=== PATIENT | female | born 1995 | race Two or more races ===

== ENCOUNTER 2021-06-05 13:47 | Outpatient (REF) | payer MEDICAID, SELFPAY ==
[2021-06-05 14:42] LABS: COVID-19 Test Positive (Negative)
== END 2021-06-05 13:48 | disposition home or self-care (01) ==
LOC: HO.LAB 13:47
PROVIDERS: Visit Provider Internal Medicine
DX: Z20.822 Contact with and (suspected) exposure to COVID-19 (principal)
CPT/HCPCS: 36415; 87635; C9803

== ENCOUNTER 2021-06-07 15:58 | Emergency (ER) | payer MEDICAID, SELFPAY ==
--- NOTE | ~2021-06-07 | CT_ITS ---
EXAMINATION: CT ANGIOGRAM OF THE CHEST WITH AND WITHOUT CONTRAST (CT PULMONARY ANGIOGRAM FOR PE) CLINICAL INFORMATION: positive COVID. Chest pain. COVID pneumonia? PE? COMPARISON: Chest x-ray 06/07/2021 TECHNIQUE: Prior to contrast administration, noncontrast localization images were obtained. Subsequently, multidetector volumetric imaging was performed from the thoracic inlet to below the diaphragms following the administration of 80 mL Omnipaque 350 intravenous contrast. No contrast reaction reported Sagittal, coronal, and MIP oblique sagittal reformatted images were obtained on the CT workstation, uploaded to PACS, and reviewed. This CT examination was performed using dose optimization techniques as appropriate, variously including the following: *Automated exposure control *Adjustment of mA and/or kV according to patient size (this includes techniques or standardized protocols for targeted exams where dose is matched to indication/reason for exam; i.e. extremities or head) *Use of iterative reconstruction technique Total exam dose-length product 209 mGy-cm FINDINGS: QUALITY OF STUDY/CONTRAST BOLUS: Satisfactory. PULMONARY ARTERIES: No central or segmental pulmonary emboli. THORACIC AORTA: No aneurysm or dissection. LUNG: No focal consolidation, nodules or masses. PLEURA: No pleural effusion or pneumothorax. MEDIASTINUM: Normal heart size. No pericardial effusion. No hilar or mediastinal lymphadenopathy. No evidence of septal bowing or right heart strain. CHEST WALL/AXILLA: No axillary or internal mammary lymphadenopathy. OSSEOUS STRUCTURES: No acute or suspicious osseous abnormality. UPPER ABDOMEN: Unremarkable. No reflux of contrast into the hepatic veins to suggest elevated right heart pressures. CT/CT angio chest PE protocol IMPRESSION: No pulmonary embolus seen. The lungs are clear. VTE: negative
--- NOTE | ~2021-06-07 | XR_ITS ---
EXAMINATION: XR CHEST CLINICAL INFORMATION: Covid pneumonia COMPARISON: None TECHNIQUE: Frontal view of the chest was obtained. FINDINGS: No significant abnormality is noted involving the heart, lungs, mediastinum, bony thorax or soft tissues. XR/XR chest 1V IMPRESSION: Unremarkable examination.
--- NOTE | ~2021-06-07 | CT_ITS ---
EXAMINATION: CT HEAD WITHOUT CONTRAST CT CERVICAL SPINE WITHOUT CONTRAST CLINICAL INFORMATION: Seizure, fall. COMPARISON: None TECHNIQUE: Contiguous axial imaging was performed from the skull base to vertex without intravenous administration of contrast. Contiguous axial imaging was performed from the upper chest through the skull base without intravenous administration of contrast. Coronal and sagittal reformats were obtained at the acquisition workstation. This CT examination was performed using dose optimization techniques as appropriate, variously including the following: *Automated exposure control *Adjustment of mA and/or kV according to patient size (this includes techniques or standardized protocols for targeted exams where dose is matched to indication/reason for exam; i.e. extremities or head) *Use of iterative reconstruction technique DLP: 299 mGy-cm FINDINGS: Head: There is no evidence of acute intracranial hemorrhage or edematous territorial infarction. There is no abnormal attenuation within the brain parenchyma. Ott-white matter differentiation is preserved. The ventricles are normal in size and configuration. No evidence for obstructive hydrocephalus. No abnormal mass effect or midline shift. No extra-axial fluid collections. No acute soft tissue or osseous abnormalities. Partial opacification of several ethmoidal air cells. The mastoids are clear. Cervical Spine: The atlantooccipital and atlantoaxial articulations remain well aligned. Straightening of the normal cervical lordosis. Otherwise, there is anatomic alignment of the vertebral bodies and posterior elements. No evidence of acute fracture or subluxation. The vertebral body heights and disc spaces are maintained. There is no prevertebral soft tissue swelling. The thyroid gland and remaining cervical soft tissues are normal in appearance. The lung apices demonstrate no abnormalities. CT/CT cervical spine wo con IMPRESSION: 1. No acute intracranial pathology. 2. No acute cervical fractures or malalignment. 3. Paranasal sinus disease in the ethmoidal air cells, correlate clinically for acute sinusitis.
[2021-06-07 16:21] LABS: Glucose, Whole Blood 84 mg/dL (60-115)
[2021-06-07 16:24] VITALS: BP 153/86; PULSE 92; RESP 18; TEMP 37.7; BMI 23.0
--- NOTE | 2021-06-07 16:24 | ECG_ITS ---
Test Reason : HEADACHE Blood Pressure : / mmHG Vent. Rate : 071 BPM Atrial Rate : 071 BPM P-R Int : 120 ms QRS Dur : 080 ms QT Int : 398 ms P-R-T Axes : 013 060 063 degrees QTc Int : 432 ms Normal sinus rhythm Normal ECG No previous ECGs available Referred By: Davide Bell Electronically Signed By:BRITANY POTTS MD
--- NOTE | 2021-06-07 16:29 | ED_ITS ---
HPI - General Adult General Chief complaint: Headache Stated complaint: covid + chest pain Time Seen by Provider: 06/07/21 16:23 Source: patient Mode of arrival: ambulatory Limitations: no limitations History of Present Illness HPI narrative: 25-year-old with past medical history of seizures recently tested positive for COVID yesterday presents to the ED for COVID like complaints. While waiting in the waiting room, patient seemed to have had a seizure-like episode on the floor. Patient brought to the main ED when she came to herself she states she has history of seizure and missed Dose of Keppra. Patient s tates she is not vaccinated and diagnosed with COVID yesterday. Patient states having headache, body aches, fever, chills, and chest pain. Related Data Allergies Allergy/AdvReac Type Severity Reaction Status Date / Time No Known Allergies Allergy Verified 06/07/21 16:24 Review of Systems Review of Systems: Yes all other systems are reviewed and are negative Constitutional: Constitutional: Reports as per HPI, Reports no additional constitutional complaints, Reports body ache(s), Reports chills, Reports fever(s) and Reports headache(s) Eyes: Eyes: Reports as per HPI and Reports no additional eye complaints ENT: Reports system reviewed and no additional complaints, except as documented, Reports as per HPI and Reports headache(s) Cardiovascular: Cardiovascular: Reports as per HPI, Reports no additional cardiovascular complaints and Reports chest pain Respiratory: Respiratory: Reports as per HPI and Reports no additional respiratory complaints Gastrointestinal: Gastrointestinal: Reports as per HPI and Reports no additional gastrointestinal complaints Genitourinary: Genitourinary: Reports no additional female genitourinary complaints and Reports as per HPI Musculoskeletal: Musculoskeletal: Reports no additional musculoskeletal complaints and Reports as per HPI Integumentary/Breasts: Skin/Breast: Reports system reviewed and no additional complaints, except as docu and Reports as per HPI Neurologic: Reports system reviewed and no additional complaints, except as documented, Reports as per HPI, Reports headache(s) and Reports seizure-like activity (waiting room) Psychiatric: Psychiatric: Reports no additional psychiatric complaints and Reports as per HPI [facility] Past Medical History Medical History (Updated 06/08/21 @ 00:03 by Sujata Dadieudonne) Seizures Social History Social History Advance Directives: No Advance Directives Information Provided: No Physical Exam Vital Signs: Vital Signs: Last Vital Signs Temp 99.9 F 06/07/21 16:24 Pulse 92 06/07/21 16:24 Resp 18 06/07/21 16:24 BP 153/86 H 06/07/21 16:24 BMI result Body Mass Index 23.0 Const: Other: After seizure patient alert oriented x3 General: cooperative, healthy appearing, comfortable, no acute distress, well developed, alert, awake and Physically active Orientation/consciousness: patient oriented x3 HENMT: Head: Yes normal to inspection, Yes No palpable skull fracture present, Yes normocephalic, Yes atraumatic and No abrasion Eyes: General: appearance normal, both eyes and all related structures Neck: Neck: Yes normal visual inspection, Yes full ROM, Yes no lymphadenopathy, Yes no meningeal signs, Yes trachea midline, Yes supple, No anterior neck swelling and No tender Chest: Chest palpation & inspection: normal inspection of the chest and normal palpation of entire chest wall Resp: Effort & Inspection: normal respiratory effort and able to speak in complete sentences Auscultation: clear to auscultation bilaterally Cardio: Jugular venous distension: no JVD Heart sounds: S1 normal heart sound present and S2 normal heart sound present GI: Inspection: Yes normal to inspection and No abdominal wall ecchymosis Palpation (GI): Soft to palpation, not firm, nontender, no guarding and not rigid : General: No CVA tenderness and Yes no CVA tenderness Back/Spine/Pelvis: Back: no CVA tenderness, No CVA tenderness and No back tenderness Skin: General skin exam: no rashes or lesions noted and elasticity normal Neuro: Other: patient no longer post-itcal General: patient oriented x3, gait normal, no meningeal signs and CN's II-XI intact bilaterally Cranial nerves: Yes CN's II-XII intact bilaterally Extrem: General: Yes normal to inspection and Yes full ROM Psych: Appearance: grossly normal, well kempt and not disheveled Course Course Course Narrative: Patient seems to have had seizure-like activity in the waiting room and came out of her postictal state. Keppra ordered. Patient states she missed her Keppra dose today. Patient also states having chest pain so will do EKG cardiac labs and chest x-ray. Fluids ordered. Fingerstick 84 per Reevaluation(s) Reevaluation #1: EKG negative STEMI. Head CT chest CT negative for bleed or PE. Chest CTA was done due to patient stating having chest pain and then seizure in the waiting room. Head CT negative for bleed negative for neck fracture. Patient alert oriented x3. Patient encouraged to continue self quarantine. Patient informed to be compliant with Keppra medication. Patient states at baseline she is anemic and usually has low blood count. There is no other H&H to compare in our system. Patient denies any rectal bleeding. Patient admits to history of heavy menstruation but presently is not on her menstruation. Rectal exam was discussed with patient to rule out any GI bleeding but patient refused and states she will follow-up with her primary care provider. Time: 20:59 Medical Decision Making MDM Narrative Medical decision making narrative: COVID. Seizure Lab Data Result diagrams: 06/07/21 16:45 06/07/21 16:45 Labs: Lab Results 06/07/21 06/07/21 06/07/21 Range/Units 16:15 16:45 16:45 WBC 5.7 (4.8-10.8) X10*3/uL RBC 4.61 (4.20-5.50) X10*6/uL Hgb 8.8 L (12.0-16.0) g/dl Hct 27.7 L (37.0-47.0) % MCV 60.1 L (80.0-98.0) fL MCH 19.1 L (27.0-33.0) pg MCHC 31.8 (31.0-35.0) g/dl RDW 17.0 H (11.0-16.0) % Plt Count 235 (160-400) X10*3/uL MPV 10.5 (9.4-12.3) fL Immature Gran % (Auto) 0.2 (0.0-0.4) % Neut % (Auto) 38.6 L (45-73) % Lymph % (Auto) 45.8 H (20-40) % Hickman % (Auto) 14.3 H (2-11) % Eos % (Auto) 0.9 (0-4) % Baso % (Auto) 0.2 (0-2) % Lymph # (Auto) 2.6 (1.2-4.9) X10*3/uL Hickman # (Auto) 0.8 (0.1-1.2) X10*3/uL Eos # (Auto) 0.1 (0.0-0.4) X10*3/uL Baso # (Auto) 0.0 (0.0-0.2) X10*3/uL Abs Immat Gran (auto) 0.01 (0.00-0.03) X10*3/uL Absolute Neuts (auto) 2.2 (2.0-8.3) x10*3/uL Absolute Nucleated RBC 0.000 (0.0-0.012) X10*3/uL Nucleated RBC % (auto) 0.0 (0.0-0.2) /100WBC Smear Tech's Comments VERIFIED PT 12.3 (9.9-13.0) SEC INR 1.1 (0.9-1.1) APTT 34.0 (24.1-38.0) SEC Sodium (135-145) mmol/L Potassium (3.3-5.1) mmol/L Chloride (96-108) mmol/L Carbon Dioxide (22-29) mmol/L Anion Gap (12-20) BUN (9-16) mg/dL Creatinine (0.5-1.4) mg/dL Estim Creat Clear Calc Estimated GFR POC Glucose 84 (60-115) mg/dL Random Glucose (60-115) mg/dL Calcium (8.4-10.2) mg/dL Ferritin (10-122) ng/mL Total Bilirubin (0.0-1.0) mg/dL AST (5-31) U/L ALT (0-31) U/L Alkaline Phosphatase (39-117) U/L Lactate Dehydrogenase (122-220) U/L Troponin I High Sens (<3.5-17.0) ng/L Total Protein (6.5-8.0) g/dL Albumin (3.5-5.0) g/dL Procalcitonin ng/mL Beta HCG, Quant mIU/mL 06/07/21 06/07/21 06/07/21 Range/Units 16:45 16:45 16:45 WBC (4.8-10.8) X10*3/uL RBC (4.20-5.50) X10*6/uL Hgb (12.0-16.0) g/dl Hct (37.0-47.0) % MCV (80.0-98.0) fL MCH (27.0-33.0) pg MCHC (31.0-35.0) g/dl RDW (11.0-16.0) % Plt Count (160-400) X10*3/uL MPV (9.4-12.3) fL Immature Gran % (Auto) (0.0-0.4) % Neut % (Auto) (45-73) % Lymph % (Auto) (20-40) % Hickman % (Auto) (2-11) % Eos % (Auto) (0-4) % Baso % (Auto) (0-2) % Lymph # (Auto) (1.2-4.9) X10*3/uL Hickman # (Auto) (0.1-1.2) X10*3/uL Eos # (Auto) (0.0-0.4) X10*3/uL Baso # (Auto) (0.0-0.2) X10*3/uL Abs Immat Gran (auto) (0.00-0.03) X10*3/uL Absolute Neuts (auto) (2.0-8.3) x10*3/uL Absolute Nucleated RBC (0.0-0.012) X10*3/uL Nucleated RBC % (auto) (0.0-0.2) /100WBC Smear Tech's Comments PT (9.9-13.0) SEC INR (0.9-1.1) APTT (24.1-38.0) SEC Sodium 139 (135-145) mmol/L Potassium 3.9 (3.3-5.1) mmol/L Chloride 109 H (96-108) mmol/L Carbon Dioxide 24 (22-29) mmol/L Anion Gap 10 L (12-20) BUN 10 (9-16) mg/dL Creatinine 0.69 (0.5-1.4) mg/dL Estim Creat Clear Calc 88.7 Estimated GFR > 60 POC Glucose (60-115) mg/dL Random Glucose 90 (60-115) mg/dL Calcium 9.3 (8.4-10.2) mg/dL Ferritin 6 L (10-122) ng/mL Total Bilirubin 0.4 (0.0-1.0) mg/dL AST 16 (5-31) U/L ALT 17 (0-31) U/L Alkaline Phosphatase 46 (39-117) U/L Lactate Dehydrogenase 135 (122-220) U/L Troponin I High Sens < 3.5 (<3.5-17.0) ng/L Total Protein 7.6 (6.5-8.0) g/dL Albumin 4.3 (3.5-5.0) g/dL Procalcitonin < 0.02 ng/mL Beta HCG, Quant mIU/mL 06/07/21 Range/Units 16:45 WBC (4.8-10.8) X10*3/uL RBC (4.20-5.50) X10*6/uL Hgb (12.0-16.0) g/dl Hct (37.0-47.0) % MCV (80.0-98.0) fL MCH (27.0-33.0) pg MCHC (31.0-35.0) g/dl RDW (11.0-16.0) % Plt Count (160-400) X10*3/uL MPV (9.4-12.3) fL Immature Gran % (Auto) (0.0-0.4) % Neut % (Auto) (45-73) % Lymph % (Auto) (20-40) % Hickman % (Auto) (2-11) % Eos % (Auto) (0-4) % Baso % (Auto) (0-2) % Lymph # (Auto) (1.2-4.9) X10*3/uL Hickman # (Auto) (0.1-1.2) X10*3/uL Eos # (Auto) (0.0-0.4) X10*3/uL Baso # (Auto) (0.0-0.2) X10*3/uL Abs Immat Gran (auto) (0.00-0.03) X10*3/uL Absolute Neuts (auto) (2.0-8.3) x10*3/uL Absolute Nucleated RBC (0.0-0.012) X10*3/uL Nucleated RBC % (auto) (0.0-0.2) /100WBC Smear Tech's Comments PT (9.9-13.0) SEC INR (0.9-1.1) APTT (24.1-38.0) SEC Sodium (135-145) mmol/L Potassium (3.3-5.1) mmol/L Chloride (96-108) mmol/L Carbon Dioxide (22-29) mmol/L Anion Gap (12-20) BUN (9-16) mg/dL Creatinine (0.5-1.4) mg/dL Estim Creat Clear Calc Estimated GFR POC Glucose (60-115) mg/dL Random Glucose (60-115) mg/dL Calcium (8.4-10.2) mg/dL Ferritin (10-122) ng/mL Total Bilirubin (0.0-1.0) mg/dL AST (5-31) U/L ALT (0-31) U/L Alkaline Phosphatase (39-117) U/L Lactate Dehydrogenase (122-220) U/L Troponin I High Sens (<3.5-17.0) ng/L Total Protein (6.5-8.0) g/dL Albumin (3.5-5.0) g/dL Procalcitonin ng/mL Beta HCG, Quant < 2 mIU/mL ECG Data Interpretation: Normal sinus rhythm, normal EKG. Ventricular rate 71. Pr interval 120. QRS 80. QTC 432. Negative STEMI Discharge Plan Discharge Clinical Impression: COVID-19, Seizure Patient Disposition: Home, Self-Care Instructions: Recurrent Seizures in Adults (ED), COVID-19 (Coronavirus Disease 2019) (ED) Additional Instructions: Pili s?ntomas se deben a COVID. El diagn?stico result? negativo por embolia pulmonar, hemorragia cerebral, fractura de bhavesh o ataque card?aco. Convulsiones debidas a la omisi?n de valdez dosis de keppra. Contin?e con el autoaislamiento. Regrese al servicio de urgencias si tiene dolor en el pecho, dificultad para respirar, debilidad, mareos, dificultad para hablar, declive facial, par?lisis de valdez extremidad, convulsiones recurrentes o cualquier otro s?ntoma preocupante. Stand Alone Forms: Work/School Release Interventions: ED Discharge Assessment Last Done: 06/07/21 21:20 Discharge Date/Time: 06/07/21 21:26 Print Language: Nauruan
[2021-06-07] MEDS: 0.9 % Sodium Chloride 1,000 ML 999 ML IV ×2 (16:48→17:51)
[2021-06-07 16:55] LABS: Basophils Percent Auto 0.2 % (0-2); Hemoglobin 8.8 g/dl (12.0-16.0); SCAN SMEAR FLAG 1
[2021-06-07 16:57] LABS: Eosinophils Absolute Auto 0.1 X10*3/uL (0.0-0.4); Eosinophils Percent Auto 0.9 % (0-4); Hematocrit 27.7 % (37.0-47.0); Imm Gran Abs Auto 0.01 X10*3/uL (0.00-0.03); Imm Gran Pct Auto 0.2 % (0.0-0.4); Lymphocytes Absolute Auto 2.6 X10*3/uL (1.2-4.9); Lymphocytes Percent Auto 45.8 % (20-40); MANUAL DIFF FLAG SCAN; Mean Corpuscular HGB Conc 31.8 g/dl (31.0-35.0); Mean Corpuscular Hemoglobin 19.1 pg (27.0-33.0); Mean Platelet Volume 10.5 fL (9.4-12.3); Monocytes Absolute Auto 0.8 X10*3/uL (0.1-1.2); Monocytes Percent Auto 14.3 % (2-11); Neutrophils Absolute Auto 2.2 x10*3/uL (2.0-8.3); Neutrophils Percent Auto 38.6 % (45-73); Platelet Count 235 X10*3/uL (160-400); Red Blood Count 4.61 X10*6/uL (4.20-5.50); White Blood Count 5.7 X10*3/uL (4.8-10.8)
[2021-06-07] MEDS: levETIRAcetam in NaCl (iso-os) 1,000 MG/100 ML PIGGYBACK 400 MG IV (17:00)
[2021-06-07 17:10] LABS: INTERNATIONAL NORM RATIO 1.1 (0.9-1.1); Prothrombin Time 12.3 SEC (9.9-13.0)
[2021-06-07 17:13] LABS: Alanine Aminotransferase 17 U/L (0-31); Albumin Level 4.3 g/dL (3.5-5.0); Alkaline Phosphatase 46 U/L (39-117); Anion Gap 10 (12-20); Aspartate Amino Transferase 16 U/L (5-31); Bilirubin Total 0.4 mg/dL (0.0-1.0); Blood Urea Nitrogen 10 mg/dL (9-16); Calcium 9.3 mg/dL (8.4-10.2); Carbon Dioxide 24 mmol/L (22-29); Chloride 109 mmol/L (96-108); Creatinine Clr Calc Pharmacy 88.7; Estimated Glomerular Filt Rate > 60; Glucose Random 90 mg/dL (60-115); Lactate Dehydrogenase 135 U/L (122-220); Potassium 3.9 mmol/L (3.3-5.1); Sodium 139 mmol/L (135-145); Total Protein 7.6 g/dL (6.5-8.0)
[2021-06-07 17:16] LABS: Troponin-I High Sensitivity < 3.5 ng/L (<3.5-17.0)
[2021-06-07 17:17] LABS: Mean Corpuscular Volume 60.1 fL (80.0-98.0); PLT ABN DIST 1
[2021-06-07 17:29] LABS: Procalcitonin < 0.02 ng/mL; SLIDE REVIEW VERIFIED
[2021-06-07 17:35] LABS: Ferritin 6 ng/mL (10-122)
[2021-06-07] MEDS: Acetaminophen 325 MG TABLET 650 MG PO (17:50)
[2021-06-07 18:08] LABS: HCG Quantitative < 2 mIU/mL
[2021-06-07] MEDS: iohexoL 350 MG/ML 100 ML INFUS..BTL IV (18:48)
== END 2021-06-07 21:26 | disposition home or self-care (01) ==
PROVIDERS: Physician Assistant; Emergency Provider Emergency Medicine Emergency Medical Services
DX: U07.1 COVID-19 (principal); R56.9 Unspecified convulsions; Z79.899 Other long term (current) drug therapy
CPT/HCPCS: 36415; 70450; 71045; 71275; 72125; 80053; 82728; 82947; 83615; 84145; 84484; 84702; 85025; 85610; 85730; 93005; 96361; 96374; 99284; J1953; Q9967

== ENCOUNTER 2021-07-04 08:55 | Emergency (ER) | payer MEDICAID, OTHER, SELFPAY ==
[2021-07-04] VITALS (8 sets, daily range): BP systolic 99–130; BP diastolic 51–70; PULSE 76–113; RESP 16–18; TEMP 36.6–36.8; O2SAT 94–100; BMI 18.7
[2021-07-04] MEDS: LORazepam 2 MG/ML VIAL IM (09:50)
--- NOTE | 2021-07-04 10:02 | PC.NURSE ---
while in [facility] patient began to have tremors wei hands, eye rolling, difficulty responding to RN. was brought to [facility], evaluated by MD and placed in a bed for IM ativan. Before full dose of injection was administered pt began to relax and was able to follow basic command of opening eyes . skin remained PWD throughout episode which lasted aprox 5 minutes in total.
[2021-07-04 10:32] LABS: MANUAL DIFF FLAG NO
[2021-07-04 10:39] LABS: INTERNATIONAL NORM RATIO 1.1 (0.9-1.1); Prothrombin Time 12.2 SEC (9.9-13.0)
[2021-07-04 10:40] LABS: Basophils Percent Auto 0.3 % (0-2); Eosinophils Absolute Auto 0.1 X10*3/uL (0.0-0.4); Hematocrit 28.1 % (37.0-47.0); Hemoglobin 8.8 g/dl (12.0-16.0); Imm Gran Abs Auto 0.02 X10*3/uL (0.00-0.03); Imm Gran Pct Auto 0.3 % (0.0-0.4); Lymphocytes Percent Auto 27.9 % (20-40); Mean Corpuscular HGB Conc 31.3 g/dl (31.0-35.0); Mean Corpuscular Hemoglobin 19.1 pg (27.0-33.0); Mean Platelet Volume 10.6 fL (9.4-12.3); Monocytes Absolute Auto 0.6 X10*3/uL (0.1-1.2); Neutrophils Absolute Auto 4.3 x10*3/uL (2.0-8.3); Neutrophils Percent Auto 61.5 % (45-73); Platelet Count 268 X10*3/uL (160-400); Red Cell Distribution Width 17.1 % (11.0-16.0)
[2021-07-04 10:41] LABS: Mean Corpuscular Volume 61.1 fL (80.0-98.0); Partial Thromboplastin Time 35.8 SEC (24.1-38.0)
[2021-07-04 10:48] LABS: Alanine Aminotransferase 9 U/L (0-31); Albumin Level 4.6 g/dL (3.5-5.0); Alkaline Phosphatase 43 U/L (39-117); Anion Gap 10 (12-20); Aspartate Amino Transferase 14 U/L (5-31); Bilirubin Total 1.2 mg/dL (0.0-1.0); Blood Urea Nitrogen 11 mg/dL (9-16); Calcium 9.4 mg/dL (8.4-10.2); Carbon Dioxide 22 mmol/L (22-29); Chloride 109 mmol/L (96-108); Creatinine Clr Calc Pharmacy 105.7; Estimated Glomerular Filt Rate > 60; Glucose Random 90 mg/dL (60-115); Potassium 4.1 mmol/L (3.3-5.1); Sodium 137 mmol/L (135-145); Total Protein 7.9 g/dL (6.5-8.0)
[2021-07-04 10:55] LABS: HCG Quantitative < 2 mIU/mL
--- NOTE | 2021-07-04 10:58 | ED_ITS ---
HPI - General Adult General Chief complaint: Weakness Stated complaint: WEAK ABD LABS Time Seen by Provider: 07/04/21 09:34 Source: patient Mode of arrival: ambulatory Limitations: no limitations History of Present Illness HPI narrative: 25 yold female with pmh seizure and anemia presents to the ED for lethargy and blood transfusion. patient was informed by her PCP last week that she needed a blood tranfusion due to her Hemoglobin of 7. patient states she refused the blood transfusion. patient states she has scheduled Iron transfussion tomorrow. patien states since last week feeling weak and at work had a near syncopal episode. patient states feeling lightheaded so she came to the ED for possible blood tranfusion. patient denies any chest pain or shortness of breath. patient states anemia due to having vaginal bleeding during mensturaiton. patieint presently denies any vaginal bleding or rectal bleeding. patient states no abdominal pain. ptient denies passing out. Related Data Allergies Allergy/AdvReac Type Severity Reaction Status Date / Time No Known Allergies Allergy Verified 07/04/21 09:08 Review of Systems Verdana 4l Review of Systems: Verdana 4d lightheadedness. anemia. Verdana 4d fatigue. Verdana 4d Yes all other systems are reviewed and are negative FORMERLY [facility], 1928–1983 Social History Social History Alcohol intake: never Patient Tobacco Use Status: Never used Tobacco Physical Exam Verdana 4l Vital Signs: Verdana 4d Verdana 4d Vital Signs: Verdana 4d Verdana 4Bd Last Vital Signs Verdana 4d Cyber Security New 4d Cyber Security New 4d Temp 98.2 F 07/04/21 12:07 Cyber Security New 4d Pulse 108 H 07/04/21 14:12 Cyber Security New 4d Resp 18 07/04/21 14:12 BP 102/60 07/04/21 14:12 Pulse Ox 100 07/04/21 14:12 BMI result Body Mass Index 18.7 Const: Other: patient calm collective after receiving ativan for possible panic attack vs seizure in waiting room. General: cooperative, healthy appearing, comfortable, no acute distress, well developed, alert and awake Orientation/consciousness: patient oriented x3 HENMT: Head: Yes normal to inspection, Yes No palpable skull fracture present, Yes normocephalic, Yes atraumatic and No abrasion Eyes: General: appearance normal, both eyes and all related structures Neck: Neck: Yes normal visual inspection, Yes full ROM, Yes no lymphadenopathy, Yes no meningeal signs, Yes trachea midline, Yes supple, No anterior neck swelling and No tender Chest: Chest palpation & inspection: normal inspection of the chest and normal palpation of entire chest wall Resp: Effort & Inspection: normal respiratory effort and able to speak in complete sentences Auscultation: clear to auscultation bilaterally Cardio: Jugular venous distension: no JVD Heart sounds: S1 normal heart sound present and S2 normal heart sound present GI: Inspection: Yes normal to inspection and No abdominal wall ecchymosis Palpation (GI): Soft to palpation, not firm, nontender, no guarding and not rigid : General: No CVA tenderness and Yes no CVA tenderness Back/Spine/Pelvis: Back: no CVA tenderness, No CVA tenderness and No back tenderness Skin: General skin exam: no rashes or lesions noted and elasticity normal Neuro: Other: negative pronator drift. negative slurred speech. negative facial droop. all extremites equal strength 5+. Finger to nose and rapid hand movement intact. General: patient oriented x3, gait normal, tone normal, moves all extremities, Normal light touch and pain sensation, no meningeal signs, no focal motor deficits, CN's II-XI intact bilaterally, normal sensation to monofilament and deep tendon reflexes 2+ bilaterally Extrem: General: Yes normal to inspection and Yes full ROM Psych: Appearance: grossly normal, well kempt and not disheveled Course Course Course Narrative: type and scree and labs including fluids ordered. patient had seizure like activity in the waiting room and was given ativan by Dr. Virk. patient states she takes keppra, but did not take her suppossed dose. Reevaluation(s) Reevaluation #1: Patient's hemoglobin and hematocrit improved. last week hemoglobin was 7 and today its 8.8. negative for any neurodeficits. No head CT indicated. NIH score is 0. Not suspecting PE. . Heart Score is 0. patient is on progestin birthcontrol and not estrogen. Waiting for orthostatics. EKG negative STEMI Time: 10:29 Reevaluation #2: Orthostatics is negtives. patient feels better. patient will follow up with her PCP tomorrow for Iron Transfusion. Time: 14:42 Medical Decision Making MDM Narrative Medical decision making narrative: Anemia Lab Data Result diagrams: 07/04/21 10:29 07/04/21 10:29 Labs: Lab Results 07/04/21 07/04/21 07/04/21 Range/Units 10:29 10:29 10:29 WBC 7.0 (4.8-10.8) X10*3/uL RBC 4.60 (4.20-5.50) X10*6/uL Hgb 8.8 L (12.0-16.0) g/dl Hct 28.1 L (37.0-47.0) % MCV 61.1 L (80.0-98.0) fL MCH 19.1 L (27.0-33.0) pg MCHC 31.3 (31.0-35.0) g/dl RDW 17.1 H (11.0-16.0) % Plt Count 268 (160-400) X10*3/uL MPV 10.6 (9.4-12.3) fL Immature Gran % (Auto) 0.3 (0.0-0.4) % Neut % (Auto) 61.5 (45-73) % Lymph % (Auto) 27.9 (20-40) % [place] % (Auto) 9.0 (2-11) % Eos % (Auto) 1.0 (0-4) % Baso % (Auto) 0.3 (0-2) % Lymph # (Auto) 2.0 (1.2-4.9) X10*3/uL [place] # (Auto) 0.6 (0.1-1.2) X10*3/uL Eos # (Auto) 0.1 (0.0-0.4) X10*3/uL Baso # (Auto) 0.0 (0.0-0.2) X10*3/uL Abs Immat Gran (auto) 0.02 (0.00-0.03) X10*3/uL Absolute Neuts (auto) 4.3 (2.0-8.3) x10*3/uL Absolute Nucleated RBC 0.000 (0.0-0.012) X10*3/uL Nucleated RBC % (auto) 0.0 (0.0-0.2) /100WBC PT 12.2 (9.9-13.0) SEC INR 1.1 (0.9-1.1) APTT 35.8 (24.1-38.0) SEC Sodium 137 (135-145) mmol/L Potassium 4.1 (3.3-5.1) mmol/L Chloride 109 H (96-108) mmol/L Carbon Dioxide 22 (22-29) mmol/L Anion Gap 10 L (12-20) BUN 11 (9-16) mg/dL Creatinine 0.67 (0.5-1.4) mg/dL Estim Creat Clear Calc 105.7 Estimated GFR > 60 Random Glucose 90 (60-115) mg/dL Calcium 9.4 (8.4-10.2) mg/dL Total Bilirubin 1.2 H (0.0-1.0) mg/dL AST 14 (5-31) U/L ALT 9 (0-31) U/L Alkaline Phosphatase 43 (39-117) U/L Troponin I High Sens (<3.5-17.0) ng/L Total Protein 7.9 (6.5-8.0) g/dL Albumin 4.6 (3.5-5.0) g/dL Beta HCG, Quant < 2 mIU/mL Urine Color Urine Appearance Urine pH (5.0-8.0) Ur Specific [place] (1.005-1.025) Urine Protein (NEG-TRACE) MG/DL Urine Glucose (UA) (NEG) MG/DL Urine Ketones (NEG) MG/DL Urine Blood (NEG) Urine Nitrite (NEG) Ur Leukocyte Esterase (NEG) Urine RBC (0) /HPF Urine WBC (0-4) /HPF Ur Squamous Epith Cells /LPF Urine Bacteria /LPF Blood Type Antibody Screen 07/04/21 07/04/21 07/04/21 Range/Units 10:29 11:27 11:46 WBC (4.8-10.8) X10*3/uL RBC (4.20-5.50) X10*6/uL Hgb (12.0-16.0) g/dl Hct (37.0-47.0) % MCV (80.0-98.0) fL MCH (27.0-33.0) pg MCHC (31.0-35.0) g/dl RDW (11.0-16.0) % Plt Count (160-400) X10*3/uL MPV (9.4-12.3) fL Immature Gran % (Auto) (0.0-0.4) % Neut % (Auto) (45-73) % Lymph % (Auto) (20-40) % [place] % (Auto) (2-11) % Eos % (Auto) (0-4) % Baso % (Auto) (0-2) % Lymph # (Auto) (1.2-4.9) X10*3/uL [place] # (Auto) (0.1-1.2) X10*3/uL Eos # (Auto) (0.0-0.4) X10*3/uL Baso # (Auto) (0.0-0.2) X10*3/uL Abs Immat Gran (auto) (0.00-0.03) X10*3/uL Absolute Neuts (auto) (2.0-8.3) x10*3/uL Absolute Nucleated RBC (0.0-0.012) X10*3/uL Nucleated RBC % (auto) (0.0-0.2) /100WBC PT (9.9-13.0) SEC INR (0.9-1.1) APTT (24.1-38.0) SEC Sodium (135-145) mmol/L Potassium (3.3-5.1) mmol/L Chloride (96-108) mmol/L Carbon Dioxide (22-29) mmol/L Anion Gap (12-20) BUN (9-16) mg/dL Creatinine (0.5-1.4) mg/dL Estim Creat Clear Calc Estimated GFR Random Glucose (60-115) mg/dL Calcium (8.4-10.2) mg/dL Total Bilirubin (0.0-1.0) mg/dL AST (5-31) U/L ALT (0-31) U/L Alkaline Phosphatase (39-117) U/L Troponin I High Sens < 3.5 (<3.5-17.0) ng/L Total Protein (6.5-8.0) g/dL Albumin (3.5-5.0) g/dL Beta HCG, Quant mIU/mL Urine Color STRAW Urine Appearance CLEAR Urine pH 6.0 (5.0-8.0) Ur Specific [place] <= 1.005 (1.005-1.025) Urine Protein NEG (NEG-TRACE) MG/DL Urine Glucose (UA) NEG (NEG) MG/DL Urine Ketones NEG (NEG) MG/DL Urine Blood TRACE (NEG) Urine Nitrite NEG (NEG) Ur Leukocyte Esterase NEG (NEG) Urine RBC 0-2 (0) /HPF Urine WBC 0 (0-4) /HPF Ur Squamous Epith TRACE /LPF Cells Urine Bacteria NONE /LPF Blood Type A Positive Antibody Screen NEGATIVE ECG Data Interpretation: NOrmal Sinus rhythm, NOrmal EKG, Vent rate 100, [place] 132, QRS, 76, and QTC 446. n egative STEMI Discharge Plan Discharge Clinical Impression: Anemia, Fatigue Patient Disposition: Home, Self-Care Instructions: Near Syncope (ED), Recurrent Seizures in Adults (ED), Fatigue (ED), Anemia (ED) Additional Instructions: Rosario an?lisis de zachary result? normal. Por favor, jessica un seguimiento con rosario PCP. Regrese al servicio de urgencias de inmediato si tiene dificultad para respirar, tos con zachary, fiebre, escalofr?os, dolor en el costado, sangrado vaginal, sangrado rectal, desmayo, dolor en el pecho o cualquier otro s?ntoma preocupante. Por favor, jessica un seguimiento ma?jeanette con rosario PCP para la infusi?n de eduardo. Stand Alone Forms: Work/School Release Interventions: ED Discharge Assessment Last Done: 07/04/21 15:27 Discharge Date/Time: 07/04/21 15:28 Print Language: Mongolian
--- NOTE | 2021-07-04 11:00 | ECG_ITS ---
Test Reason : weakness Blood Pressure : / mmHG Vent. Rate : 100 BPM Atrial Rate : 100 BPM P-R Int : 132 ms QRS Dur : 076 ms QT Int : 346 ms P-R-T Axes : 058 063 051 degrees QTc Int : 446 ms Normal sinus rhythm Normal ECG No previous ECGs available Referred By: Davide Bell Electronically Signed By:NATALIYA VÁSQUEZ
[2021-07-04] MEDS: levETIRAcetam 1,000 MG TABLET 1000 MG PO (11:39)
[2021-07-04] MEDS: hydrOXYzine HCL 50 MG TABLET PO (11:39)
[2021-07-04] MEDS: 0.9 % Sodium Chloride 1,000 ML 999 ML IV (11:39)
[2021-07-04 11:52] LABS: Appearance Urine CLEAR; Color Urine STRAW; Glucose Urine UA NEG (NEG); Leukocyte Esterase Urine NEG (NEG); Nitrite Urine NEG (NEG); Specific Gravity - Urine <= 1.005 (1.005-1.025); UACC Culture Trigger NO; Urine Blood TRACE (NEG); Urine Ketones NEG (NEG); Urine Protein NEG (NEG-TRACE)
[2021-07-04 11:57] LABS: Troponin-I High Sensitivity < 3.5 ng/L (<3.5-17.0)
[2021-07-04 12:03] LABS: RBC Urine 0-2 /HPF (0); Squamous Epithelial Cell Urine TRACE /LPF; WBC Urine 0 /HPF (0-4)
== END 2021-07-04 15:28 | disposition home or self-care (01) ==
PROVIDERS: Physician Assistant; Emergency Provider Emergency Medicine Emergency Medical Services; PCP Emergency Medicine
DX: D64.9 Anemia, unspecified (principal); R53.83 Other fatigue; F41.9 Anxiety disorder, unspecified
CPT/HCPCS: 36415; 80053; 81001; 84484; 84702; 85025; 85610; 85730; 86850; 86900; 86901; 93005; 96360; 96372; 99285; J2060

== ENCOUNTER 2021-07-10 07:55 | Outpatient (REF) | payer MEDICAID, OTHER, SELFPAY | END 2021-07-10 07:56 | disposition home or self-care (01) | LOC: HO.MDS 07:55 | PROVIDERS: Visit Provider Internal Medicine Medical Oncology | DX: D50.9 Iron deficiency anemia, unspecified (principal); N92.0 Excessive and frequent menstruation with regular cycle | CPT/HCPCS: 96365; 96366; J1200; J1750; Q0163 ==

== ENCOUNTER 2021-07-13 09:53 | Outpatient (REF) | payer MEDICAID, OTHER, SELFPAY ==
--- NOTE | ~2021-07-13 | US_ITS ---
EXAMINATION: US DIAGNOSTIC ULTRASOUND BREAST, RIGHT CLINICAL INFORMATION: 25-year-old with palpable nodule for 3 months medial right breast. COMPARISON: None. TECHNIQUE: Ultrasound right breast is targeted to the palpable area of concern. Patient is able to point to the area at time of imaging. Grayscale imaging and color Doppler are performed. FINDINGS: There is a circumscribed solid nodule at site of clinical palpable concern 4:00 position 1 cm from nipple measuring 1.3 x 0.6 x 0.8 cm. There is no other cystic or solid mass. No edema tracking in soft tissue planes. No duct ectasia or architectural abnormality. Results are discussed with the patient at time of visit, using an park interpreter. 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 Management options discussed with patient. Patient prefers ultrasound-guided core sampling. 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 ASSESSMENT: BI-RADS 4: Suspicious (subcategory 4A: Low suspicion for malignancy) RECOMMENDATION: Ultrasound-guided core biopsy right breast.
== END 2021-07-13 09:54 | disposition home or self-care (01) ==
LOC: HO.MAMMO 09:53
PROVIDERS: Visit Provider Advanced Practice Midwife
DX: N63.41 Unspecified lump in right breast, subareolar (principal)
CPT/HCPCS: 76642

== ENCOUNTER → 2021-07-14 08:35 | Outpatient (BNVA) | payer MEDICAID, OTHER, SELFPAY | PROVIDERS: PCP Registered Nurse; Referring Provider Registered Nurse; Visit Provider Surgery | DX: N63.12 Unspecified lump in the right breast, upper inner quadrant (principal); R92.8 Other abnormal and inconclusive findings on diagnostic imaging of breast | CPT/HCPCS: 99202 ==

== ENCOUNTER 2021-07-17 09:51 | Outpatient (REF) | payer MEDICAID, OTHER, SELFPAY ==
--- NOTE | ~2021-07-17 | US_ITS ---
EXAMINATION: ULTRASOUND GUIDED CORE BIOPSY BREAST, RIGHT CLINICAL INFORMATION: 25-year-old with palpable nodule for 3 months medial right breast, likely fibroadenoma. Patient prefers tissue sampling to serial ultrasound follow-up. COMPARISON: Targeted ultrasound right breast 07/13/2021. FINDINGS: Proper informed consent is obtained from the patient after discussion of the procedure, potential risks and complications, and alternatives. Patient was given an opportunity for questions. The patient appeared to understand. The patient consented to the procedure and signed the consent form. GUIDANCE: Ultrasound-guided; aseptic technique. LESION: Circumscribed oval nodule 1.3 cm 4:00 position periareolar right breast, likely fibroadenoma. APPROACH: Oblique lateral medial. ANESTHESIA: 10 mL carbonated 1% lidocaine. DERMATOTOMY: Single skin dashawn dermatotomy performed. NEEDLE: 14-gauge Achieve core biopsy device with 13.5-gauge co-axial guide needle. CORES: 4. CLIP: HydroMARK; shape: butterfly. Clip deployment is seen during real-time ultrasound. Clip resides at edge of the nodule. The patient tolerated the procedure well. No immediate complications. Home instructions reviewed with the patient and her mother. Final pathology results are pending. US/US breast ndl core biopsy RT IMPRESSION: 1. Status post ultrasound-guided core biopsy right breast. 2. Clip placed: HydroMARK; shape: butterfly. 3. Pathology pending. An addendum report will be issued.
[2021-07-17] MEDS: Lidocaine HCl 1 % 20 ML VIAL 9 ML SUBCUT (11:12)
[2021-07-17] MEDS: Sodium Bicarbonate 8.4% 50 MEQ/50 ML VIAL SUBCUT (11:13)
== END 2021-07-17 09:52 | disposition home or self-care (01) ==
LOC: HO.MAMMO 09:51
PROVIDERS: PCP Registered Nurse; Visit Provider Surgery
DX: N63.14 Unspecified lump in the right breast, lower inner quadrant (principal); R92.8 Other abnormal and inconclusive findings on diagnostic imaging of breast
CPT/HCPCS: 19083; 88305

== ENCOUNTER → 2021-07-20 13:38 | Outpatient (BNVA) | payer MEDICAID, OTHER, SELFPAY | PROVIDERS: PCP Registered Nurse; Referring Provider Registered Nurse; Visit Provider Surgery | DX: D24.1 Benign neoplasm of right breast (principal) | CPT/HCPCS: 99212 ==

== ENCOUNTER 2021-07-27 10:55 | Outpatient (REF) | payer MEDICAID, OTHER, SELFPAY ==
--- NOTE | ~2021-07-27 | US_ITS ---
EXAMINATION: US PELVIS CLINICAL INFORMATION: Excessive and frequent menstruation COMPARISON: None TECHNIQUE: Ultrasound of the pelvis is performed using both transabdominal and transvaginal transducers along with Doppler. Transvaginal imaging is performed due to inadequate visualization transabdominally. FINDINGS: Uterus: The uterus is slightly retroverted and retroflexed and measures measuring 8.7 cm in length, 4.4 cm in AP and 5.0 cm and transverse dimension. The double wall endometrial thickness is 0.79 cm. The uterus is smooth in contour and has normal myometrial echogenicity. No visible fibroid. Adnexa: Both ovaries are visualized. There is normal color flow to the adnexa. There is no ovarian torsion. There is no pelvic ascites or fluid collection. Right ovary measures 3.6 x 1.8 x 2.2 and volume 7.4 mL.. There are small follicular cysts seen. Left ovary measures 3.1 x 2.0 x 1.6 CM and volume 5.1 mL. There are small left ovarian follicles visualized. There is mild prominent pelvic veins suggestive of venous congestion. There is no free fluid in cul-de-sac. US/US pelvic and transvaginal IMPRESSION: Unremarkable uterus. Small follicular cysts in both ovaries. There is mild pelvic congestion bilaterally. There is no free fluid in the pelvis.
== END 2021-07-27 10:56 | disposition home or self-care (01) ==
LOC: HO.HMGCX 10:55
PROVIDERS: PCP Registered Nurse; Visit Provider Registered Nurse
DX: N92.0 Excessive and frequent menstruation with regular cycle (principal)
CPT/HCPCS: 76830; 76856

== ENCOUNTER 2021-12-21 12:59 | Emergency (ER) | payer MEDICAID, SELFPAY ==
--- NOTE | ~2021-12-21 | CT_ITS ---
EXAMINATION: CT HEAD WITHOUT CONTRAST CLINICAL INFORMATION: Persistent headache. COMPARISON: Head CT from 06/07/2021 TECHNIQUE: Contiguous axial imaging was performed from the skull base to vertex without intravenous administration of contrast. This CT examination was performed using dose optimization techniques as appropriate, variously including the following: *Automated exposure control *Adjustment of mA and/or kV according to patient size (this includes techniques or standardized protocols for targeted exams where dose is matched to indication/reason for exam; i.e. extremities or head) *Use of iterative reconstruction technique DLP: 586 mGy-cm FINDINGS: The brain parenchyma has normal attenuation. The russell-white matter differentiation is well preserved. No evidence of an acute major vascular territory infarction. No intracranial hemorrhage, extra-axial fluid collection, focal mass effect or midline shift. The ventricles have normal size and configuration; no hydrocephalus. The brainstem and cerebellum have a normal appearance. The cerebellar tonsils are in normal position. The calvarium is intact. The visualized paranasal sinuses, mastoid air cells and middle ear cavities are well aerated. The visualized portions of the orbits and globes are unremarkable. The temporomandibular joints are normal. CT/CT head/brain wo con IMPRESSION: Normal noncontrast CT imaging examination of the head. No evidence of mass, hemorrhage or cerebral infarction.
[2021-12-21 13:03] VITALS: BP 133/79; PULSE 78; RESP 16; O2SAT 96; BMI 22.1
--- NOTE | 2021-12-21 13:06 | ECG_ITS ---
Test Reason : SEIZURE Blood Pressure : / mmHG Vent. Rate : 063 BPM Atrial Rate : 063 BPM P-R Int : 174 ms QRS Dur : 090 ms QT Int : 426 ms P-R-T Axes : 051 036 052 degrees QTc Int : 435 ms Normal sinus rhythm Normal ECG When compared to the previous EKG of No significant changes seen Referred By: Samira Young Electronically Signed By:Fab Waldrop
[2021-12-21 13:50] LABS: MANUAL DIFF FLAG NO
--- NOTE | 2021-12-21 13:51 | ED_ITS ---
HPI - Headache General Chief Complaint: Seizure Stated Complaint: headaches Time Seen by Provider: 12/21/21 13:04 Source: patient Mode of arrival: wheelchair Limitations: language barrier (Georgian-speaking home health care worker utilized) History of Present Illness HPI Narrative: Patient presented to the emergency department for evaluation of headaches. While checking in at triage she syncopized and was caught by staff and family then assisted to wheelchair, at that time patient was unable to bear any weight, was noted to have her eyes fluttering and not responding to verbal or painful stimuli and is lying in the chair. Triage staff attempted to raise patient's hand above her head and her arm to the side strike her face. The patient was brought in to the treatment room her symptoms had resolved, and she was not n oted to be postictal afterwards, there was no incontinence. She reports that she is on Keppra for a seizure history, states at times she has with pain to be described as tonic clonic seizures and others as a seizure that happens like today , she reports that she took her Keppra this morning. Has b een taking it as prescribed. She states that she has been having a severe headache for the past 2 days despite taking her Topamax as prescribed. She denies any recent ill symptoms, exposures, vision changes, neck pain, neck stiffness, ear pain, ringing of the ears and a sore throat, fevers, chills chest pain palpitations shortness of breath, difficulty breathing, nausea vomiting, abdominal pain. Denies possibility of . Related Data Home Medications Medication Instructions Recorded Confirmed drospirenone (contraceptive) 4 mg 1 tab PO DAILY 07/05/21 10/05/21 (28) tablet (Slynd) ergotamine tartrate 2 mg 2 mg sublingual Q30M PRN Headache 07/05/21 10/05/21 sublingual tablet (Ergomar) ferrous gluconate 324 mg (38 mg 324 mg PO USEASDIRECTD 07/05/21 10/05/21 iron) tablet levetiracetam 1,000 mg tablet 1,000 mg PO Q12H 07/05/21 10/05/21 (Keppra) topiramate 25 mg tablet 25 mg PO BID 10/05/21 10/05/21 Allergies Allergy/AdvReac Type Severity Reaction Status Date / Time No Known Allergies Allergy Verified 12/21/21 13:03 Review of Systems Review of Systems: As noted in HPI, all additional 10pt review of systems negative Yes all other systems are reviewed and are negative [facility] Past Medical History Attestation statement: The following information was validated with the patient. Source: old records reviewed Medical History delivery delivered Chronic headaches Heavy menstrual bleeding LIANA (iron deficiency anemia) Seizures Surgical History History of delivery Family History Family History Brother Diabetes mellitus, type 2 Father Diabetes mellitus type 2, controlled Paternal Grandmother Breast cancer Social History Social History Household Members: Children Housing: House Are you a primary pediatric critical care nurse to a significant other at home: No Do you presently have visiting nurse or other home services: No Alcohol intake: never Patient Tobacco Use Status: Never used Tobacco Use of substances other than those prescribed or required for medical reasons: No Advance Directives: No Advance Directives Information Provided: Yes Patient : No service: No Current occupational status: unemployed Physical Exam Vital Signs: Vital Signs: Last Vital Signs Temp 98.0 F 12/21/21 14:37 Pulse 60 12/21/21 15:25 Resp 14 12/21/21 15:25 BP 101/39 L 12/21/21 15:25 Pulse Ox 100 12/21/21 15:25 O2 Del Method 12/21/21 15:25 BMI result Body Mass Index 22.1 Vital signs have been reviewed as normal and appeared to be correct. Blood pressure normal.? Heart rate normal.? Respiration rate normal. Temperature normal.? Oxygen saturation normal. Appearance: Alert.?Oriented to person, place and time. No acute distress.?Normal affect. Eyes: Pupils equal, round and reactive to light.?EOMi. No nystagmus ENT: Pharynx normal.?? Neck: Normal inspection.? Neck supple.?? CVS: Heart sounds normal. Normal heart rate and rhythm.? Pulses normal.?? Respiratory: No respiratory distress.? Lung sounds clear to auscultation bilaterally?? Abdomen: Soft and non-tender. Normoactive bowel sounds. ? Skin: Skin warm and dry.? Normal skin color.? Extremities: No lower extremity edema.? Neuro: Moves all extremities spontaneously. Sensation intact bilaterally. CN II- XII intact. No focal neuro deficits. Ambulates with normal steady gait. Course Course Course Narrative: Patient is a 26-year-old female with past medical history of chronic migraines, iron deficiency anemia, and seizures who presents emergency department today for evaluation of however, was noted to have seizure-like activity with full body weakness, with rapid blinking of her eyes and nystagmus while checking in at registration. Activity had resolved once brought to treatment room, was not noted to be postictal at that time, no incontinence. Will obtain CBC to evaluate for leukocytosis/ anemia, CMP to evaluate for abnormal electrolytes /abnormal renal function/ abnormal hepatic/biliary function, EKG and troponin to evaluate for ischemia/ACS. CT of the head evaluate for ICH/SAH/mass. For headache, patient received 1 L normal saline, ketorolac IV, and Reglan IV. Reevaluation(s) Reevaluation #1: CBC overall unremarkable, no significant anemia or leukocytosis. CMP is overall unremarkable. Troponin <3.5 and EKG reveals normal sinus rhythm no acute ischemic findings. CT of the head reveals no acute pathology. At this time patient has remained free from any seizure-like activity since her arrival to the emergency department. Her headache has resolved after receiving medications. She has no continued complaints at this time. She is ambulatory with a steady gait. She does report that she is only taking preventative medication for her migraines, has no abortive medication, advised following up with her neurologist for further management of migraines. Discussed worrisome signs and symptoms to return back to the emergency department for. Advised to continue taking all her medications as prescribed. She was discharged home in stable condition. Time: 16:02 [facility] - Headache Medical Records Attestation: I reviewed the patient's medical records. Lab Data Attestation: I reviewed the patient's lab results. Result diagrams: 12/21/21 13:44 12/21/21 13:44 Labs: Lab Results 12/21/21 12/21/21 12/21/21 Range/Units 13:44 13:44 13:44 WBC 5.0 (4.8-10.8) X10*3/uL RBC 4.72 (4.20-5.50) X10*6/uL Hgb 12.8 (12.0-16.0) g/dl Hct 36.4 L (37.0-47.0) % MCV 77.1 L (80.0-98.0) fL MCH 27.1 (27.0-33.0) pg MCHC 35.2 H (31.0-35.0) g/dl RDW 13.2 (11.0-16.0) % Plt Count 240 (160-400) X10*3/uL MPV 11.3 (9.4-12.3) fL Immature Gran % (Auto) 0.2 (0.0-0.4) % Neut % (Auto) 55.2 (45-73) % Lymph % (Auto) 37.4 (20-40) % [place] % (Auto) 6.2 (2-11) % Eos % (Auto) 1.0 (0-4) % Baso % (Auto) 0.0 (0-2) % Lymph # (Auto) 1.9 (1.2-4.9) X10*3/uL [place] # (Auto) 0.3 (0.1-1.2) X10*3/uL Eos # (Auto) 0.1 (0.0-0.4) X10*3/uL Baso # (Auto) 0.0 (0.0-0.2) X10*3/uL Abs Immat Gran (auto) 0.01 (0.00-0.03) X10*3/uL Absolute Neuts (auto) 2.7 (2.0-8.3) x10*3/uL Absolute Nucleated RBC 0.000 (0.0-0.012) X10*3/uL Nucleated RBC % (auto) 0.0 (0.0-0.2) /100WBC Sodium 139 (135-145) mmol/L Potassium 4.2 (3.3-5.1) mmol/L Chloride 108 (96-108) mmol/L Carbon Dioxide 25 (22-29) mmol/L Anion Gap 10 L (12-20) BUN 7 L (9-16) mg/dL Creatinine 0.71 (0.5-1.4) mg/dL Estim Creat Clear Calc 98.4 Estimated GFR > 60 Random Glucose 85 (60-115) mg/dL Calcium 9.3 (8.4-10.2) mg/dL Total Bilirubin 1.3 H (0.0-1.0) mg/dL AST 12 (5-31) U/L ALT 12 (0-31) U/L Alkaline Phosphatase 42 (39-117) U/L Troponin I High Sens (<3.5-17.0) ng/L Total Protein 7.5 (6.5-8.0) g/dL Albumin 4.5 (3.5-5.0) g/dL Beta HCG, Quant < 2 mIU/mL Urine Color Urine Appearance Urine pH (5.0-8.0) Ur Specific [place] (1.005-1.025) Urine Protein (NEG-TRACE) MG/DL Urine Glucose (UA) (NEG) MG/DL Urine Ketones (NEG) MG/DL Urine Blood (NEG) Urine Nitrite (NEG) Ur Leukocyte Esterase (NEG) Urine RBC (0) /HPF Urine WBC (0-4) /HPF Ur Squamous Epith Cells /LPF Urine Bacteria /LPF COVID-19 (CARIDAD) Negative (Negative) COVID-19 Clin Com See Note 12/21/21 12/21/21 Range/Units 13:44 15:24 WBC (4.8-10.8) X10*3/uL RBC (4.20-5.50) X10*6/uL Hgb (12.0-16.0) g/dl Hct (37.0-47.0) % MCV (80.0-98.0) fL MCH (27.0-33.0) pg MCHC (31.0-35.0) g/dl RDW (11.0-16.0) % Plt Count (160-400) X10*3/uL MPV (9.4-12.3) fL Immature Gran % (Auto) (0.0-0.4) % Neut % (Auto) (45-73) % Lymph % (Auto) (20-40) % [place] % (Auto) (2-11) % Eos % (Auto) (0-4) % Baso % (Auto) (0-2) % Lymph # (Auto) (1.2-4.9) X10*3/uL [place] # (Auto) (0.1-1.2) X10*3/uL Eos # (Auto) (0.0-0.4) X10*3/uL Baso # (Auto) (0.0-0.2) X10*3/uL Abs Immat Gran (auto) (0.00-0.03) X10*3/uL Absolute Neuts (auto) (2.0-8.3) x10*3/uL Absolute Nucleated RBC (0.0-0.012) X10*3/uL Nucleated RBC % (auto) (0.0-0.2) /100WBC Sodium (135-145) mmol/L Potassium (3.3-5.1) mmol/L Chloride (96-108) mmol/L Carbon Dioxide (22-29) mmol/L Anion Gap (12-20) BUN (9-16) mg/dL Creatinine (0.5-1.4) mg/dL Estim Creat Clear Calc Estimated GFR Random Glucose (60-115) mg/dL Calcium (8.4-10.2) mg/dL Total Bilirubin (0.0-1.0) mg/dL AST (5-31) U/L ALT (0-31) U/L Alkaline Phosphatase (39-117) U/L Troponin I High Sens < 3.5 (<3.5-17.0) ng/L Total Protein (6.5-8.0) g/dL Albumin (3.5-5.0) g/dL Beta HCG, Quant mIU/mL Urine Color YELLOW Urine Appearance CLEAR Urine pH 7.0 (5.0-8.0) Ur Specific [place] 1.010 (1.005-1.025) Urine Protein NEG (NEG-TRACE) MG/DL Urine Glucose (UA) NEG (NEG) MG/DL Urine Ketones NEG (NEG) MG/DL Urine Blood 2+ H (NEG) Urine Nitrite NEG (NEG) Ur Leukocyte Esterase NEG (NEG) Urine RBC 10-14 H (0) /HPF Urine WBC 0 (0-4) /HPF Ur Squamous Epith Cells 3+ /LPF Urine Bacteria 1+ /LPF COVID-19 (CARIDAD) (Negative) COVID-19 Clin Com Imaging Data CT scan - head: Radiologist's impression: CT/CT head/brain wo con IMPRESSION: Normal noncontrast CT imaging examination of the head. No evidence of mass, hemorrhage or cerebral infarction. ECG Data Attestation: I personally reviewed and interpreted this ECG as follows: ECG interpretation date: 12/21/21 Interpretation: Rate: 63 Rhythm:? Normal sinus rhythm [place]:? Normal Normal P waves.? Normal SIMA.?? Normal QRS complex.?? ST T wave :??No ST elevation, no ST depression, no T-wave inversion qTC: 435 prior studies:? June 2021 The study has been interpreted contemporaneously by me. Discharge Plan Discharge Clinical Impression: Headache, Seizure Patient Disposition: Home, Self-Care Instructions: Acute Headache (ED) Additional Instructions: As we discussed your blood work was overall normal today. You had a CT scan of your head which was normal. At the time that you left the emergency department your headache had resolved. Please continue taking all of your medications as prescribed. Consider following up with your neurologist regarding your headaches, and possible abortive medications for when you develop a headache, as you advised me that you are currenty only taking preventative medications. You may return to the emergency department with any new worsening symptoms or concerns. Jarret comentamos, burnette an?lisis de zachary fue normal en general hoy. Le hicieron valdez tomograf?a computarizada de la ronnie que fue normal. En el momento en que sali? del departamento de emergencias, burnette dolor de ronnie se hab?a resuelto. Contin?e tomando todos merry medicamentos seg?n lo prescrito. Considere hacer un seguimiento con burnette neur?logo con respecto a merry charlene de ronnie y posibles medicamentos abortivos para cuando desarrolle un dolor de ronnie, ya que me inform? que actualmente solo est? tomando medicamentos preventivos. Puede regresar al departamento de emergencias con cualquier nuevo s?ntoma o inquietud que empeore. Prescriptions: No Action Ergomar 2 mg Tablet, Sublingual 2 mg sublingual Q30M PRN (Reason: Headache) Rx Instructions: do not exceed 6 mg per day or 10 mg per wk levetiracetam [Keppra] 1,000 mg Tablet 1,000 mg PO Q12H ferrous gluconate 324 mg (38 mg iron) Tablet 324 mg PO USEASDIRECTD Rx Instructions: Take Saturday, Saturday and Saturday with Vit C containing juice. Slynd 4 mg (28) tablet 1 tab PO DAILY topiramate 25 mg Tablet 25 mg PO BID Interventions: ED Discharge Assessment Last Done: 12/21/21 17:00 Discharge Date/Time: 12/21/21 17:00 Print Language: Georgian
[2021-12-21 13:52] LABS: Eosinophils Absolute Auto 0.1 X10*3/uL (0.0-0.4); Hematocrit 36.4 % (37.0-47.0); Hemoglobin 12.8 g/dl (12.0-16.0); Imm Gran Abs Auto 0.01 X10*3/uL (0.00-0.03); Imm Gran Pct Auto 0.2 % (0.0-0.4); Lymphocytes Absolute Auto 1.9 X10*3/uL (1.2-4.9); Lymphocytes Percent Auto 37.4 % (20-40); Mean Corpuscular HGB Conc 35.2 g/dl (31.0-35.0); Mean Corpuscular Hemoglobin 27.1 pg (27.0-33.0); Mean Corpuscular Volume 77.1 fL (80.0-98.0); Mean Platelet Volume 11.3 fL (9.4-12.3); Monocytes Absolute Auto 0.3 X10*3/uL (0.1-1.2); Monocytes Percent Auto 6.2 % (2-11); Neutrophils Absolute Auto 2.7 x10*3/uL (2.0-8.3); Neutrophils Percent Auto 55.2 % (45-73); Platelet Count 240 X10*3/uL (160-400); Red Blood Count 4.72 X10*6/uL (4.20-5.50); Red Cell Distribution Width 13.2 % (11.0-16.0)
[2021-12-21] MEDS: 0.9 % Sodium Chloride 1,000 ML 999 ML IV (13:55)
[2021-12-21] MEDS: Ketorolac Tromethamine 30 MG/ML VIAL IVPUSH (13:55)
[2021-12-21] MEDS: Metoclopramide HCl 10 MG/2 ML VIAL IVPUSH (13:55)
[2021-12-21 13:57] VITALS: BP 109/65; PULSE 55; RESP 16; O2SAT 100
[2021-12-21 14:05] LABS: COVID-19 Test Negative (Negative)
[2021-12-21 14:08] LABS: Alanine Aminotransferase 12 U/L (0-31); Albumin Level 4.5 g/dL (3.5-5.0); Alkaline Phosphatase 42 U/L (39-117); Anion Gap 10 (12-20); Aspartate Amino Transferase 12 U/L (5-31); Bilirubin Total 1.3 mg/dL (0.0-1.0); Blood Urea Nitrogen 7 mg/dL (9-16); Calcium 9.3 mg/dL (8.4-10.2); Carbon Dioxide 25 mmol/L (22-29); Chloride 108 mmol/L (96-108); Creatinine Clr Calc Pharmacy 98.4; Estimated Glomerular Filt Rate > 60; Glucose Random 85 mg/dL (60-115); Potassium 4.2 mmol/L (3.3-5.1); Sodium 139 mmol/L (135-145); Total Protein 7.5 g/dL (6.5-8.0)
[2021-12-21 14:14] LABS: HCG Quantitative < 2 mIU/mL; Troponin-I High Sensitivity < 3.5 ng/L (<3.5-17.0)
[2021-12-21 14:37] VITALS: TEMP 36.7
[2021-12-21 15:25] VITALS: BP 101/39; PULSE 60; RESP 14; O2SAT 100
[2021-12-21 15:37] LABS: Appearance Urine CLEAR; Color Urine YELLOW; Glucose Urine UA NEG (NEG); Leukocyte Esterase Urine NEG (NEG); Nitrite Urine NEG (NEG); UACC Culture Trigger NO; Urine Blood 2+ (NEG); Urine Ketones NEG (NEG); Urine Protein NEG (NEG-TRACE)
[2021-12-21 15:44] LABS: Squamous Epithelial Cell Urine 3+ /LPF; WBC Urine 0 /HPF (0-4)
[2021-12-21 15:45] LABS: Bacteria Urine 1+ /LPF
== END 2021-12-21 17:00 | disposition home or self-care (01) ==
PROVIDERS: Nurse Practitioner Family; Emergency Provider Emergency Medicine Emergency Medical Services
DX: R56.9 Unspecified convulsions (principal); R51.9 Headache, unspecified; Z20.822 Contact with and (suspected) exposure to COVID-19; Z79.899 Other long term (current) drug therapy
CPT/HCPCS: 36415; 70450; 80053; 81001; 84484; 84702; 85025; 87635; 93005; 96361; 96374; 96375; 99284; 99285; J1885; J2765

== ENCOUNTER 2023-05-19 05:39 | Inpatient (IN) | payer MEDICAID, OTHER, SELFPAY ==
[2023-05-19] VITALS (15 sets, daily range): BP systolic 103–124; BP diastolic 56–85; PULSE 59–152; RESP 12–18; TEMP 36.4–37.2; O2SAT 97–100; BMI 22.6
--- NOTE | 2023-05-19 | ECG_ITS ---
Test Reason : SYNCOPE Blood Pressure : / mmHG Vent. Rate : 101 BPM Atrial Rate : 101 BPM P-R Int : 132 ms QRS Dur : 086 ms QT Int : 368 ms P-R-T Axes : 066 037 075 degrees QTc Int : 477 ms Sinus tachycardia with frequent Premature ventricular complexes Nonspecific T wave abnormality Abnormal ECG When compared with ECG of 21-DEC-2021 13:16, Premature ventricular complexes are now Present Vent. rate has increased BY 38 BPM Nonspecific T wave abnormality now evident in Lateral leads Referred By: Generic ED Physician Electronically Signed By:Fab Waldrop
--- NOTE | ~2023-05-19 | XR_ITS ---
EXAMINATION: XR CHEST CLINICAL INFORMATION: Syncope COMPARISON: 06/07/2021 TECHNIQUE: Frontal view of the chest was obtained. FINDINGS: No significant abnormality is noted involving the heart, lungs, mediastinum, bony thorax or soft tissues. XR/XR chest 1V IMPRESSION: Unremarkable examination.
--- NOTE | ~2023-05-19 | CT_ITS ---
EXAMINATION: CT HEAD WITHOUT CONTRAST CLINICAL INFORMATION: Severe headache COMPARISON: None available. TECHNIQUE: Contiguous axial imaging was performed from the skull base to vertex without intravenous administration of contrast. This CT examination was performed using dose optimization techniques as appropriate, variously including the following: *Automated exposure control *Adjustment of mA and/or kV according to patient size (this includes techniques or standardized protocols for targeted exams where dose is matched to indication/reason for exam; i.e. extremities or head) *Use of iterative reconstruction technique DLP: 552 mGy-cm FINDINGS: There is no acute intra-axial, extra-axial bleed, masses or midline shift. There is no acute infarction evolution. There is no edema. The russell to white matter difference is maintained normal. The lateral ventricles are symmetrical in size and configuration without enlargement. Bone windows reveal no calvarial abnormality. Bilateral paranasal sinuses and mastoid air cells are well aerated. There is no scalp soft tissue abnormality. CT/CT head/brain wo IV con IMPRESSION: No acute intracranial process seen.
--- NOTE | 2023-05-19 05:59 | MHC.EDTECH ---
Patient was changed into hospital attire and placed on the gambling monitor, EKG was taken per order,and signed by provider, vitals were taken and call landeros within reach of patient
[2023-05-19 06:01] LABS: MANUAL DIFF FLAG NO
[2023-05-19 06:03] LABS: Basophils Percent Auto 0.3 % (0-2); Eosinophils Absolute Auto 0.2 X10*3/uL (0.0-0.4); Eosinophils Percent Auto 2.4 % (0-4); Hematocrit 39.6 % (37.0-47.0); Hemoglobin 14.3 g/dl (12.0-16.0); Imm Gran Abs Auto 0.03 X10*3/uL (0.00-0.03); Imm Gran Pct Auto 0.3 % (0.0-0.4); Lymphocytes Absolute Auto 4.4 X10*3/uL (1.2-4.9); Lymphocytes Percent Auto 51.2 % (20-40); Mean Corpuscular HGB Conc 36.1 g/dl (31.0-35.0); Mean Corpuscular Hemoglobin 27.6 pg (27.0-33.0); Mean Corpuscular Volume 76.3 fL (80.0-98.0); Monocytes Absolute Auto 0.6 X10*3/uL (0.1-1.2); Monocytes Percent Auto 6.4 % (2-11); Neutrophils Absolute Auto 3.4 x10*3/uL (2.0-8.3); Neutrophils Percent Auto 39.4 % (45-73); Platelet Count 283 X10*3/uL (160-400); Red Blood Count 5.19 X10*6/uL (4.20-5.50); Red Cell Distribution Width 12.6 % (11.0-16.0); White Blood Count 8.7 X10*3/uL (4.8-10.8)
[2023-05-19 06:09] LABS: Prothrombin Time 12.4 SEC (11.1-13.3)
[2023-05-19 06:12] LABS: Partial Thromboplastin Time 32.6 SEC (26.0-36.4)
[2023-05-19 06:32] LABS: Alanine Aminotransferase 11 U/L (0-31); Albumin Level 4.6 g/dL (3.5-5.0); Alkaline Phosphatase 45 U/L (39-117); Anion Gap 13 (12-20); Aspartate Amino Transferase 15 U/L (5-31); Bilirubin Total 0.7 mg/dL (0.0-1.0); Blood Urea Nitrogen 17 mg/dL (9-16); Calcium 9.3 mg/dL (8.4-10.2); Carbon Dioxide 17 mmol/L (22-29); Chloride 114 mmol/L (96-108); Creatinine Clr Calc Pharmacy 77.9; Estimated Glomerular Filt Rate > 60; Ethanol < 10 mg/dL; Glucose Random 88 mg/dL (60-115); HCG Quantitative < 2 mIU/mL; Magnesium 2.2 mg/dL (1.6-2.6); Potassium 3.7 mmol/L (3.3-5.1); Sodium 140 mmol/L (135-145); Total Protein 8.2 g/dL (6.5-8.0); Troponin-I High Sensitivity < 2.7 ng/L (<3.5-17.0)
[2023-05-19 06:42] LABS: Glucose, Whole Blood 85 mg/dL (60-115)
[2023-05-19 06:44] LABS: Valproate < 12.5 mcg/mL (50.0-100.0)
--- NOTE | 2023-05-19 06:45 | MHC.EDTECH ---
Patient lactic acid drawn and sent to lab .
[2023-05-19 06:58] LABS: D Dimer High Sensitivity < 150 NG/ML
[2023-05-19 06:58] LABS: Lactic Acid 0.8 mmol/L (0.5-2.0)
--- NOTE | 2023-05-19 07:06 | ED_ITS ---
HPI - Dizziness General Chief Complaint: Syncope Stated Complaint: Syncope Time Seen by Provider: 05/19/23 06:31 Source: patient and family Mode of arrival: ambulatory Limitations: no limitations History of Present Illness HPI Narrative: This is a 27-year-old female with no significant medical history presenting to the emergency department for evaluation of dizziness with positional changes, severe headache, and an episode of seizure versus syncope. She reports that the dizziness with positional changes has been present since May 06 and the severe headache has been present for the past 2 days. She reports every time she stands up she feels like she is going to pass out. She reports that she was recently in [facility] in the ICU for convulsions and hypertension. Denies chest pain, shortness of breath, nausea, vomiting, abdominal pain, headache, vision changes, dizziness, weakness. Related Data Home Medications Medication Instructions Recorded Confirmed drospirenone (contraceptive) 4 mg 1 tab PO DAILY 07/05/21 10/05/21 (28) tablet (Slynd) ergotamine tartrate 2 mg 2 mg sublingual Q30M PRN Headache 07/05/21 10/05/21 sublingual tablet (Ergomar) ferrous gluconate 324 mg (38 mg 324 mg PO USEASDIRECTD 07/05/21 10/05/21 iron) tablet levetiracetam 1,000 mg tablet 1,000 mg PO Q12H 07/05/21 10/05/21 (Keppra) topiramate 25 mg tablet 25 mg PO BID 10/05/21 10/05/21 Allergies Allergy/AdvReac Type Severity Reaction Status Date / Time No Known Allergies Allergy Verified 12/21/21 13:03 Review of Systems 2 Review of Systems: Constitutional : No Weight loss, No Fever, No Chills, No Fatigue, No Malaise ENT/Mouth : No sore throat, No Rhinorrhea Eyes: No Eye Pain, No Swelling, No Redness Cardiovascular : No Chest Pain, No SOB, No Dyspnea on Exertion, No Orthopnea, No Edema, No Palpitations Respiratory : No Cough, No Sputum, No Wheezing Gastrointestinal : No Nausea, No Vomiting, No Diarrhea, No Constipation, No abdominal Pain, No Hematochezia, No Melena Genitourinary : No Dysuria, No Urinary Frequency, No Hematuria, Musculoskeletal : No joint pain, No Myalgias, No Joint Swelling Skin : No Skin Lesions, No rash Neuro : No Weakness, No Numbness, + Dizziness, No Headache Psych : No Anxiety/Panic, No Depression All other systems reviewed and are negative Yes all other systems are reviewed and are negative [facility] Past Medical History Attestation statement: The following information was validated with the patient. Source: old records reviewed and nursing notes reviewed Medical History delivery delivered Chronic headaches Heavy menstrual bleeding LIANA (iron deficiency anemia) Seizures Surgical History History of delivery Family History Family History Brother Diabetes mellitus, type 2 Father Diabetes mellitus type 2, controlled Paternal Grandmother Breast cancer Social History Social History Household Members: Children Housing: House Are you a primary career advisor to a significant other at home: No Do you presently have visiting nurse or other home services: No Alcohol intake: never Patient Tobacco Use Status: Never used Tobacco Advance Directives: No Advance Directives Information Provided: No service: No Current occupational status: unemployed Physical Exam 2 Vital Signs: Vital Signs: Last Vital Signs Temp 98.6 F 05/19/23 08:08 Pulse 135 H 05/19/23 10:23 Resp 12 05/19/23 08:08 BP 116/65 05/19/23 10:22 Pulse Ox 100 05/19/23 08:08 O2 Del Method Room Air 05/19/23 08:08 BMI result Body Mass Index 22.6 vss Appearance: Alert.? Oriented X3.? No acute distress.? Head: Normocephalic, atraumatic, no step-offs or deformities Eyes: Pupils equal, round and reactive to light.? Neck: Normal inspection.? Neck supple.? CVS: Normal heart rate and rhythm.? Pulses normal.? Respiratory: No respiratory distress.? Breath sounds normal.? Abdomen: Soft and nontender.? Skin: Skin warm and dry.? Normal skin color.? Normal skin turgor.? Extremities: No lower extremity edema.? No calf ttp. 5/5 strength to bilateral upper and lower extremities Neuro: Oriented X 3.? No motor deficit.? No sensory deficit. CN 2-12 intact . Normal [id number] negative Romberg and pronator drift. 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 NIH stroke scale 0 Course Reevaluation(s) Reevaluation #1: CBC with no acute finding. Chemistry unremarkable. Troponin negative, EKG nonischemic unlikely ACS. Lactic acid and CPK normal unlikely seizure. Coags normal. D-dimer negative unlikely pulmonary embolism. Patient had orthostatic vital signs done, no drop in blood pressure however when patient stands up she gets significant palpitations and some chest pain. Valproic acid level low. Concerns that patient may be is not taking medication. Time: 08:28 Reevaluation #2: CT head no acute intracranial process seen . Chest x-ray unremarkable. UA negative. Repeat orthostatics done patient continues to have significant tachycardia heart rate 130s 140s. P feels dizzy and like she is going to pass out. Plan is hospital admission I did request records from [facility] pending. Time: 11:22 Medications Administered Generic Name Dose Route Start Last Admin Trade Name Freq PRN Reason Stop Dose Admin Sodium Chloride 1,000 mls @ 999 mls/hr 05/19/23 10:30 05/19/23 10:48 Ns IV 05/19/23 11:30 999 mls/hr .Q1H1M LUCRETIA Administration Discontinued Medications Generic Name Dose Route Start Last Admin Trade Name Freq PRN Reason Stop Dose Admin Sodium Chloride 1,000 mls @ 999 mls/hr 05/19/23 07:15 05/19/23 09:09 Ns IV 05/19/23 08:15 Infused .Q1H1M LUCRETIA Infusion Sodium Chloride 1,000 mls @ 999 mls/hr 05/19/23 09:15 05/19/23 10:48 Ns IV 05/19/23 10:15 Infused .Q1H1M LUCRETIA Infusion Ketorolac Tromethamine 30 mg 05/19/23 07:06 05/19/23 07:16 Ketorolac Tromethamine 15 Mg/Ml Vial IVPUSH 05/19/23 07:07 30 mg ONCE ONE Administration Lorazepam 1 mg 05/19/23 07:09 05/19/23 07:16 Lorazepam 2 Mg/Ml Vial IVPUSH 05/19/23 07:10 1 mg STAT STA Administration Medical Decision Making Medical Decision Making [facility] Narrative: 0710 27-year-old female presents for evaluation of dizziness with positional changes since May 06 and headache for the past 2 days. Recently hospitalized at [facility] for convulsions and hypertension. Physical examination benign. Neurological assessment unremarkable. NIH stroke scale of 0 History and physical exam concerning for possible orthostatic hypotension versus electrolyte derangement versus anemia versus POTS . Unlikely intracranial hemorrhage, stroke, posterior stroke. Other differentials include MS Plan at this time will obtain labs, orthostatic vital signs, CT head, drug screen, UA, hCG. Will continue to monitor placed on seizure precautions will give IV Ativan to increased seizure threshold. Differential Diagnosis Differential Diagnoses: The differential diagnosis associated with the presentation includes History and physical exam concerning for possible orthostatic hypotension versus electrolyte derangement versus anemia versus POTs . Unlikely intracranial hemorrhage, stroke, posterior stroke. Other differentials include MS Admission/Observation Consideration of admission/observation: Escalation of care including admission/observation considered likely Lab Data 05/19/23 05:56 05/19/23 05:56 Labs: Lab Results 05/19/23 05/19/23 05/19/23 Range/Units 05:48 05:56 06:12 WBC 8.7 (4.8-10.8) X10*3/uL RBC 5.19 (4.20-5.50) X10*6/uL Hgb 14.3 (12.0-16.0) g/dl Hct 39.6 (37.0-47.0) % MCV 76.3 L (80.0-98.0) fL MCH 27.6 (27.0-33.0) pg MCHC 36.1 H (31.0-35.0) g/dl RDW 12.6 (11.0-16.0) % Plt Count 283 (160-400) X10*3/uL MPV 12.0 (9.4-12.3) fL Immature Gran % (Auto) 0.3 (0.0-0.4) % Neut % (Auto) 39.4 L (45-73) % Lymph % (Auto) 51.2 H (20-40) % [place] % (Auto) 6.4 (2-11) % Eos % (Auto) 2.4 (0-4) % Baso % (Auto) 0.3 (0-2) % Lymph # (Auto) 4.4 (1.2-4.9) X10*3/uL [place] # (Auto) 0.6 (0.1-1.2) X10*3/uL Eos # (Auto) 0.2 (0.0-0.4) X10*3/uL Baso # (Auto) 0.0 (0.0-0.2) X10*3/uL Abs Immat Gran (auto) 0.03 (0.00-0.03) X10*3/uL Absolute Neuts (auto) 3.4 (2.0-8.3) x10*3/uL Absolute Nucleated RBC 0.000 (0.0-0.012) X10*3/uL Nucleated RBC % (auto) 0.0 (0.0-0.2) /100WBC PT 12.4 (11.1-13.3) SEC INR 1.0 (0.9-1.1) APTT 32.6 (26.0-36.4) SEC D-Dimer High Sensitivty < 150 NG/ML Sodium 140 (135-145) mmol/L Potassium 3.7 (3.3-5.1) mmol/L Chloride 114 H (96-108) mmol/L Carbon Dioxide 17 L (22-29) mmol/L Anion Gap 13 (12-20) BUN 17 H (9-16) mg/dL Creatinine 0.85 (0.5-1.4) mg/dL Estim Creat Clear Calc 77.9 Estimated GFR > 60 POC Glucose 85 (60-115) mg/dL Random Glucose 88 (60-115) mg/dL Lactic Acid (0.5-2.0) mmol/L Calcium 9.3 (8.4-10.2) mg/dL Magnesium 2.2 (1.6-2.6) mg/dL Total Bilirubin 0.7 (0.0-1.0) mg/dL AST 15 (5-31) U/L ALT 11 (0-31) U/L Alkaline Phosphatase 45 (39-117) U/L Total Creatine Kinase 45 (26-140) U/L Troponin I High Sens < 2.7 (<3.5-17.0) ng/L Total Protein 8.2 H (6.5-8.0) g/dL Albumin 4.6 (3.5-5.0) g/dL Beta HCG, Quant < 2 mIU/mL Urine Color Urine Appearance Urine pH (5.0-9.0) Ur Specific [place] (1.005-1.025) Urine Protein (Neg-Trace) mg/dL Urine Glucose (UA) (Negative) mg/dL Urine Ketones (Negative) mg/dL Urine Blood (Negative) Urine Nitrite (Negative) Ur Leukocyte Esterase (Negative) Urine RBC (0-2) /HPF Urine WBC (0-5) /HPF Ur Squamous Epith Cells (0-2) /HPF Urine Bacteria (None Seen) Hyaline Casts (0-2) /LPF Urine Opiates Screen (Not Detect) Urine Fentanyl Screen (Not Detect) Ur Barbiturates Screen (Not Detect) Valproic Acid < 12.5 L (50.0-100.0) mcg/mL Ur Phencyclidine Scrn (Not Detect) Ur Amphetamines Screen (Not Detect) U Benzodiazepines Scrn (Not Detect) Urine Cocaine Screen (Not Detect) U Marijuana (THC) Screen (Not Detect) Ethyl Alcohol < 10 mg/dL 05/19/23 05/19/23 Range/Units 06:44 10:45 WBC (4.8-10.8) X10*3/uL RBC (4.20-5.50) X10*6/uL Hgb (12.0-16.0) g/dl Hct (37.0-47.0) % MCV (80.0-98.0) fL MCH (27.0-33.0) pg MCHC (31.0-35.0) g/dl RDW (11.0-16.0) % Plt Count (160-400) X10*3/uL MPV (9.4-12.3) fL Immature Gran % (Auto) (0.0-0.4) % Neut % (Auto) (45-73) % Lymph % (Auto) (20-40) % [place] % (Auto) (2-11) % Eos % (Auto) (0-4) % Baso % (Auto) (0-2) % Lymph # (Auto) (1.2-4.9) X10*3/uL [place] # (Auto) (0.1-1.2) X10*3/uL Eos # (Auto) (0.0-0.4) X10*3/uL Baso # (Auto) (0.0-0.2) X10*3/uL Abs Immat Gran (auto) (0.00-0.03) X10*3/uL Absolute Neuts (auto) (2.0-8.3) x10*3/uL Absolute Nucleated RBC (0.0-0.012) X10*3/uL Nucleated RBC % (auto) (0.0-0.2) /100WBC PT (11.1-13.3) SEC INR (0.9-1.1) APTT (26.0-36.4) SEC D-Dimer High Sensitivty NG/ML Sodium (135-145) mmol/L Potassium (3.3-5.1) mmol/L Chloride (96-108) mmol/L Carbon Dioxide (22-29) mmol/L Anion Gap (12-20) BUN (9-16) mg/dL Creatinine (0.5-1.4) mg/dL Estim Creat Clear Calc Estimated GFR POC Glucose (60-115) mg/dL Random Glucose (60-115) mg/dL Lactic Acid 0.8 (0.5-2.0) mmol/L Calcium (8.4-10.2) mg/dL Magnesium (1.6-2.6) mg/dL Total Bilirubin (0.0-1.0) mg/dL AST (5-31) U/L ALT (0-31) U/L Alkaline Phosphatase (39-117) U/L Total Creatine Kinase (26-140) U/L Troponin I High Sens (<3.5-17.0) ng/L Total Protein (6.5-8.0) g/dL Albumin (3.5-5.0) g/dL Beta HCG, Quant mIU/mL Urine Color Yellow Urine Appearance Clear Urine pH 5.5 (5.0-9.0) Ur Specific [place] >= 1.030 H (1.005-1.025) Urine Protein Negative (Neg-Trace) mg/dL Urine Glucose (UA) Negative (Negative) mg/dL Urine Ketones Trace (Negative) mg/dL Urine Blood Negative (Negative) Urine Nitrite Negative (Negative) Ur Leukocyte Esterase Negative (Negative) Urine RBC 3-5 H (0-2) /HPF Urine WBC 0-5 (0-5) /HPF Ur Squamous Epith Cells 3-5 (0-2) /HPF Urine Bacteria None Seen (None Seen) Hyaline Casts 0-2 (0-2) /LPF Urine Opiates Screen Not Detected (Not Detect) Urine Fentanyl Screen Not Detected (Not Detect) Ur Barbiturates Screen Not Detected (Not Detect) Valproic Acid (50.0-100.0) mcg/mL Ur Phencyclidine Scrn Not Detected (Not Detect) Ur Amphetamines Screen Not Detected (Not Detect) U Benzodiazepines Scrn Not Detected (Not Detect) Urine Cocaine Screen Not Detected (Not Detect) U Marijuana (THC) Screen Not Detected (Not Detect) Ethyl Alcohol mg/dL Critical Care Time Critical Care Time Critical Care Time: No Discharge Plan Discharge Clinical Impression: POTS (postural orthostatic tachycardia syndrome), Near syncope Patient Disposition: Still a Patient Prescriptions: No Action Ergomar 2 mg Tablet, Sublingual 2 mg sublingual Q30M PRN (Reason: Headache) Rx Instructions: do not exceed 6 mg per day or 10 mg per wk levetiracetam [Keppra] 1,000 mg Tablet 1,000 mg PO Q12H ferrous gluconate 324 mg (38 mg iron) Tablet 324 mg PO USEASDIRECTD Rx Instructions: Take Saturday, Saturday and Saturday with Vit C containing juice. Slynd 4 mg (28) tablet 1 tab PO DAILY topiramate 25 mg Tablet 25 mg PO BID
--- NOTE | 2023-05-19 07:07 | PC.NURSE ---
Alert and oriented, sins tacy on monitor, denies pain, family at bedside
[2023-05-19] MEDS: LORazepam 2 MG/ML VIAL 1 MG IVPUSH (07:16)
[2023-05-19] MEDS: Ketorolac Tromethamine 15 MG/ML VIAL 30 MG IVPUSH (07:16)
[2023-05-19] MEDS: 0.9 % Sodium Chloride 1,000 ML 999 ML IV ×3 (07:16→10:48)
--- NOTE | 2023-05-19 09:59 | PC.NURSE ---
pt resting, no reports of pain. NSR on monitor. second liter of fluids infusing. seizure precautions in place. plan of care ongoing.
--- NOTE | 2023-05-19 10:28 | PC.NURSE ---
during standing ortho's pt got very dizzy and shaky and was unable to stand on their own, HR also jumped first to 150 and then came down to 135. BP measurement not complete during standing.
[2023-05-19 10:54] LABS: Appearance Urine Clear; Color Urine Yellow; Glucose Urine UA Negative (Negative); Leukocyte Esterase Urine Negative (Negative); Nitrite Urine Negative (Negative); PH 5.5 (5.0-9.0); Specific Gravity - Urine >= 1.030 (1.005-1.025); Urine Blood Negative (Negative); Urine Ketones Trace mg/dL (Negative); Urine Protein Negative (Neg-Trace)
[2023-05-19 10:57] LABS: Bacteria Urine None Seen (None Seen); Hyaline Casts Urine 0-2 /LPF (0-2); WBC Urine 0-5 /HPF (0-5)
[2023-05-19 11:01] LABS: Amphetamine Screen Urine Not Detected (Not Detect); Barbiturates, Urine Not Detected (Not Detect); Benzodiazepines Screen Urine Not Detected (Not Detect); Cannabinoid Screen Urine Not Detected (Not Detect); Cocaine Screen Urine Not Detected (Not Detect); Fentanyl, urine Not Detected (Not Detect); Opiate Screen Urine Not Detected (Not Detect); Phencyclidine Screen Urine Not Detected (Not Detect)
--- NOTE | 2023-05-19 11:30 | P.HPHOSP_ITS ---
History of Present Illness Date of Service: 05/19/23 Attending physician on admission: Anoop Junior Chief Complaint: Lightheadedness, dizziness with standing Pt is a 27-year-old Citizen [place]-speaking female with a PMH significant for?microcytic anemia, menorrhagia, and seizure disorder who presents to the ED with?lightheadedness, dizziness, tachycardia with standing. Patient states that symptoms began on 05/06/2023 when patient was in [place] on vacation visiting family. Patient presented to [facility] and apparently was admitted into the ICU for 3 days and then downgraded to the regular hospital floor for an additional day. Patient is not the best of historians and it is not entirely clear what she was treated or diagnosed with or if her symptoms then were different than what brought her in today. Records of patient's visit have been requested from the hospital but yet to be received. Pt presents today after worsening lightheadedness, dizziness, and palpitations when she stands, inability to tolerate standing or walking, and having a severe headache for the past 2 days. Also complains of tingling in her cheeks, and tingling and pain in both thighs. Denies chest pain/pressure. No shortness of breath. Denies fever, chills, nausea, vomiting, abdominal pain. In the ED initial orthostatics were unable to be completed with standing as patient became shaky and could not stand on her own. Heart rate jumped from 97 supine to 152 with standing. Repeat orthostatics were negative for hypotension, but again demonstrated heart rate elevation from 94 supine to 143 with standing. Labs were significant for slightly increased creatinine of 0.85 (up from 0.71 on 12/21/2021), otherwise largely unremarkable with no electrolyte imbalances. No leukocytosis. H&H stable and WNL at 14.3/39.6. CXR showed no acute cardiopulmonary process. CT?of head showed no acute intracranial process seen. EKG demonstrated sinus tachycardia of 101 with frequent PVCs and nonspecific T- wave abnormality, but no evidence of significant ST elevations or depressions. Pt was treated with ketorolac, IVF, and lorazepam. Pt will be admitted to the hospital under observation for treatment and further evaluation of possible POTS. Review of Systems 2 Review of Systems: Lightheadedness, dizziness, palpitations with standing Headache x2 days Numbness and tingling and cheeks Numbness, tingling, pain in thighs Denies fever, chills, nausea, vomiting, abdominal pain No shortness of breath PMFSH Medical History (Updated 05/19/23 @ 13:08 by BIN Moreno) Seizure disorder delivery delivered Chronic headaches Heavy menstrual bleeding LIANA (iron deficiency anemia) Seizures Family History Brother Diabetes mellitus, type 2 Father Diabetes mellitus type 2, controlled Paternal Grandmother Breast cancer Surgical History History of delivery Social History Household Members: Children Housing: House Are you a primary home care companion to a significant other at home: No Do you presently have visiting nurse or other home services: No Alcohol intake: never Patient Tobacco Use Status: Never used Tobacco Advance Directives: No Advance Directives Information Provided: No service: No Current occupational status: unemployed Meds Allergies Allergy/AdvReac Type Severity Reaction Status Date / Time No Known Allergies Allergy Verified 12/21/21 13:03 Home Medications Medication Instructions Recorded Confirmed Last Taken Type drospirenone (contraceptive) 4 mg 1 tab PO DAILY 07/05/21 10/05/21 Unknown History (28) tablet (Slynd) ergotamine tartrate 2 mg 2 mg sublingual Q30M PRN Headache 07/05/21 10/05/21 Unknown History sublingual tablet (Ergomar) ferrous gluconate 324 mg (38 mg 324 mg PO USEASDIRECTD 07/05/21 10/05/21 Unknown History iron) tablet levetiracetam 1,000 mg tablet 1,000 mg PO Q12H 07/05/21 10/05/21 Unknown History (Keppra) topiramate 25 mg tablet 25 mg PO BID 10/05/21 10/05/21 Unknown History Physical Exam 2 Vital Signs and Narrative: Vital Signs: Last Vital Signs Temp 98.6 F 05/19/23 08:08 Pulse 135 H 05/19/23 10:23 Resp 12 05/19/23 08:08 BP 116/65 05/19/23 10:22 Pulse Ox 100 05/19/23 08:08 O2 Del Method Room Air 05/19/23 08:08 BMI result Body Mass Index 22.6 Constitutional: Alert, in no acute distress. Mental Status: Oriented to person, place and time. Eyes: Pupils are equal, round, and reactive to light. Ear, Nose, and Throat: Oropharynx clear, mucous membranes moist. Ears and nose without deformities. Trachea midline. Respiratory: Clear to auscultation bilaterally. No wheezing, rales, or rhonchi. Cardiovascular: S1, S2 regular. No murmurs, rubs, or gallops. Gastrointestinal: Abdomen soft, non-tender, non-distended. Normal bowel sounds. Neurologic: Cranial nerves II-XII are grossly intact bilaterally. No focal neurological deficits. Moves all extremities spontaneously. Skin: Warm, dry. Musculoskeletal: No cyanosis or clubbing. Globalized weakness, 3/5 strength of upper and lower extremities bilaterally. Extremities: No edema. Psychiatric: Normal mood and affect. Results Labs 05/19/23 05:56 05/19/23 05:56 Labs: Laboratory Results - last 24 hr 05/19/23 05/19/23 05/19/23 05:48 05:56 06:12 MCV 76.3 L MCH 27.6 MCHC 36.1 H RDW 12.6 Plt Count 283 MPV 12.0 Immature Gran % (Auto) 0.3 Neut % (Auto) 39.4 L Lymph % (Auto) 51.2 H [place] % (Auto) 6.4 Eos % (Auto) 2.4 Baso % (Auto) 0.3 Lymph # (Auto) 4.4 [place] # (Auto) 0.6 Eos # (Auto) 0.2 Baso # (Auto) 0.0 Abs Immat Gran (auto) 0.03 Absolute Neuts (auto) 3.4 Absolute Nucleated RBC 0.000 Nucleated RBC % (auto) 0.0 PT 12.4 INR 1.0 APTT 32.6 D-Dimer High Sensitivty < 150 Anion Gap 13 Estim Creat Clear Calc 77.9 Estimated GFR > 60 POC Glucose 85 Random Glucose 88 Lactic Acid Calcium 9.3 Magnesium 2.2 Total Bilirubin 0.7 AST 15 ALT 11 Alkaline Phosphatase 45 Total Creatine Kinase 45 Total Protein 8.2 H Albumin 4.6 Beta HCG, Quant < 2 Urine Color Urine Appearance Urine pH Ur Specific [place] Urine Protein Urine Glucose (UA) Urine Ketones Urine Blood Urine Nitrite Ur Leukocyte Esterase Urine RBC Urine WBC Ur Squamous Epith Cells Urine Bacteria Hyaline Casts Urine Opiates Screen Urine Fentanyl Screen Ur Barbiturates Screen Valproic Acid < 12.5 L Ur Phencyclidine Scrn Ur Amphetamines Screen U Benzodiazepines Scrn Urine Cocaine Screen U Marijuana (THC) Screen Ethyl Alcohol < 10 05/19/23 05/19/23 06:44 10:45 MCV MCH MCHC RDW Plt Count MPV Immature Gran % (Auto) Neut % (Auto) Lymph % (Auto) [place] % (Auto) Eos % (Auto) Baso % (Auto) Lymph # (Auto) [place] # (Auto) Eos # (Auto) Baso # (Auto) Abs Immat Gran (auto) Absolute Neuts (auto) Absolute Nucleated RBC Nucleated RBC % (auto) PT INR APTT D-Dimer High Sensitivty Anion Gap Estim Creat Clear Calc Estimated GFR POC Glucose Random Glucose Lactic Acid 0.8 Calcium Magnesium Total Bilirubin AST ALT Alkaline Phosphatase Total Creatine Kinase Total Protein Albumin Beta HCG, Quant Urine Color Yellow Urine Appearance Clear Urine pH 5.5 Ur Specific [place] >= 1.030 H Urine Protein Negative Urine Glucose (UA) Negative Urine Ketones Trace Urine Blood Negative Urine Nitrite Negative Ur Leukocyte Esterase Negative Urine RBC 3-5 H Urine WBC 0-5 Ur Squamous Epith Cells 3-5 Urine Bacteria None Seen Hyaline Casts 0-2 Urine Opiates Screen Not Detected Urine Fentanyl Screen Not Detected Ur Barbiturates Screen Not Detected Valproic Acid Ur Phencyclidine Scrn Not Detected Ur Amphetamines Screen Not Detected U Benzodiazepines Scrn Not Detected Urine Cocaine Screen Not Detected U Marijuana (THC) Screen Not Detected Ethyl Alcohol Imaging Radiologist's Impressions: Impressions Chest X-Ray 05/19/23 06:23 IMPRESSION: Unremarkable examination. Head CT 05/19/23 07:53 IMPRESSION: No acute intracranial process seen. Assessment and Plan (1) Tachycardia: Status: Acute (2) Near syncope: Status: Acute Plan Pt is a 27-year-old Citizen [place]-speaking female with a PMH significant for?microcytic anemia, menorrhagia, and seizure disorder who presents to the ED with?lightheadedness, dizziness, tachycardia with standing. Pt will be admitted to the hospital under observation for treatment and further evaluation of possible POTS. Question of POTS Patient with lightheadedness, dizziness, palpitations with standing since 05/06/2023 Reportedly recently in ICU at [facility], records have been requested but not yet received Will start on metoprolol 12.5 bid Repeat orthostatics in the morning If symptoms persist, start fludrocortisone 0.05 mg daily Encourage p.o. fluid and salt intake PT evaluation Consider cardiology consult if symptoms do not improve or worsen with above treatment Seizure disorder Continue Keppra Hx of microcytic anemia Patient's H&H on 07/05/2021 was 8.3/26.4 with MCV 61.0 History of menorrhagia, placed on oral contraceptives and then moved to IUD Given IV iron in started iron supplements 3 days a week H&H today stable and WNL at 14 0.3/39.6 Continue oral iron supplementation Full Code Attending:?Dr. Junior DVT Prophylaxis: Lovenox Patient will be admitted to the hospital under observation for treatment further evaluation possible POTS. Quality Stroke Does the patient have a stroke diagnosis?: No VTE Prior VTE?: No VTE Risk Level:: Medical - moderate - high VTE Device Contraindication: Treatment Not Indicated VTE Drug Contraindication: N/A - Med Ordered
[2023-05-19] MEDS: Enoxaparin Sodium 40 MG/0.4 ML SYRINGE SUBCUT (13:33)
[2023-05-19] MEDS: Metoprolol Tartrate 12.5 MG HALFTAB PO (13:33)
--- NOTE | 2023-05-19 13:55 | MHC.EDTECH ---
Brought patient cup of ice.
--- NOTE | 2023-05-19 14:16 | PHA.MEDREC ---
Pharmacy Consult ? Medication Reconciliation Pharmacy has completed the medication reconciliation. Patient mentions taking Iron 365 mg MWF, however states they haven't taken it in 4 months. Leaving off med rec.
[2023-05-19] MEDS: 0.9 % Sodium Chloride Flush 3 ML SYRINGE IVFLUSH (20:45)
[2023-05-20] VITALS (10 sets, daily range): BP systolic 102–131; BP diastolic 52–66; PULSE 61–135; RESP 18–20; TEMP 36.3–37.1; O2SAT 98–100
--- NOTE | 2023-05-20 00:53 | PC.NURSE ---
pt metoprolol held due to HR in the low 50s.
[2023-05-20] MEDS: Acetaminophen 325 MG TABLET 650 MG PO (02:53)
--- NOTE | 2023-05-20 07:00 | CA_ITS ---
Transthoracic Echocardiogram Patient (Last, First, Middle): Patsy Ray O Gender: Female Date of : 1995 Age: 27 Procedure Date: 05/20/2023 Procedure Type: Transthoracic Echocardiogram Location: [facility] [place] Height: 170.18 cm Weight: 54.43 kg BSA: 1.63 m2 Heart Rate: bpm BP: 114 / 58 mmHg Configuration Release Manager: Referring MD: Dane Tejeda DO Capsule Machine Operator: Ciro Vasquez MD Symptoms: orthostatic syncope Study Quality: Adequate ECG Rhythm: Sinus with extra beats Conclusions: - Normal study Findings Left Ventricle Normal left ventricular size, thickness, and systolic function. The visually estimated ejection fraction is between 60-65%. Spectral Doppler is indicative of a normal filling pattern. Right Ventricle Normal right ventricular cavity size and systolic function. Atria Both atria are normal in size. There is no evidence of interatrial shunt. Aortic Valve Normal aortic valve structure and function. There is no aortic valve stenosis. There is no aortic valve regurgitation. Mitral Valve Normal mitral valve structure and function. There is trace mitral valve regurgitation. There is no mitral valve stenosis. Pulmonic Valve The pulmonic valve is likely normal. Tricuspid Valve Normal tricuspid valve structure. There is trace tricuspid valve regurgitation. The right ventricular systolic pressure is normal. The right ventricular systolic pressure is 18 mmHg. Normal right atrial pressure. There is no evidence of pulmonary hypertension. Great Vessels All visible segments of the aorta are normal in size. The visualized portions of the pulmonary artery and branches are normal. Venous The inferior vena cava is normal in size and collapses greater than 50% with inspiration. Pericardium/Pleural There is no evidence of pericardial effusion. Prior Study Comparison No prior study available for comparison. Measurements 2D Linear Measurements IVSd: 0.72 0.6-0.9/0.6-1.0 cm LVIDd: 4.69 3.9-5.3/4.2-5.9 cm LVIDd Index: 2.88 2.4-3.2/2.2-3.1 cm/m2 LVIDs: 3.43 2.0-3.6 cm LVPWd: 0.77 0.7-1.1 cm Ao Root: 2.80 2.1-3.5 cm LA Diam: 2.60 2.7-3.8/3.0-4.0 cm LAIDs Index: 1.60 1.5-2.3 cm/m2 LV Mass: 138.90 67-162/88-224 g LV Mass Index: 85.21 43-95/49-115 g/m2 LVOT Diam: 2.00 3.0+(-)1.3 cm Mitral Valve MV Pk E: 0.52 MV PK A: 0.52 MV Decel Time: 124.00 E/A: 1.00 E'Lateral: 15.90 E'Medial: 10.10 E/E' Med: 5.10 E/E' Lat: 3.30 PHT: 36.00 MVA PHT: 6.11 Decel Stewart: 4.20 Aortic Valve AoV Pk Fabricio: 1.29 AoV Mn Fabricio: 0.85 AoV VTI: 0.23 AoV Pk Grad: 7.00 Aov Mn Grad: 3.00 MARGO Cont.VTI: 2.20 LVOT LVOT Pk Fabricio: 0.93 LVOT Mn Fabricio: 0.61 LVOT VTI: 0.16 LVOT Pk Grad: 3.00 LVOT Mn Grad: 2.00 LVOT Diam: 2.00 LVOT Area: 3.14 Diastolic Function MV Pk E: 0.52 MV Pk A: 0.52 E/A: 1.00 E'Medial: 10.10 E/E' Med: 5.10 E' Laterial: 15.90 E/E' Lat: 3.30 Right Ventricle TAPSE (mm): 19.00 TVS' Fabricio: 12.00 Tricuspid Valve TR Pk Fabricio: 1.94 TR Pk Grad: 15.00 RA Press: 3.00 RVSP: 18.00 Great Vessels Aorta Ao Root-2D: 2.80 2.0-3.7 cm Ao Asc: 2.70 2.1-3.4 cm Pulmonary Valve PV Pk Fabricio: 1.14 Peak PV Grad: 5.00 Updated in Other Vendor System with Status of Final Ciro Vasquez MD electronically signed on 05/20/2023 2:39:42 PM with status of Final
--- NOTE | 2023-05-20 08:36 | MHC.CM.PN ---
CM met with Patient at bedside and addressed ISBELL with her, providing Patient with the original and a copy has been placed on the chart. Patient lives in a house with her Cousin and she required no services nor DME THREAD GRINDER. Home/self care is the goal and CM has initiated and will follow for dc planning. PCP/PRODUCTION SUPERINTENDENT is Mery Masters.
--- NOTE | 2023-05-20 12:04 | P.CONCA_ITS ---
History of Present Illness History of Present Illness Date of Service: 05/20/23 Requesting physician: Dane Tejeda Consult reason: other (POTS) Chief complaint: lightheadedness, tachycardia w/ standing, ?POTS Narrative: I was consulted to see Patsy for evidence of orthostatic tachycardia. History was obtained with help of decorative engraver at bedside and in presence of her mother her aunt and her uncle. Cardiology consult was sought because patient was noted to have significant orthostatic tachycardia. Heart rate at rest in supine position the 60s and with upright with orthostatic vital check noted to be 135 beats per minute. Patient admitted to the hospital with lightheadedness, dizziness with standing. Patient has longstanding history of these episodes since age of 10. She is very frustrated as she has had multiple Dr evaluation for these episodes. After comprehensive history with help of decorative engraver I was able to identify 2 different sets of symptoms. Patient has under time of menstrual cycle symptoms of lightheadedness, rapid heart rate when she gets up and loss of consciousness. This loss of consciousness associated with flaccid status as per the mother. Days with Ms. This episodes multiple time. When she passes out she wakes up quickly and then has some post passing out confusion/hallucinations. She has another episode of loss of consciousness where she gets thigh pain and shoulder pain and is followed by becoming rigid and sometimes tonic clonic convulsions. She has been diagnosed with seizure disorder as well and is currently on 2 antiepileptics. This was diagnosed at age of 12. 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 Cardiology consult was sought because of her postural tachycardia. However patient says today when she got up and the yesterday she got up she was not lightheaded at home all. Cardiology was consulted to help with management. She is noted to have intermittent PVCs although she denies any skipped heartbeats. However when she is getting her syncopal episode she does feel the symptoms of tachycardia. She says she has increased her fluid intake and salt intake. Despite that she continues to have these episodes. Review of Systems 2 Constitutional: Constitutional: Reports no additional constitutional complaints Eyes: Eyes: Reports no additional eye complaints Cardiovascular: Cardiovascular: Denies chest pain, Reports pedal edema, Reports lightheadedness, Reports Loss of Consciousness, Reports palpitations and Reports dyspnea Respiratory: Respiratory: Reports no additional respiratory complaints and Reports dyspnea Gastrointestinal: Gastrointestinal: Reports no additional gastrointestinal complaints Genitourinary: Genitourinary: Reports no additional female genitourinary complaints Musculoskeletal: Musculoskeletal: Reports no additional musculoskeletal complaints Integumentary/Breasts: Skin/Breast: Reports system reviewed and no additional complaints, except as docu Neurologic: Reports seizure-like activity Psychiatric: Psychiatric: Reports no additional psychiatric complaints Endocrine: Endocrine: Reports no additional endocrine complaints and Reports palpitations Hematologic/Lymphatic: Hematologic/Lymphatic: Reports no additional hematologic/lymphatic complaints [facility] Past Medical History Medical History Seizure disorder delivery delivered Chronic headaches Heavy menstrual bleeding LIANA (iron deficiency anemia) Seizures Family History Family History Brother Diabetes mellitus, type 2 Father Diabetes mellitus type 2, controlled Paternal Grandmother Breast cancer Surgical History Surgical History History of delivery Social History Social History Household Members: Children Housing: House Are you a primary care services manager to a significant other at home: No Do you presently have visiting nurse or other home services: No Alcohol intake: never Patient Tobacco Use Status: Never used Tobacco Currently Displaying Signs/Symptoms of Drug Intoxication Withdrawal: No Advance Directives: No Advance Directives Information Provided: No Nutrition Risks: No Nutritional Risk service: No Current occupational status: unemployed Meds Allergies Allergy/AdvReac Type Severity Reaction Status Date / Time No Known Allergies Allergy Verified 12/21/21 13:03 Active Medications: Current Medications Acetaminophen (Acetaminophen 325 Mg Tablet) 650 mg PO Q6H PRN PRN Reason: Pain, Mild (Pain Scale 1-3) Last Admin: 05/20/23 02:53 Dose: 650 mg Ascorbic Acid (Ascorbic Acid 500 Mg Tablet) 1,000 mg PO DAILY [facility] Benzonatate (Benzonatate 100 Mg Capsule) 100 mg PO TID PRN PRN Reason: Cough Docusate Sodium (Docusate Sodium 100 Mg Capsule) 100 mg PO DAILY PRN PRN Reason: Constipation Enoxaparin Sodium (Enoxaparin Sodium 40 Mg/0.4 Ml Syringe) 40 mg SUBCUT Q24H [facility] Last Admin: 05/19/23 13:33 Dose: 40 mg Lactated Ringer's (Lr) 500 mls @ 500 mls/hr IVCONT .Q1H [facility] Stop: 05/20/23 14:59 Levetiracetam (Levetiracetam 500 Mg Tablet) 1,500 mg PO BID [facility] Magnesium Oxide (Magnesium Oxide 400 Mg Tablet) 400 mg PO DAILY [facility] Melatonin (Melatonin 3 Mg Tablet) 6 mg PO BEDTIME PRN PRN Reason: Insomnia Metoprolol Tartrate (Metoprolol Tartrate 12.5 Mg Halftab) 12.5 mg PO BID [facility]; Protocol Last Admin: 05/20/23 08:46 Dose: Not Given Ondansetron HCl (Ondansetron Hcl 4 Mg/2 Ml Vial) 4 mg IVPUSH Q8H PRN PRN Reason: Nausea and Vomiting Sodium Chloride (0.9 % Sodium Chloride Flush 3 Ml Syringe) 3 ml IVFLUSH QSHIFT [facility] Last Admin: 05/20/23 09:00 Dose: Not Given Topiramate (Topiramate 100 Mg Tablet) 200 mg PO BID [facility] Home Medications Medication Instructions Recorded Confirmed Last Taken Type levetiracetam 1,000 mg tablet 1,500 mg PO Q12H 07/05/21 05/19/23 05/18/23 History (Keppra) ascorbic acid (vitamin C) 1,000 mg 1,000 mg PO DAILY 05/19/23 05/19/23 05/18/23 History tablet (Vitamin C) magnesium oxide 400 mg (241.3 mg 400 mg PO DAILY 05/19/23 05/19/23 05/18/23 History magnesium) tablet topiramate 200 mg tablet 200 mg PO BID 05/19/23 05/19/23 05/18/23 History Physical Exam 2 Vital Signs: Vital Signs: Last Vital Signs Temp 98.8 F 05/20/23 11:41 Pulse 70 05/20/23 11:41 Resp 20 05/20/23 11:41 BP 114/58 L 05/20/23 11:41 Pulse Ox 98 05/20/23 11:41 O2 Del Method Room Air 05/20/23 11:41 BMI result Body Mass Index 22.6 Const: General: cooperative, comfortable, no acute distress, well developed, alert, awake and Physically active Nutritional Appearance: well nourished and thin Orientation/consciousness: patient oriented x3 Limitations: no limitations HEENT: Head: Yes normocephalic and Yes atraumatic Neck: Neck: Yes trachea midline, Yes supple and Yes no JVD Resp: Effort & Inspection: normal respiratory effort Auscultation: clear to auscultation bilaterally Cardio: Jugular venous distension: no JVD Palpation: normal PMI Rate: r egular rate Rhythm: abnormal rhythm with ectopic beats Heart sounds: S1 normal heart sound present, S2 normal heart sound present, no click, no gallops, no murmurs and no rubs GI: Auscultation: normal bowel sounds Skin: General skin exam: no rashes or lesions noted Neuro: General: patient oriented x3 and no focal motor deficits Extrem: General: Yes no clubbing, cyanosis or edema Objective Labs and Meds 05/19/23 05:56 05/19/23 05:56 ECG Interpretation: EKG shows sinus tachycardia with frequent PVCs with nonspecific ST changes Assessment and Plan (1) Near syncope: Status: Acute Patient present with near-syncope with physical findings consistent with postural orthostatic tachycardia syndrome. This is most likely related to autonomic dysfunction. Cause of autonomic dysfunction is unclear. Would check TSH and plasma metanephrines. She has 2 different causes for her loss of consciousness including orthostatic syncope and seizure disorder. I am not sure if these are related at any point in time. I would suggest her while she is inpatient here today to inside wirer 2 L of normal saline or any crystalloid solution over the next 4 hours and check her orthostatic vitals. She says she drinks a lot of fluid and salt at home already and I think she will most likely benefit from volume bevel face stoner and polisher such as fludrocortisone. Would start on 0.1 mg daily after the fluid challenge. We discussed about the findings and management of orthostatic tachycardia syndrome. She does have frequent PVCs and would suggest an echocardiogram to evaluate for cardiac structure and function. She continues to remain tachycardic and is volume expanded may also benefit from beta-jarrett therapy in the future and/or Corlanor therapy. Once she is adequately treated and volume expanded and her tachycardia is resolved would consider discharging home as long as she is able to ambulate. Will require outpatient workup including Holter and head-up tilt-table test. Management of seizure disorder as per the primary team. Will follow with the patient. Procedures Date of Service Date of Service: 05/20/23
[2023-05-20] MEDS: levETIRAcetam 500 MG TABLET 1500 MG PO ×2 (12:20→20:48)
[2023-05-20] MEDS: Enoxaparin Sodium 40 MG/0.4 ML SYRINGE SUBCUT (12:20)
[2023-05-20] MEDS: Lactated Ringers 1,000 ML 500 ML IVCONT ×2 (12:30→14:17)
--- NOTE | 2023-05-20 13:37 | MHC.CM.PN ---
Per UR/RN/CM, Patient has been switched from OBSERVATION to INPATIENT.
--- NOTE | 2023-05-20 16:24 | P.PNIM_ITS ---
Subjective Subjective Date of Service: 05/20/23 Interval History: Continues to have orthostatic tachycardia; discussed with Cardiology 2 L fluid bolus in progress. Review of Systems Denies chest pain Denies shortness of breath Denies nausea vomiting diarrhea Denies fever chills Physical Exam 2 Vital Signs: Vital Signs: Last Vital Signs Temp 97.9 F 05/20/23 15:17 Pulse 77 05/20/23 15:17 Resp 18 05/20/23 15:17 BP 110/58 L 05/20/23 15:17 Pulse Ox 100 05/20/23 15:17 O2 Del Method Room Air 05/20/23 15:17 BMI result Body Mass Index 22.6 Const: Other: Awake alert oriented x3; ([place]ese-speaking all information via analog ic design architect) Resp: Other: Clear to auscultation bilaterally no rales rhonchi or wheezes Cardio: Other: No S4; positive S1-S2; no S3 murmurs rubs or gallops GI: Other: Soft nontender nondistended normoactive bowel sounds Neuro: Other: Cranial nerves 2-12 grossly intact as tested. Motor is 5/5 extremities. Sensation is intact. Cognition appropriate Extrem: Other: No edema bilaterally Objective Data Active Medications Acetaminophen (Acetaminophen 325 Mg Tablet) 650 mg PO Q6H PRN PRN Reason: Pain, Mild (Pain Scale 1-3) Last Admin: 05/20/23 02:53 Dose: 650 mg Documented By: IRENA Ascorbic Acid (Ascorbic Acid 500 Mg Tablet) 1,000 mg PO DAILY [facility] Benzonatate (Benzonatate 100 Mg Capsule) 100 mg PO TID PRN PRN Reason: Cough Docusate Sodium (Docusate Sodium 100 Mg Capsule) 100 mg PO DAILY PRN PRN Reason: Constipation Enoxaparin Sodium (Enoxaparin Sodium 40 Mg/0.4 Ml Syringe) 40 mg SUBCUT Q24H [facility] Last Admin: 05/20/23 12:20 Dose: 40 mg Documented By: MARY Lactated Ringer's (Lr) 1,000 mls @ 500 mls/hr IVCONT .Q2H [facility] Stop: 05/20/23 16:29 Last Admin: 05/20/23 14:17 Dose: 500 mls/hr Documented By: MARY Levetiracetam (Levetiracetam 500 Mg Tablet) 1,500 mg PO BID [facility] Last Admin: 05/20/23 12:20 Dose: 1,500 mg Documented By: MARY Magnesium Oxide (Magnesium Oxide 400 Mg Tablet) 400 mg PO DAILY [facility] Melatonin (Melatonin 3 Mg Tablet) 6 mg PO BEDTIME PRN PRN Reason: Insomnia Metoprolol Tartrate (Metoprolol Tartrate 12.5 Mg Halftab) 12.5 mg PO BID [facility]; Protocol Last Admin: 05/20/23 08:46 Dose: Not Given Documented By: MARY Non-Admin Reason: Physician Approved Ondansetron HCl (Ondansetron Hcl 4 Mg/2 Ml Vial) 4 mg IVPUSH Q8H PRN PRN Reason: Nausea and Vomiting Sodium Chloride (0.9 % Sodium Chloride Flush 3 Ml Syringe) 3 ml IVFLUSH QSHIFT [facility] Last Admin: 05/20/23 14:19 Dose: Not Given Documented By: MARY Non-Admin Reason: IV Running Topiramate (Topiramate 100 Mg Tablet) 200 mg PO BID [facility] Labs 05/19/23 05:56 05/19/23 05:56 Assessment and Plan (1) POTS (postural orthostatic tachycardia syndrome): Status: Acute (2) Seizure disorder: Status: Acute (3) Microcytic hypochromic anemia: Status: Acute Plan Pt is a 27-year-old [place]ese-speaking female with a PMH significant for?microcytic anemia, menorrhagia, and seizure disorder who presents to the ED with?lightheadedness, dizziness, tachycardia with standing. Seen by Cardiology. . . Plan implemented 1.Question of POTS -currently undergoing 2 L fluid challenge over 4 hours -start fludrocortisone in a.m. -check TSH/metanephrines -check 2D echo -further plans based on forthcoming data 2.Seizure disorder -no noted seizure activity since admission -continue Keppra -follow clinically 3.Hx of microcytic anemia -on oral iron therapy -hemoglobin stable -follow daily CBC Full Code Lovenox Patient requires ongoing hospitalization for volume repletion and continued workup of orthostatic tachycardia. She also requires specialist consult and ongoing therapies Quality Stroke Does the patient have a stroke diagnosis?: No VTE Prior VTE?: No VTE Risk Level:: Medical - moderate - high VTE Device Contraindication: Treatment Not Indicated VTE Drug Contraindication: N/A - Med Ordered
[2023-05-20] MEDS: 0.9 % Sodium Chloride Flush 3 ML SYRINGE IVFLUSH (20:48)
[2023-05-20] MEDS: Topiramate 100 MG TABLET 200 MG PO (20:48)
[2023-05-20] MEDS: Metoprolol Tartrate 12.5 MG HALFTAB PO (20:48)
[2023-05-21] VITALS (9 sets, daily range): BP systolic 99–121; BP diastolic 50–70; PULSE 50–154; RESP 18–20; TEMP 36.4–36.8; O2SAT 99–100
[2023-05-21 05:41] LABS: MANUAL DIFF FLAG NO
[2023-05-21 05:47] LABS: Basophils Percent Auto 0.1 % (0-2); Eosinophils Absolute Auto 0.2 X10*3/uL (0.0-0.4); Eosinophils Percent Auto 2.5 % (0-4); Hematocrit 32.3 % (37.0-47.0); Hemoglobin 11.7 g/dl (12.0-16.0); Imm Gran Abs Auto 0.02 X10*3/uL (0.00-0.03); Imm Gran Pct Auto 0.3 % (0.0-0.4); Lymphocytes Absolute Auto 3.4 X10*3/uL (1.2-4.9); Lymphocytes Percent Auto 47.1 % (20-40); Mean Corpuscular HGB Conc 36.2 g/dl (31.0-35.0); Mean Corpuscular Hemoglobin 27.8 pg (27.0-33.0); Mean Corpuscular Volume 76.7 fL (80.0-98.0); Mean Platelet Volume 11.9 fL (9.4-12.3); Monocytes Absolute Auto 0.7 X10*3/uL (0.1-1.2); Platelet Count 207 X10*3/uL (160-400); Red Blood Count 4.21 X10*6/uL (4.20-5.50); Red Cell Distribution Width 12.7 % (11.0-16.0); White Blood Count 7.2 X10*3/uL (4.8-10.8)
[2023-05-21 06:19] LABS: Alanine Aminotransferase 7 U/L (0-31); Albumin Level 3.7 g/dL (3.5-5.0); Alkaline Phosphatase 37 U/L (39-117); Anion Gap 10 (12-20); Aspartate Amino Transferase 12 U/L (5-31); Bilirubin Total 0.8 mg/dL (0.0-1.0); Blood Urea Nitrogen 8 mg/dL (9-16); Calcium 8.9 mg/dL (8.4-10.2); Carbon Dioxide 18 mmol/L (22-29); Chloride 117 mmol/L (96-108); Creatinine Clr Calc Pharmacy 103.4; Estimated Glomerular Filt Rate > 60; Glucose Fasting 88 mg/dL (60-99); Sodium 141 mmol/L (135-145); Total Protein 6.6 g/dL (6.5-8.0)
[2023-05-21 06:28] LABS: Thyroid Stimulating Hormone 1.32 uIU/mL (0.32-4.0)
[2023-05-21] MEDS: levETIRAcetam 500 MG TABLET 1500 MG PO ×2 (08:16→20:36)
[2023-05-21] MEDS: Ascorbic Acid 500 MG TABLET 1000 MG PO (08:16)
[2023-05-21] MEDS: Topiramate 100 MG TABLET 200 MG PO ×2 (08:16→20:36)
[2023-05-21] MEDS: Magnesium Oxide 400 MG TABLET PO (08:16)
[2023-05-21] MEDS: 0.9 % Sodium Chloride Flush 3 ML SYRINGE IVFLUSH ×2 (08:18→20:36)
--- NOTE | 2023-05-21 11:26 | PM.PNCARD ---
Subjective Subjective Date of Service: 05/21/23 Principal diagnosis: Postural tachycardia Interval history: Patient has not got walking since yesterday. Repeated orthostatics and she still has orthostatic tachycardia with symptoms of lightheadedness. Review of Systems Constitutional: Reports no additional constitutional complaints Cardiovascular: Reports rapid heart rate (Standing up) and Reports lightheadedness (Standing up) Respiratory: Reports no additional respiratory complaints Genitourinary: Reports no additional female genitourinary complaints Musculoskeletal: Reports no additional musculoskeletal complaints Reports system reviewed and no additional complaints, except as documented Endocrine: Reports no additional endocrine complaints Physical Exam Vital Signs: Last Vital Signs Temp 97.5 F 05/21/23 11:17 Pulse 63 05/21/23 11:17 Resp 20 05/21/23 11:17 BP 119/58 L 05/21/23 11:17 Pulse Ox 100 05/21/23 11:17 O2 Del Method Room Air 05/21/23 11:17 BMI result Body Mass Index 22.6 Const General: cooperative, comfortable, no acute distress, well developed, alert, awake and Physically active Nutritional Appearance: well nourished and thin Orientation/consciousness: patient oriented x3 Limitations: no limitations HEENT Head: Yes normocephalic and Yes atraumatic Neck Neck: Yes trachea midline, Yes supple and Yes no JVD Resp Effort & Inspection: normal respiratory effort Auscultation: clear to auscultation bilaterally Cardio Jugular venous distension: no JVD Palpation: normal PMI Rate: regular rate Rhythm: abnormal rhythm with ectopic beats Heart sounds: S1 normal heart sound present, S2 normal heart sound present, no click, no gallops, no murmurs and no rubs GI Auscultation: normal bowel sounds Skin General skin exam: no rashes or lesions noted Neuro General: patient oriented x3 and no focal motor deficits Extrem General: Yes no clubbing, cyanosis or edema Objective Labs and Meds 05/21/23 05:31 05/21/23 05:31 Lab results: Laboratory Results - last 24 hr 05/21/23 05:31 WBC 7.2 RBC 4.21 Hgb 11.7 L Hct 32.3 L MCV 76.7 L MCH 27.8 MCHC 36.2 H RDW 12.7 Plt Count 207 D MPV 11.9 Immature Gran % (Auto) 0.3 Neut % (Auto) 41.0 L Lymph % (Auto) 47.1 H [place] % (Auto) 9.0 Eos % (Auto) 2.5 Baso % (Auto) 0.1 Lymph # (Auto) 3.4 [place] # (Auto) 0.7 Eos # (Auto) 0.2 Baso # (Auto) 0.0 Abs Immat Gran (auto) 0.02 Absolute Neuts (auto) 3.0 Absolute Nucleated RBC 0.000 Nucleated RBC % (auto) 0.0 Sodium 141 Potassium 4.0 Chloride 117 H Carbon Dioxide 18 L Anion Gap 10 L BUN 8 L Creatinine 0.64 Estim Creat Clear Calc 103.4 Estimated GFR > 60 Fasting Glucose 88 Calcium 8.9 Total Bilirubin 0.8 AST 12 ALT 7 Alkaline Phosphatase 37 L Total Protein 6.6 Albumin 3.7 TSH 1.32 Progress Note: A&P Assessment and plan (1) POTS (postural orthostatic tachycardia syndrome): Status: Acute Assessment and Plan: Patient still highly symptomatic with partial lightheadedness with significant tachycardia. Given a bolus of 2 L of normal saline O2 next 2 hours along with fludrocortisone 0.1 mg. Repeat orthostatic vitals right away after she receives and completes her bolus. If remains symptomatic and or has significant tachycardia will require additional midodrine therapy. Will continue to follow Time Spent With Patient Time: Total time managing care of this patient today ____ minutes. Progress Note: Quality Stroke Does the patient have a stroke diagnosis?: No Procedures Date of Service Date of Service: 05/21/23
[2023-05-21] MEDS: Fludrocortisone Acetate 0.1 MG TABLET PO (11:45)
[2023-05-21] MEDS: 0.9 % Sodium Chloride 1,000 ML 999 ML IVCONT ×2 (11:45→12:59)
[2023-05-21] MEDS: Enoxaparin Sodium 40 MG/0.4 ML SYRINGE SUBCUT (11:45)
--- NOTE | 2023-05-21 15:31 | HO.PM.IMPN ---
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 Motor is 5/5 extremities. Sensation is intact. Cognition appropriate Extrem: Other: No edema bilaterally Objective Data Active Medications Acetaminophen (Acetaminophen 325 Mg Tablet) 650 mg PO Q6H PRN PRN Reason: Pain, Mild (Pain Scale 1-3) Last Admin: 05/20/23 02:53 Dose: 650 mg Documented By: IRENA Ascorbic Acid (Ascorbic Acid 500 Mg Tablet) 1,000 mg PO DAILY [facility] Last Admin: 05/21/23 08:16 Dose: 1,000 mg Documented By: MARY Benzonatate (Benzonatate 100 Mg Capsule) 100 mg PO TID PRN PRN Reason: Cough Docusate Sodium (Docusate Sodium 100 Mg Capsule) 100 mg PO DAILY PRN PRN Reason: Constipation Enoxaparin Sodium (Enoxaparin Sodium 40 Mg/0.4 Ml Syringe) 40 mg SUBCUT Q24H [facility] Last Admin: 05/21/23 11:45 Dose: 40 mg Documented By: MARY Levetiracetam (Levetiracetam 500 Mg Tablet) 1,500 mg PO BID [facility] Last Admin: 05/21/23 08:16 Dose: 1,500 mg Documented By: MARY Magnesium Oxide (Magnesium Oxide 400 Mg Tablet) 400 mg PO DAILY [facility] Last Admin: 05/21/23 08:16 Dose: 400 mg Documented By: MARY Melatonin (Melatonin 3 Mg Tablet) 6 mg PO BEDTIME PRN PRN Reason: Insomnia Metoprolol Tartrate (Metoprolol Tartrate 12.5 Mg Halftab) 12.5 mg PO BID [facility]; Protocol Last Admin: 05/21/23 08:24 Dose: Not Given Documented By: MARY Non-Admin Reason: Decreased Heart Rate Comments: HR 50s-60s Ondansetron HCl (Ondansetron Hcl 4 Mg/2 Ml Vial) 4 mg IVPUSH Q8H PRN PRN Reason: Nausea and Vomiting Sodium Chloride (0.9 % Sodium Chloride Flush 3 Ml Syringe) 3 ml IVFLUSH QSHIFT [facility] Last Admin: 05/21/23 14:50 Dose: Not Given Documented By: MARY Non-Admin Reason: Previously Administered Topiramate (Topiramate 100 Mg Tablet) 200 mg PO BID [facility] Last Admin: 05/21/23 08:16 Dose: 200 mg Documented By: MARY Labs 05/21/23 05:31 05/21/23 05:31 Labs: Laboratory Results - last 24 hr 05/21/23 05:31 MCV 76.7 L MCH 27.8 MCHC 36.2 H RDW 12.7 Plt Count 207 D MPV 11.9 Immature Gran % (Auto) 0.3 Neut % (Auto) 41.0 L Lymph % (Auto) 47.1 H Richardson % (Auto) 9.0 Eos % (Auto) 2.5 Baso % (Auto) 0.1 Lymph # (Auto) 3.4 Richardson # (Auto) 0.7 Eos # (Auto) 0.2 Baso # (Auto) 0.0 Abs Immat Gran (auto) 0.02 Absolute Neuts (auto) 3.0 Absolute Nucleated RBC 0.000 Nucleated RBC % (auto) 0.0 Anion Gap 10 L Estim Creat Clear Calc 103.4 Estimated GFR > 60 Fasting Glucose 88 Calcium 8.9 Total Bilirubin 0.8 AST 12 ALT 7 Alkaline Phosphatase 37 L Total Protein 6.6 Albumin 3.7 TSH 1.32 Assessment and Plan (1) POTS (postural orthostatic tachycardia syndrome): Status: Acute (2) Seizure disorder: Status: Acute Plan Pt is a 27-year-old [place] Islander-speaking female with a PMH significant for?microcytic anemia, menorrhagia, and seizure disorder who presents to the ED with?lightheadedness, dizziness, tachycardia with standing. Seen by Cardiology. . . Plan implemented 1.Question of POTS -currently undergoing 2 L fluid challenge over 4 hours... Orthostatics still positive -start Midodrine 2.5mg TICAC -check TSH/metanephrines -check 2D echo -further plans based on forthcoming data 2.Seizure disorder -no noted seizure activity since admission -continue Keppra -follow clinically 3.Hx of microcytic anemia -on oral iron therapy -hemoglobin stable -follow daily CBC Full Code Lovenox Patient requires ongoing hospitalization for volume repletion and continued workup of orthostatic tachycardia. She also requires specialist consult and ongoing therapies Quality Stroke Does the patient have a stroke diagnosis?: No VTE Prior VTE?: No VTE Risk Level:: Medical - moderate - high VTE Device Contraindication: Treatment Not Indicated VTE Drug Contraindication: N/A - Med Ordered
--- NOTE | 2023-05-21 15:33 | PC.NURSE ---
report received from overnight RN, digital media planner per AUG. pt mainly Maldivian speaking, medical/surgery registered nurse called throughout shift to assist with translation. orders for 2L bolus over 2 hours and then recheck of orthostatic VS, results sent to welder fitter apprentice and hospitalist. During orthostatic vitals pt complaining of tingling to cheeks and feet, informed. Pt requesting to try ambulating, informed that while she is symptomatic it is not safe, pt agreeable. safety precautions remain in place, call landeros within reach, family at bedside.
[2023-05-21] MEDS: Midodrine HCl 2.5 MG TABLET PO ×2 (16:59→20:36)
[2023-05-21] MEDS: Metoprolol Tartrate 12.5 MG HALFTAB PO (20:36)
[2023-05-22] VITALS (8 sets, daily range): BP systolic 92–111; BP diastolic 43–63; PULSE 51–92; RESP 16–20; TEMP 36.1–36.9; O2SAT 99–100
[2023-05-22] MEDS: levETIRAcetam 500 MG TABLET 1500 MG PO ×2 (08:12→20:53)
[2023-05-22] MEDS: Magnesium Oxide 400 MG TABLET PO (08:12)
[2023-05-22] MEDS: Midodrine HCl 2.5 MG TABLET PO (08:13)
[2023-05-22] MEDS: Ascorbic Acid 500 MG TABLET 1000 MG PO (08:13)
[2023-05-22] MEDS: Topiramate 100 MG TABLET 200 MG PO ×2 (08:14→20:53)
[2023-05-22] MEDS: 0.9 % Sodium Chloride Flush 3 ML SYRINGE IVFLUSH ×3 (08:14→20:54)
--- NOTE | 2023-05-22 10:17 | MHC.CM.PN ---
Per ROUNDS discussion, Patient is still orthostatic and is not yet medically cleared for dc. PT is recommending home with family support and CM will continue to follow.
--- NOTE | 2023-05-22 11:27 | PM.PNCARD ---
Subjective Subjective Date of Service: 05/22/23 Principal diagnosis: Postural tachycardia Interval history: Patient continues to have postural tachycardia and what is surprising that her blood pressure also rise when she is standing for some period time. The plasma metanephrine levels are still pending. Patient did receive fluid bolus yesterday followed by fludrocortisone and despite that had tachycardia. We then started on midodrine therapy. She received midodrine again this morning and with upright positioning she felt better. Heart rate only went up to 120 beats per minute. She then walked the entire hallway without having any symptoms and felt well. She was quite happy that she is able to walk the hallway. She denies any lightheadedness. However as soon as she went supine a blood pressure dropped into the 90s and heart rate in the 50s. Her TSH is within normal limits Review of Systems Constitutional: Reports no additional constitutional complaints Cardiovascular: Reports no additional cardiovascular complaints Gastrointestinal: Reports no additional gastrointestinal complaints Skin/Breast: Reports system reviewed and no additional complaints, except as docu Reports system reviewed and no additional complaints, except as documented Psychiatric: Reports no additional psychiatric complaints Physical Exam Vital Signs: Last Vital Signs Temp 97.9 F 05/22/23 07:33 Pulse 58 05/22/23 07:33 Resp 16 05/22/23 07:33 BP 95/43 L 05/22/23 07:33 Pulse Ox 100 05/22/23 07:33 O2 Del Method Room Air 05/22/23 07:33 BMI result Body Mass Index 22.6 Const General: cooperative, comfortable, no acute distress, well developed, alert, awake and Physically active Nutritional Appearance: well nourished and thin Orientation/consciousness: patient oriented x3 Limitations: no limitations HEENT Head: Yes normocephalic and Yes atraumatic Neck Neck: Yes trachea midline, Yes supple and Yes no JVD Resp Effort & Inspection: normal respiratory effort Auscultation: clear to auscultation bilaterally Cardio Jugular venous distension: no JVD Palpation: normal PMI Rate: regular rate Rhythm: abnormal rhythm with ectopic beats Heart sounds: S1 normal heart sound present, S2 normal heart sound present, no click, no gallops, no murmurs and no rubs GI Auscultation: normal bowel sounds Skin General skin exam: no rashes or lesions noted Neuro General: patient oriented x3 and no focal motor deficits Extrem General: Yes no clubbing, cyanosis or edema Objective Labs and Meds 05/21/23 05:31 05/21/23 05:31 Progress Note: A&P Assessment and plan (1) POTS (postural orthostatic tachycardia syndrome): Status: Acute Assessment and Plan: Patient still has orthostatic tachycardia and actually orthostatic higher blood pressure and supine low blood pressure low heart rate. This does raise the possibility of pheochromocytoma. Metanephrine levels are pending. However she is much improved in symptomatology with initiation fludrocortisone and midodrine therapy. Will continue the same and increase midodrine to 5 mg t.i.d. to be taken before her meals. Advised to continue maintain high levels of water and salt intake and continue with Florinef 0.1 mg daily. Continue management of seizures as per before. Will follow up in the clinic in 7-10 days after Holter monitor and possibly head-up tilt-table test. Patient has been quite complex in management and response to therapy has been partial. Possibility of recurrent episodes was discussed with the patient. Goals of therapy were discussed. Advised to avoid stop prolonged upright postures. But I would encourage her to continue participate intermittently in walking exercises around the house. If she gets symptoms she is advised to seek sitting or more likely supine position. Will follow with her as outpatient. Time Spent With Patient Time: Total time managing care of this patient today ____ minutes. Progress Note: Quality Stroke Does the patient have a stroke diagnosis?: No Procedures Date of Service Date of Service: 05/22/23
[2023-05-22] MEDS: Enoxaparin Sodium 40 MG/0.4 ML SYRINGE SUBCUT (13:00)
--- NOTE | 2023-05-22 13:49 | HO.PM.IMPN ---
Subjective Subjective Date of Service: 05/22/23 Interval History: Continues to be tachycardic when standing although did ambulate with staff today. Plasma metanephrines pending. No acute issues or complaints at this time Review of Systems Denies chest pain Denies shortness of breath Denies nausea vomiting diarrhea Denies fever chills Physical Exam Vital Signs: Vital Signs: Last Vital Signs Temp 98.5 F 05/22/23 11:39 Pulse 61 05/22/23 11:39 Resp 18 05/22/23 11:39 BP 98/55 L 05/22/23 11:39 Pulse Ox 100 05/22/23 11:39 O2 Del Method Room Air 05/22/23 07:33 BMI result Body Mass Index 22.6 Const: Other: Awake alert oriented x3; (Belizean-speaking all information via medical interpreter) Resp: Other: Clear to auscultation bilaterally no rales rhonchi or wheezes Cardio: Other: No S4; positive S1-S2; no S3 murmurs rubs or gallops GI: Other: Soft nontender nondistended normoactive bowel sounds Neuro: Other: Cranial nerves 2-12 grossly intact as tested. Motor is 5/5 extremities. Sensation is intact. Cognition appropriate Extrem: Other: No edema bilaterally Objective Data Active Medications Acetaminophen (Acetaminophen 325 Mg Tablet) 650 mg PO Q6H PRN PRN Reason: Pain, Mild (Pain Scale 1-3) Last Admin: 05/20/23 02:53 Dose: 650 mg Documented By: IRENA Ascorbic Acid (Ascorbic Acid 500 Mg Tablet) 1,000 mg PO DAILY [facility] Last Admin: 05/22/23 08:13 Dose: 1,000 mg Documented By: TAMMY Benzonatate (Benzonatate 100 Mg Capsule) 100 mg PO TID PRN PRN Reason: Cough Docusate Sodium (Docusate Sodium 100 Mg Capsule) 100 mg PO DAILY PRN PRN Reason: Constipation Enoxaparin Sodium (Enoxaparin Sodium 40 Mg/0.4 Ml Syringe) 40 mg SUBCUT Q24H [facility] Last Admin: 05/22/23 13:00 Dose: 40 mg Documented By: TAMMY Levetiracetam (Levetiracetam 500 Mg Tablet) 1,500 mg PO BID [facility] Last Admin: 05/22/23 08:12 Dose: 1,500 mg Documented By: TAMMY Magnesium Oxide (Magnesium Oxide 400 Mg Tablet) 400 mg PO DAILY [facility] Last Admin: 05/22/23 08:12 Dose: 400 mg Documented By: TAMMY Melatonin (Melatonin 3 Mg Tablet) 6 mg PO BEDTIME PRN PRN Reason: Insomnia Metoprolol Tartrate (Metoprolol Tartrate 12.5 Mg Halftab) 12.5 mg PO BID [facility]; Protocol Last Admin: 05/22/23 09:55 Dose: Not Given Documented By: TAMMY Non-Admin Reason: HR <60 Midodrine (Midodrine Hcl 2.5 Mg Tablet) 2.5 mg PO TID [facility] Last Admin: 05/22/23 08:13 Dose: 2.5 mg Documented By: TAMMY Ondansetron HCl (Ondansetron Hcl 4 Mg/2 Ml Vial) 4 mg IVPUSH Q8H PRN PRN Reason: Nausea and Vomiting Sodium Chloride (0.9 % Sodium Chloride Flush 3 Ml Syringe) 3 ml IVFLUSH QSHIFT [facility] Last Admin: 05/22/23 08:14 Dose: 3 ml Documented By: TAMMY Topiramate (Topiramate 100 Mg Tablet) 200 mg PO BID [facility] Last Admin: 05/22/23 08:14 Dose: 200 mg Documented By: TAMMY Labs 05/21/23 05:31 05/21/23 05:31 Assessment and Plan (1) POTS (postural orthostatic tachycardia syndrome): Status: Acute (2) Seizure disorder: Status: Acute Plan Pt is a 27-year-old [place]an-speaking female with a PMH significant for?microcytic anemia, menorrhagia, and seizure disorder who presents to the ED with?lightheadedness, dizziness, tachycardia with standing. Seen by Cardiology. . . Plan implemented 1.Question of POTS -no response to fluid challenge x4 L over 48 hours -Midodrine 2.5mg TICAC with minimal improvement overall -TSH normal/metanephrines (serum) pending. . . If positive will need confirmation with urine studies -2D echo unremarkable -further plans based on forthcoming data 2.Seizure disorder -no noted seizure activity since admission -continue Keppra -follow clinically 3.Hx of microcytic anemia -on oral iron therapy -hemoglobin stable -follow daily CBC Full Code Lovenox Patient requires ongoing hospitalization for volume repletion and continued workup of orthostatic tachycardia. She also requires specialist consult and ongoing follow-up with specialist. Given limited changed since presenting complaints, needs to remain inpatient pending identification of culprit responsible for symptoms Quality Stroke Does the patient have a stroke diagnosis?: No VTE Prior VTE?: No VTE Risk Level:: Medical - moderate - high VTE Device Contraindication: Treatment Not Indicated VTE Drug Contraindication: N/A - Med Ordered
[2023-05-22] MEDS: Fludrocortisone Acetate 0.1 MG TABLET PO (14:05)
[2023-05-22] MEDS: Midodrine HCl 5 MG TABLET PO ×2 (14:55→20:53)
[2023-05-22] MEDS: Metoprolol Tartrate 12.5 MG HALFTAB PO (20:53)
[2023-05-23 04:00] VITALS: BP 98/44; PULSE 60; RESP 16; TEMP 36
[2023-05-23 07:45] VITALS: BP 99/58; PULSE 61; RESP 15; TEMP 36.8; O2SAT 100
[2023-05-23 07:55] VITALS: BP 103/56; PULSE 57
[2023-05-23 08:15] LABS: MANUAL DIFF FLAG NO
[2023-05-23 08:21] LABS: Basophils Percent Auto 0.3 % (0-2); Eosinophils Absolute Auto 0.2 X10*3/uL (0.0-0.4); Eosinophils Percent Auto 2.1 % (0-4); Hematocrit 35.7 % (37.0-47.0); Hemoglobin 12.6 g/dl (12.0-16.0); Imm Gran Abs Auto 0.01 X10*3/uL (0.00-0.03); Imm Gran Pct Auto 0.1 % (0.0-0.4); Lymphocytes Absolute Auto 3.4 X10*3/uL (1.2-4.9); Lymphocytes Percent Auto 43.9 % (20-40); Mean Corpuscular HGB Conc 35.3 g/dl (31.0-35.0); Mean Corpuscular Hemoglobin 26.8 pg (27.0-33.0); Mean Platelet Volume 11.7 fL (9.4-12.3); Monocytes Absolute Auto 0.6 X10*3/uL (0.1-1.2); Monocytes Percent Auto 8.3 % (2-11); Neutrophils Absolute Auto 3.5 x10*3/uL (2.0-8.3); Neutrophils Percent Auto 45.3 % (45-73); Platelet Count 233 X10*3/uL (160-400); Red Cell Distribution Width 12.7 % (11.0-16.0); White Blood Count 7.7 X10*3/uL (4.8-10.8)
[2023-05-23 08:43] LABS: Alanine Aminotransferase 30 U/L (0-31); Albumin Level 4.1 g/dL (3.5-5.0); Alkaline Phosphatase 39 U/L (39-117); Anion Gap 9 (12-20); Aspartate Amino Transferase 32 U/L (5-31); Bilirubin Total 0.7 mg/dL (0.0-1.0); Blood Urea Nitrogen 10 mg/dL (9-16); Calcium 9.3 mg/dL (8.4-10.2); Carbon Dioxide 19 mmol/L (22-29); Chloride 116 mmol/L (96-108); Creatinine Clr Calc Pharmacy 89.5; Estimated Glomerular Filt Rate > 60; Glucose Fasting 86 mg/dL (60-99); Potassium 4.1 mmol/L (3.3-5.1); Sodium 140 mmol/L (135-145); Total Protein 7.3 g/dL (6.5-8.0)
[2023-05-23] MEDS: Ascorbic Acid 500 MG TABLET 1000 MG PO (08:45)
[2023-05-23] MEDS: Magnesium Oxide 400 MG TABLET PO (08:45)
[2023-05-23] MEDS: levETIRAcetam 500 MG TABLET 1500 MG PO (08:45)
[2023-05-23] MEDS: Fludrocortisone Acetate 0.1 MG TABLET PO (08:46)
[2023-05-23] MEDS: Topiramate 100 MG TABLET 200 MG PO (08:46)
[2023-05-23] MEDS: Midodrine HCl 5 MG TABLET PO (08:46)
[2023-05-23] MEDS: 0.9 % Sodium Chloride Flush 3 ML SYRINGE IVFLUSH (08:50)
[2023-05-23 09:16] VITALS: BP 102/56; PULSE 80
[2023-05-23 09:17] VITALS: BP 108/66; PULSE 112
[2023-05-23] MEDS: Metoprolol Tartrate 12.5 MG HALFTAB PO (10:18)
--- NOTE | 2023-05-23 10:31 | MHC.CM.PN ---
Pt is medically cleared for D/C home self-care with family support. Pts cousin will transport her home.
[2023-05-23 10:38] LABS: Hematocrit 37.2 % (37.0-47.0); Hemoglobin 12.9 g/dl (12.0-16.0); Mean Corpuscular HGB Conc 34.7 g/dl (31.0-35.0); Mean Corpuscular Hemoglobin 26.8 pg (27.0-33.0); Mean Corpuscular Volume 77.2 fL (80.0-98.0); Mean Platelet Volume 13.3 fL (9.4-12.3); PLT CLUMP 1; Red Blood Count 4.82 X10*6/uL (4.20-5.50); Red Cell Distribution Width 12.9 % (11.0-16.0)
[2023-05-23 10:39] LABS: Anion Gap 12 (12-20); Blood Urea Nitrogen 10 mg/dL (9-16); Calcium 9.4 mg/dL (8.4-10.2); Carbon Dioxide 17 mmol/L (22-29); Chloride 115 mmol/L (96-108); Estimated Glomerular Filt Rate > 60; Glucose Random 85 mg/dL (60-115); Potassium 3.7 mmol/L (3.3-5.1); Sodium 140 mmol/L (135-145)
--- NOTE | 2023-05-23 10:52 | PM.PNCARD ---
Subjective Subjective Date of Service: 05/23/23 Principal diagnosis: Postural tachycardia Interval history: Patient had some lightheadedness when she went to the bathroom and came back. She said heart rate also went up. Currently feeling well and wants to go home. Review of Systems Eyes: Reports no additional eye complaints Reports system reviewed and no additional complaints, except as documented Cardiovascular: Reports rapid heart rate and Reports lightheadedness Respiratory: Reports no additional respiratory complaints Gastrointestinal: Reports no additional gastrointestinal complaints Genitourinary: Reports no additional female genitourinary complaints Musculoskeletal: Reports no additional musculoskeletal complaints Physical Exam Vital Signs: Last Vital Signs Temp 98.3 F 05/23/23 07:45 Pulse 112 H 05/23/23 09:17 Resp 15 05/23/23 07:45 BP 108/66 05/23/23 09:17 Pulse Ox 100 05/23/23 07:45 O2 Del Method Room Air 05/23/23 07:45 BMI result Body Mass Index 22.6 Const General: cooperative, comfortable, no acute distress, well developed, alert, awake and Physically active Nutritional Appearance: well nourished and thin Orientation/consciousness: patient oriented x3 Limitations: no limitations HEENT Head: Yes normocephalic and Yes atraumatic Neck Neck: Yes trachea midline, Yes supple and Yes no JVD Resp Effort & Inspection: normal respiratory effort Auscultation: clear to auscultation bilaterally Cardio Jugular venous distension: no JVD Palpation: normal PMI Rate: regular rate Rhythm: abnormal rhythm with ectopic beats Heart sounds: S1 normal heart sound present, S2 normal heart sound present, no click, no gallops, no murmurs and no rubs GI Auscultation: normal bowel sounds Skin General skin exam: no rashes or lesions noted Neuro General: patient oriented x3 and no focal motor deficits Extrem General: Yes no clubbing, cyanosis or edema Objective Labs and Meds 05/23/23 09:53 05/23/23 09:53 Lab results: Laboratory Results - last 24 hr 05/23/23 05/23/23 07:57 09:53 WBC 7.7 RBC 4.70 4.82 Hgb 12.6 12.9 Hct 35.7 L 37.2 MCV 76.0 L 77.2 L MCH 26.8 L 26.8 L MCHC 35.3 H 34.7 RDW 12.7 12.9 Plt Count 233 MPV 11.7 13.3 H Immature Gran % (Auto) 0.1 Neut % (Auto) 45.3 Lymph % (Auto) 43.9 H Finney % (Auto) 8.3 Eos % (Auto) 2.1 Baso % (Auto) 0.3 Lymph # (Auto) 3.4 Finney # (Auto) 0.6 Eos # (Auto) 0.2 Baso # (Auto) 0.0 Abs Immat Gran (auto) 0.01 Absolute Neuts (auto) 3.5 Absolute Nucleated RBC 0.000 0.000 Nucleated RBC % (auto) 0.0 0.0 Sodium 140 140 Potassium 4.1 3.7 Chloride 116 H 115 H Carbon Dioxide 19 L 17 L Anion Gap 9 L 12 BUN 10 10 Creatinine 0.74 0.69 Estim Creat Clear Calc 89.5 96.0 Estimated GFR > 60 > 60 Random Glucose 85 Fasting Glucose 86 Calcium 9.3 9.4 Total Bilirubin 0.7 AST 32 H ALT 30 Alkaline Phosphatase 39 Total Protein 7.3 Albumin 4.1 Progress Note: A&P Assessment and plan (1) POTS (postural orthostatic tachycardia syndrome): Status: Acute Assessment and Plan: Patient still symptomatic with minimal walking although advise her that she can be discharged home. Take precautions at home and when she gets her symptoms she has to either sit down or lie down. Also midodrine has been increased to 5 t.i.d. and would continue fludrocortisone 0.1 mg in addition to increase fluid and salt intake. Plasma metanephrine levels are pending. Patient can be discharged home. Will follow-up with outpatient Holter and tilt-table test. Will sign of the case at this point in time Time Spent With Patient Time: Total time managing care of this patient today ____ minutes. Progress Note: Quality Stroke Does the patient have a stroke diagnosis?: No Procedures Date of Service Date of Service: 05/23/23
--- NOTE | 2023-05-23 10:53 | PM.DS ---
DS: Providers Provider Date of Service: 05/23/23 Date of admission: 05/20/23 14:07 Date of discharge: 05/23/23 Primary care physician: DOYLE Rodrigues Consults: 05/20/23 09:23 Consult to Cardiology Stat Consulting Provider: [facility] Reason for consultation: orthostatic tachycardia Has provider been notified: Yes DS: Diagnosis Discharge Diagnosis (1) POTS (postural orthostatic tachycardia syndrome): Status: Acute (2) Near syncope: Status: Acute (3) Tachycardia: Status: Acute DS: Summary Hospital Course Hospital Course: From the history and physical by the admitting hospitalist, BIN Rivera, 05/19/23: Pt is a 27-year-old Telugu-speaking female with a PMH significant for?microcytic anemia, menorrhagia, and seizure disorder who presents to the ED with?lightheadedness, dizziness, tachycardia with standing. Patient states that symptoms began on 05/06/2023 when patient was in [place] on vacation visiting family. Patient presented to [facility] and apparently was admitted into the ICU for 3 days and then downgraded to the regular hospital floor for an additional day. Patient is not the best of historians and it is not entirely clear what she was treated or diagnosed with or if her symptoms then were different than what brought her in today. Records of patient's visit have been requested from the hospital but yet to be received. Pt presents today after worsening lightheadedness, dizziness, and palpitations when she stands, inability to tolerate standing or walking, and having a severe headache for the past 2 days. Also complains of tingling in her cheeks, and tingling and pain in both thighs. Denies chest pain/pressure. No shortness of breath. Denies fever, chills, nausea, vomiting, abdominal pain. In the ED initial orthostatics were unable to be completed with standing as patient became shaky and could not stand on her own. Heart rate jumped from 97 supine to 152 with standing. Repeat orthostatics were negative for hypotension, but again demonstrated heart rate elevation from 94 supine to 143 with standing. Labs were significant for slightly increased creatinine of 0.85 (up from 0.71 on 12/21/2021), otherwise largely unremarkable with no electrolyte imbalances. No leukocytosis. H&H stable and WNL at 14.3/39.6. CXR showed no acute cardiopulmonary process. CT?of head showed no acute intracranial process seen. EKG demonstrated sinus tachycardia of 101 with frequent PVCs and nonspecific T-wave abnormality, but no evidence of significant ST elevations or depressions. Pt was treated with ketorolac, IVF, and lorazepam. Pt will be admitted to the hospital under observation for treatment and further evaluation of possible POTS. The patient was admitted to the telemetry unit. She was noted to have orthostatic tachycardia but actually higher blood pressure when standing, raising possibility of pheochromocytoma. Plasma metanephrine levels were sent and are pending at the time of discharge. She was started on midodrine, metoprolol tartrate, and fludrocortisone with improvement in tachycardia and symptoms of lightheadedness. She was advised to maintain high levels of water and salt intake and to take midodrine, metoprolol tartrate, and fludrocortisone. She will follow up with Dr Ciro Vasquez from Cardiology in 7-10 days for Holter monitor and tilt-table testing. Time Attestation Total time managing care of this patient today: 35 mintues. Discharge coordination time: Greater than 30 minutes Quality: Safe Use of Opioids Does Pt have an Active Cancer Diagnosis on the Problem List?: No Quality: Stroke Does the patient have a stroke diagnosis?: No Physical Exam Vital Signs: Vital Signs: Last Vital Signs Temp 98.3 F 05/23/23 07:45 Pulse 112 H 05/23/23 09:17 Resp 15 05/23/23 07:45 BP 108/66 05/23/23 09:17 Pulse Ox 100 05/23/23 07:45 O2 Del Method Room Air 05/23/23 07:45 BMI result Body Mass Index 22.6 Gen: in no acute distress HEENT: sclera anicteric, moist mucus membranes Neck: supple Lungs: clear to auscultation bilaterally Heart: regular rate and rhythm [tachycardic with standing], no murmurs Abd: soft, non-tender, non-distended Ext: no edema Skin: warm/well-perfused Neuro: alert and oriented x3, no focal findings Psych: appropriate affect DS: Data Data Completed and Pending Completed studies during hospitalization [Text1]: Laboratory Results WBC 7.7 X10*3/uL (4.8-10.8) 05/23/23 07:57 RBC 4.82 X10*6/uL (4.20-5.50) 05/23/23 09:53 Hgb 12.9 g/dl (12.0-16.0) 05/23/23 09:53 Hct 37.2 % (37.0-47.0) 05/23/23 09:53 MCV 77.2 fL (80.0-98.0) L 05/23/23 09:53 MCH 26.8 pg (27.0-33.0) L 05/23/23 09:53 MCHC 34.7 g/dl (31.0-35.0) 05/23/23 09:53 RDW 12.9 % (11.0-16.0) 05/23/23 09:53 Plt Count 233 X10*3/uL (160-400) 05/23/23 07:57 MPV 13.3 fL (9.4-12.3) H 05/23/23 09:53 Immature Gran % (Auto) 0.1 % (0.0-0.4) 05/23/23 07:57 Neut % (Auto) 45.3 % (45-73) 05/23/23 07:57 Lymph % (Auto) 43.9 % (20-40) H 05/23/23 07:57 [place] % (Auto) 8.3 % (2-11) 05/23/23 07:57 Eos % (Auto) 2.1 % (0-4) 05/23/23 07:57 Baso % (Auto) 0.3 % (0-2) 05/23/23 07:57 Lymph # (Auto) 3.4 X10*3/uL (1.2-4.9) 05/23/23 07:57 [place] # (Auto) 0.6 X10*3/uL (0.1-1.2) 05/23/23 07:57 Eos # (Auto) 0.2 X10*3/uL (0.0-0.4) 05/23/23 07:57 Baso # (Auto) 0.0 X10*3/uL (0.0-0.2) 05/23/23 07:57 Abs Immat Gran (auto) 0.01 X10*3/uL (0.00-0.03) 05/23/23 07:57 Absolute Neuts (auto) 3.5 x10*3/uL (2.0-8.3) 05/23/23 07:57 Absolute Nucleated RBC 0.000 X10*3/uL (0.0-0.012) 05/23/23 09:53 Nucleated RBC % (auto) 0.0 /100WBC (0.0-0.2) 05/23/23 09:53 PT 12.4 SEC (11.1-13.3) 05/19/23 05:56 INR 1.0 (0.9-1.1) 05/19/23 05:56 APTT 32.6 SEC (26.0-36.4) 05/19/23 05:56 D-Dimer High Sensitivty < 150 NG/ML 05/19/23 05:56 Sodium 140 mmol/L (135-145) 05/23/23 09:53 Potassium 3.7 mmol/L (3.3-5.1) 05/23/23 09:53 Chloride 115 mmol/L (96-108) H 05/23/23 09:53 Carbon Dioxide 17 mmol/L (22-29) L 05/23/23 09:53 Anion Gap 12 (12-20) 05/23/23 09:53 BUN 10 mg/dL (9-16) 05/23/23 09:53 Creatinine 0.69 mg/dL (0.5-1.4) 05/23/23 09:53 Estim Creat Clear Calc 96.0 05/23/23 09:53 Estimated GFR > 60 05/23/23 09:53 POC Glucose 85 mg/dL (60-115) 05/19/23 05:48 Random Glucose 85 mg/dL (60-115) 05/23/23 09:53 Fasting Glucose 86 mg/dL (60-99) 05/23/23 07:57 Lactic Acid 0.8 mmol/L (0.5-2.0) 05/19/23 06:44 Calcium 9.4 mg/dL (8.4-10.2) 05/23/23 09:53 Magnesium 2.2 mg/dL (1.6-2.6) 05/19/23 05:56 Total Bilirubin 0.7 mg/dL (0.0-1.0) 05/23/23 07:57 AST 32 U/L (5-31) H 05/23/23 07:57 ALT 30 U/L (0-31) 05/23/23 07:57 Alkaline Phosphatase 39 U/L (39-117) 05/23/23 07:57 Total Creatine Kinase 45 U/L (26-140) 05/19/23 05:56 Troponin I High Sens < 2.7 ng/L (<3.5-17.0) 05/19/23 05:56 Total Protein 7.3 g/dL (6.5-8.0) 05/23/23 07:57 Albumin 4.1 g/dL (3.5-5.0) 05/23/23 07:57 TSH 1.32 uIU/mL (0.32-4.0) 05/21/23 05:31 Beta HCG, Quant < 2 mIU/mL 05/19/23 05:56 Urine Color Yellow 05/19/23 10:45 Urine Appearance Clear 05/19/23 10:45 Urine pH 5.5 (5.0-9.0) 05/19/23 10:45 Ur Specific [place] >= 1.030 (1.005-1.025) H 05/19/23 10:45 Urine Protein Negative mg/dL (Neg-Trace) 05/19/23 10:45 Urine Glucose (UA) Negative mg/dL (Negative) 05/19/23 10:45 Urine Ketones Trace mg/dL (Negative) 05/19/23 10:45 Urine Blood Negative (Negative) 05/19/23 10:45 Urine Nitrite Negative (Negative) 05/19/23 10:45 Ur Leukocyte Esterase Negative (Negative) 05/19/23 10:45 Urine RBC 3-5 /HPF (0-2) H 05/19/23 10:45 Urine WBC 0-5 /HPF (0-5) 05/19/23 10:45 Ur Squamous Epith Cells 3-5 /HPF (0-2) 05/19/23 10:45 Urine Bacteria None Seen (None Seen) 05/19/23 10:45 Hyaline Casts 0-2 /LPF (0-2) 05/19/23 10:45 Urine Opiates Screen Not Detected (Not Detect) 05/19/23 10:45 Urine Fentanyl Screen Not Detected (Not Detect) 05/19/23 10:45 Ur Barbiturates Screen Not Detected (Not Detect) 05/19/23 10:45 Valproic Acid < 12.5 mcg/mL (50.0-100.0) L 05/19/23 06:12 Ur Phencyclidine Scrn Not Detected (Not Detect) 05/19/23 10:45 Ur Amphetamines Screen Not Detected (Not Detect) 05/19/23 10:45 U Benzodiazepines Scrn Not Detected (Not Detect) 05/19/23 10:45 Urine Cocaine Screen Not Detected (Not Detect) 05/19/23 10:45 U Marijuana (THC) Screen Not Detected (Not Detect) 05/19/23 10:45 Ethyl Alcohol < 10 mg/dL 05/19/23 05:56 Impressions Chest X-Ray 05/19/23 06:23 IMPRESSION: Unremarkable examination. Head CT 05/19/23 07:53 IMPRESSION: No acute intracranial process seen. TTE 05/20/23 Conclusions: - Normal study Findings Left Ventricle Normal left ventricular size, thickness, and systolic function. The visually estimated ejection fraction is between 60-65%. Spectral Doppler is indicative of a normal filling pattern. Right Ventricle Normal right ventricular cavity size and systolic function. Atria Both atria are normal in size. There is no evidence of interatrial shunt. Aortic Valve Normal aortic valve structure and function. There is no aortic valve stenosis. There is no aortic valve regurgitation. Mitral Valve Normal mitral valve structure and function. There is trace mitral valve regurgitation. There is no mitral valve stenosis. Pulmonic Valve The pulmonic valve is likely normal. Tricuspid Valve Normal tricuspid valve structure. There is trace tricuspid valve regurgitation. The right ventricular systolic pressure is normal. The right ventricular systolic pressure is 18 mmHg. Normal right atrial pressure. There is no evidence of pulmonary hypertension. Great Vessels All visible segments of the aorta are normal in size. The visualized portions of the pulmonary artery and branches are normal. Venous The inferior vena cava is normal in size and collapses greater than 50% with inspiration. Pericardium/Pleural There is no evidence of pericardial effusion. Prior Study Comparison No prior study available for comparison. Discharge Plan Discharge Anticipated Discharge Date/Time: 05/23/23 10:49 Patient Disposition: Home, Self-Care Discharge Diagnosis: Postural Orthostatic Tachycardia Syndrome (POTS) Referrals: Mery Masters FNP [Primary Care Provider] - 1 Week Ciro Vasquez MD [Physician] - 1 Week Discharge Medications: New midodrine 5 mg Tablet 5 mg PO TID Qty: 90 0RF fludrocortisone 0.1 mg Tablet 0.1 mg PO DAILY Qty: 30 0RF metoprolol tartrate 25 mg tablet 12.5 mg PO BID Qty: 30 0RF Continued levetiracetam [Keppra] 1,000 mg Tablet 1,500 mg PO Q12H ascorbic acid (vitamin C) [Vitamin C] 1,000 mg Tablet 1,000 mg PO DAILY magnesium oxide 400 mg (241.3 mg magnesium) Tablet 400 mg PO DAILY topiramate 200 mg Tablet 200 mg PO BID Discharge Orders: Discharge Order (Routine); Ordered 05/23/23 Ordered By: Lidia Chung Diet: Advance to usual diet Activity on Discharge: As tolerated Stand Alone Forms: Patient Portal Discharge page Care Plan Goals: Syncope prevention Management of POTS symptoms Health Concerns: Postural Orthostatic Tachycardia Syndrome (POTS) Plan of Treatment: fludrocortisone 0.1 mg every morning metoprolol tartrate 12.5 mg [half of a 25 mg tab] twice daily midodrine 5 mg 3x a day maintain high levels of salt/sodium and water intake follow up with [facility] Cardiology in 1-2 weeks with Holter monitoring and possibly tilt-table testing Please follow up with your primary care doctor within 1 week. Return to the hospital if you experience recurrent or worsening symptoms. Assessment: See Discharge Summary.
[2023-05-23 11:03] LABS: White Blood Count 6.1 X10*3/uL (4.8-10.8)
[2023-05-23 11:27] VITALS: BP 92/60; PULSE 70; RESP 15; TEMP 36.8; O2SAT 100
[2023-05-26 15:49] LABS: Metanephrine, Free 27 pg/mL (<=57); Normetanephrines, Free 40 pg/mL (<=148); Total Metanephrine, Free 67 pg/mL (<=205)
== END 2023-05-23 11:44 | disposition home or self-care (01) | DRG 48 ==
LOC: HO.ED 11:23 → HO.EDOVER 12:44 → HO.IMC 14:55
PROVIDERS: Hospitalist; Physician Assistant; Admitting Provider Student in an Organized Health Care Education/Training Program; Emergency Provider Emergency Medicine Emergency Medical Services; PCP Registered Nurse; Visit Provider Family Medicine
DX: G90.A Postural orthostatic tachycardia syndrome [POTS] (principal); D50.9 Iron deficiency anemia, unspecified; G40.909 Epilepsy, unspecified, not intractable, without status epilepticus; Z79.899 Other long term (current) drug therapy
CPT/HCPCS: 36415; 70450; 71045; 80048; 80053; 80164; 80307; 81001; 82550; 82947; 83605; 83735; 83835; 84443; 84484; 84702; 85025; 85027; 85379; 85610; 85730; 93005; 93306; 97161; 99285; J1650; J1885; J2060; J7120

== ENCOUNTER → 2023-05-19 05:49 | Outpatient (BNV) | payer SELFPAY | PROVIDERS: Admitting Provider Student in an Organized Health Care Education/Training Program; Emergency Provider Emergency Medicine Emergency Medical Services; PCP Registered Nurse; Visit Provider Internal Medicine Cardiovascular Disease | DX: I49.3 Ventricular premature depolarization (principal) | CPT/HCPCS: 93010 ==

== ENCOUNTER → 2023-05-19 12:19 | Outpatient (BNV) | payer SELFPAY | PROVIDERS: Admitting Provider Student in an Organized Health Care Education/Training Program; Emergency Provider Emergency Medicine Emergency Medical Services; PCP Registered Nurse; Visit Provider Internal Medicine Cardiovascular Disease | DX: G90.A Postural orthostatic tachycardia syndrome [POTS] (principal) | CPT/HCPCS: 99222; 99233 ==

== ENCOUNTER → 2023-05-19 12:19 | Outpatient (BNV) | payer SELFPAY | PROVIDERS: Admitting Provider Student in an Organized Health Care Education/Training Program; Emergency Provider Emergency Medicine Emergency Medical Services; PCP Registered Nurse; Visit Provider Student in an Organized Health Care Education/Training Program | DX: G90.A Postural orthostatic tachycardia syndrome [POTS] (principal); G40.909 Epilepsy, unspecified, not intractable, without status epilepticus | CPT/HCPCS: 99222; 99233; 99239 ==

== ENCOUNTER → 2023-05-20 07:00 | Outpatient (BNV) | payer SELFPAY | PROVIDERS: Admitting Provider Student in an Organized Health Care Education/Training Program; Emergency Provider Emergency Medicine Emergency Medical Services; PCP Registered Nurse; Visit Provider Internal Medicine Cardiovascular Disease | DX: R55 Syncope and collapse (principal) | CPT/HCPCS: 93306 ==

== ENCOUNTER → 2023-05-31 12:58 | Outpatient (REF) | payer MEDICAID, OTHER, SELFPAY | LOC: HO.CARD 12:58 | PROVIDERS: PCP Registered Nurse; Visit Provider Internal Medicine Cardiovascular Disease | DX: R00.0 Tachycardia, unspecified (principal); R55 Syncope and collapse; G90.A Postural orthostatic tachycardia syndrome [POTS] | CPT/HCPCS: 93242 ==

== ENCOUNTER → 2023-05-31 13:00 | Outpatient (BNV) | payer SELFPAY | PROVIDERS: PCP Registered Nurse; Visit Provider Internal Medicine Cardiovascular Disease | DX: R00.1 Bradycardia, unspecified (principal) | CPT/HCPCS: 93227 ==

== ENCOUNTER 2023-06-17 13:33 | Outpatient (AMB) | payer SELFPAY ==
[2023-06-17 13:38] VITALS: BP 90/62; PULSE 77; BMI 23.1
--- NOTE | 2023-06-17 13:38 | A.OFFVIS_ITS ---
Intake Vital Signs 06/17/23 13:38 Height 5 ft 2 in Weight 126 lb 1.671 oz BMI 23.1 BP 90/62 Blood Pressure Location Lt brachial Position Sitting Pulse 77 Intake Visit Reasons: Follow-up Traffic Superintendent Required: Yes Traffic Superintendent Language: Box Blank Machine Operator Name: amy astorga [id number] Allergies No Known Allergies Allergy (Verified 12/21/21 13:03) Medication List - Last Reconciled 06/17/23 by NASEEM Andino ascorbic acid (vitamin C) (Vitamin C) 1,000 mg PO DAILY blood pressure monitor As directed fludrocortisone 0.1 mg PO DAILY levetiracetam (Keppra) 1,500 mg PO Q12H magnesium oxide 400 mg PO DAILY metoprolol tartrate 12.5 mg (1/2 x 25 mg) PO BID midodrine 5 mg PO TID topiramate 200 mg PO BID HPI Follow-up HPI Details Patsy is a 27-year-old female with history of tachycardia and presyncope who was recently admitted to [facility] for evaluation of symptoms. She was evaluated by Dr. Vasquez for cardiology and thought to have postural orthostatic tachycardic syndrome. She was started on metoprolol, midodrine and fludrocortisone. She now presents for follow-up. Today she reports that she has been feeling much better on the medications. She has had some lightheadedness but no presyncope or syncope. She is noticing less tachycardia. She will be having her tilt-table test next month. No chest discomfort, shortness of breath, PND, orthopnea or edema. Reports being active throughout the day. Takes meds as directed. [facility] Medical History (Updated 06/17/23 @ 16:39 by Isis Stein, NAREN-C) Seizure disorder delivery delivered Chronic headaches Heavy menstrual bleeding LIANA (iron deficiency anemia) Seizures Surgical History History of delivery Family History Brother Diabetes mellitus, type 2 Father Diabetes mellitus type 2, controlled Paternal Grandmother Breast cancer Social History Household Members: Children Housing: House Are you a primary animal care specialist to a significant other at home: No Do you presently have visiting nurse or other home services: No Alcohol intake: never Patient Tobacco Use Status: Never used Tobacco service: No Current occupational status: unemployed Female Reproductive History Menstrual Age of Menarche: 12 Review of Systems Const All systems reviewed & are unremarkable except as noted in HPI and below ENT Reports dizziness Card Denies chest pain, Denies chest pain at rest, Denies chest pain with activity, Reports rapid heart rate, Denies pedal edema, Denies edema, Denies leg edema, Denies lightheadedness, Denies palpitations, Denies dyspnea, Denies dyspnea on exertion and Denies orthopnea Resp Denies cough, Denies dyspnea and Denies dyspnea on exertion GI Denies hematochezia and Denies change in stool character Musc Denies abnormal gait, Denies limited range of motion, Denies muscle cramps, Denies muscle weakness, Denies numbness, Denies radiating pain into limb, Denies stiffness and Denies tingling Neuro Denies abnormal gait, Reports dizziness, Denies numbness and Denies tingling Endo Denies palpitations Physical Exam Vital Signs: Last Vital Signs Pulse 77 06/17/23 13:38 BP 90/62 06/17/23 13:38 BMI result Body Mass Index 23.1 Const General: cooperative, healthy appearing, comfortable and no acute distress Orientation/consciousness: patient oriented x3 HEENT Head: Yes normal to inspection Neck Neck: Yes normal visual inspection and Yes no JVD Resp Effort & Inspection: normal respiratory effort Auscultation: clear to auscultation bilaterally, no crackles, no rales, no rhonchi and no wheezes Cardio Jugular venous distension: no JVD Rate: regular rate Rhythm: regular rhythm Heart sounds: S1 normal heart sound present, S2 normal heart sound present, no gallops, no murmurs and no rubs Peripheral pulses: Peripheral pulses 2+ throughout GI Inspection: Yes normal to inspection Neuro General: patient oriented x3 Extrem General: Yes normal to inspection, No no pedal edema and No calf tenderness Psych Appearance: grossly normal Mental Status: mental status grossly normal Speech and movement: Normal speech and movement present Assessment & Plan Assessment & Plan (1) POTS (postural orthostatic tachycardia syndrome): Code(s): G90.A - Postural orthostatic tachycardia syndrome [POTS] Plan: History of having presyncope, syncope, tachycardia -symptoms suggestive of postural orthostatic tachycardic syndrome. Recent [facility] admission for symptoms of dizziness and syncope. CTA of the head showed no acute findings. Echocardiogram done 05/20/2023 showed EF 60-65%, normal RV, normal valves and no wall motion abnormalities. Noted to have tachycardia with heart rate 130 to 140s. Orthostatic hypotension present. She was treated with IV fluids and evaluated by Dr. Vasquez for cardiology. Symptoms suggestive of POTS. During her admission she was started on medication management including midodrine, fludrocortisone and low-dose metoprolol. Outpatient Holter done on 05/31/2023 for 2 days shows sinus rhythm with average heart rate 63, sinus bradycardia 56% of the time heart rate less than 60, PVCs 6.3%, one 3 beat NSVT. Outpatient tilt-table test was ordered however not completed as of yet. She has an appointment next month. Today she reports she has been feeling better on the medications. She has had some lightheadedness but no presyncope, syncope, tachycardia. She has not orthostatic on exam today, checked by me, blood pressure 102/68 with both sitting and standing. She has increased her fluid and salt intake. Reviewed benefits of compression stocking use and gave her a pair from our office stock. Diagnosis of POTS discussed. Continue on current med management. Instructed on recognizing symptoms and sit/lay down if she becomes lightheaded or presyncopal, continue increase fluid and salt. Emergency care if needed. Cardiology follow-up in a few months to re-evaluate condition. Plan to call her with tilt-table test results when available. (2) Near syncope: Code(s): R55 - Syncope and collapse Plan: As above (3) Tachycardia: Code(s): R00.0 - Tachycardia, unspecified Plan: As above (4) Hospital discharge follow-up: Code(s): Z09 - Encounter for follow-up examination after completed treatment for conditions other than malignant neoplasm Plan: As above Plan Time spent on chart review, documentation, interview assess Medications: New blood pressure monitor As directed 1 ea 0RF orthostatic hypotension G90.A - Postural orthostatic tachycardia syndrome [POTS], R55 - Syncope and collapse Changed From midodrine 5 mg PO TID 90 tabs 0RF To midodrine 5 mg PO TID 90 days 270 tabs 1RF Refilled fludrocortisone 0.1 mg PO DAILY 90 tabs 1RF metoprolol tartrate 12.5 mg (1/2 x 25 mg) PO BID 90 tabs 1RF Coding Level of Care Code Est Pt Level 4 (58699) Diagnoses POTS (postural orthostatic tachycardia syndrome) G90.A Near syncope R55 Tachycardia R00.0 Hospital discharge follow-up Z09 Time Spent (min) 28
== END 2023-06-17 14:20 | disposition home or self-care (01) ==
PROVIDERS: PCP Registered Nurse; Visit Provider Nurse Practitioner Family
DX: G90.A Postural orthostatic tachycardia syndrome [POTS] (principal); R55 Syncope and collapse; R00.0 Tachycardia, unspecified; Z09 Encounter for follow-up examination after completed treatment for conditions other than malignant neoplasm
CPT/HCPCS: 99212; 99214

== ENCOUNTER → 2023-06-17 13:33 | Outpatient (BNVA) | payer MEDICAID, SELFPAY | PROVIDERS: PCP Registered Nurse; Visit Provider Nurse Practitioner Family ==

== ENCOUNTER 2023-07-26 10:27 | Outpatient (REF) | payer MEDICAID, SELFPAY ==
[2023-07-26 11:35] LABS: MANUAL DIFF FLAG NO
[2023-07-26 11:42] LABS: Basophils Percent Auto 0.2 % (0-2); Eosinophils Absolute Auto 0.1 X10*3/uL (0.0-0.4); Eosinophils Percent Auto 0.7 % (0-4); Hematocrit 37.6 % (37.0-47.0); Imm Gran Abs Auto 0.02 X10*3/uL (0.00-0.03); Imm Gran Pct Auto 0.2 % (0.0-0.4); Lymphocytes Absolute Auto 2.5 X10*3/uL (1.2-4.9); Lymphocytes Percent Auto 29.3 % (20-40); Mean Corpuscular HGB Conc 34.6 g/dl (31.0-35.0); Mean Corpuscular Hemoglobin 26.8 pg (27.0-33.0); Mean Corpuscular Volume 77.5 fL (80.0-98.0); Mean Platelet Volume 12.1 fL (9.4-12.3); Monocytes Absolute Auto 0.7 X10*3/uL (0.1-1.2); Monocytes Percent Auto 7.9 % (2-11); Neutrophils Absolute Auto 5.2 x10*3/uL (2.0-8.3); Neutrophils Percent Auto 61.7 % (45-73); Platelet Count 281 X10*3/uL (160-400); Red Blood Count 4.85 X10*6/uL (4.20-5.50); White Blood Count 8.5 X10*3/uL (4.8-10.8)
[2023-07-26 12:11] LABS: Ferritin 77 ng/mL (10-122); Iron 121 mcg/dL (30-160); Percent Iron Saturation 43 % (15-50); Total Iron Binding Capacity 280 mcg/dL (228-428); Unsaturated Iron Binding 159 ug/dL
== END 2023-07-26 10:28 | disposition home or self-care (01) ==
LOC: HO.HHCL 10:27
PROVIDERS: Visit Provider Registered Nurse
DX: D50.9 Iron deficiency anemia, unspecified (principal)
CPT/HCPCS: 36415; 82728; 83540; 85025

== ENCOUNTER 2023-08-30 10:36 | Outpatient (AMB) | payer MEDICAID, SELFPAY ==
--- NOTE | 2023-08-30 10:41 | A.OFFVIS_ITS ---
Intake Vital Signs 08/30/23 10:42 08/30/23 10:49 08/30/23 10:50 Height 5 ft 2 in Weight 123 lb 7.342 oz BMI 22.6 BP 117/68 126/79 110/77 Blood Pressure Location Lt brachial Lt brachial Lt brachial Position Supine Sitting Standing Pulse 83 88 102 H Intake Visit Reasons: follow-up POTS need orthostatic bp Intake Note: follow up Supply Chain Coordinator Required: Yes Supply Chain Coordinator Language: Plastic Outfitter Name: [id number] Costa Accompanied by: Family/Other Allergies No Known Allergies Allergy (Verified 08/30/23 10:42) Medication List - Last Reconciled 08/30/23 by Ciro Vasquez MD ascorbic acid (vitamin C) (Vitamin C) 1,000 mg PO DAILY blood pressure monitor As directed fludrocortisone 0.1 mg PO DAILY levetiracetam (Keppra) 1,500 mg PO Q12H magnesium oxide 400 mg PO DAILY metoprolol tartrate 12.5 mg (1/2 x 25 mg) PO BID midodrine 5 mg PO TID 90 days topiramate 200 mg PO BID HPI HPI Comments History of Present Illness Details Patsy comes for follow-up. History was obtained with help of ocean import representative. She says she continues to have symptoms of lightheadedness and 2 days ago she had passed out. She said usually this happens when she is standing and walking around for long period of time. She also complains of exertional shortness of breath. However her condition has significantly improved compared to when she was hospitalized in May when she could not even get out of bed without getting lightheadedness and passing out with low blood pressures. She is taking all her medications. She says she is drinking a lot of water and also has increased her salt intake although she could not quantify for me. She is taking Florinef as well as midodrine at this point in time. She denies any orthopnea, PND, leg edema. No exertional chest pain. No prolonged palpitations, lightheadedness, syncope. [facility] Medical History Seizure disorder delivery delivered Chronic headaches Heavy menstrual bleeding LIANA (iron deficiency anemia) Seizures Surgical History History of delivery Family History Brother Diabetes mellitus, type 2 Father Diabetes mellitus type 2, controlled Paternal Grandmother Breast cancer Social History Household Members: Children Housing: House Are you a primary day care attendant to a significant other at home: No Do you presently have visiting nurse or other home services: No Alcohol intake: never Patient Tobacco Use Status: Never used Tobacco service: No Current occupational status: unemployed Female Reproductive History Menstrual Age of Menarche: 12 Review of Systems Const Denies weakness ENT Reports dizziness Card Denies chest pain with activity, Denies syncope, Denies rapid heart rate, Denies pedal edema, Denies edema, Denies leg edema, Reports lightheadedness, Denies palpitations, Denies orthopnea and Reports other (Passing out) Resp Denies cough GI Denies hematochezia and Denies change in stool character Musc Denies abnormal gait, Denies muscle cramps, Denies muscle weakness, Denies numbness, Denies radiating pain into limb and Denies tingling Neuro Denies abnormal gait, Reports dizziness, Denies syncope, Denies numbness, Denies tingling and Denies weakness Endo Denies palpitations Physical Exam Vital Signs: Last Vital Signs Pulse 102 H 08/30/23 10:50 BP 110/77 08/30/23 10:50 BMI result Body Mass Index 22.6 Noted to have mild orthostatic tachycardia with standing up from heart rate in the 80s with lying and sitting 205 with standing up Const General: cooperative, healthy appearing, comfortable and no acute distress Orientation/consciousness: patient oriented x3 HEENT Head: Yes normal to inspection Neck Neck: Yes normal visual inspection and Yes no JVD Resp Effort & Inspection: normal respiratory effort Auscultation: clear to auscultation bilaterally, no crackles, no rales, no rhonchi and no wheezes Cardio Jugular venous distension: no JVD Rate: regular rate Rhythm: regular rhythm Heart sounds: S1 normal heart sound present, S2 normal heart sound present, no gallops, no murmurs and no rubs Peripheral pulses: Peripheral pulses 2+ throughout GI Inspection: Yes normal to inspection Neuro General: patient oriented x3 Extrem General: Yes normal to inspection, No no pedal edema and No calf tenderness Psych Appearance: grossly normal Mental Status: mental status grossly normal Speech and movement: Normal speech and movement present Assessment & Plan Assessment & Plan (1) POTS (postural orthostatic tachycardia syndrome): Code(s): G90.A - Postural orthostatic tachycardia syndrome [POTS] Plan: Patient with persistent symptoms of lightheadedness or passing out after a prolonged ambulation. Her overall functionality as significantly improved compared to her hospitalization May. I discussed this with her with help of ocean import representative. However she remains symptomatic and this limits her lifestyle. She has not had any seizure disorder. I have suggested to increase midodrine to 10 mg t.i.d. and continue with fludrocortisone. I have also advised her to c henrik to push a lot more fluids and lot more salt. She has very difficult to treat autonomic dysfunction but has done much better since initiation of therapy. Advised to continue to participate in physical activity as tolerated. Orthostatic precautions were discussed to avoid injury. Overall discussed with her that complete resolution of her symptoms are most likely not going to happen. We also talked about precautions given that she is on Florinef. She understands and agrees. Will follow up in the clinic in 3 months time, sooner p.r.n.. Thank you for allowing me to partake in her care Medications: New midodrine do not give last dose of day after 6PM or within 4 hrs of bedtime 10 mg PO TID 90 tabs 5RF Discontinued midodrine Discontinued Reason: Doctor's Order 5 mg PO TID 90 days 270 tabs 1RF Coding Level of Care Code Est Pt Level 4 (34486) Diagnoses POTS (postural orthostatic tachycardia syndrome) G90.A
[2023-08-30 10:42] VITALS: BP 117/68; PULSE 83; BMI 22.6
[2023-08-30 10:49] VITALS: BP 126/79; PULSE 88
[2023-08-30 10:50] VITALS: BP 110/77; PULSE 102
== END 2023-08-30 11:01 | disposition home or self-care (01) ==
PROVIDERS: PCP Registered Nurse; Referring Provider Registered Nurse; Visit Provider Internal Medicine Cardiovascular Disease
DX: G90.A Postural orthostatic tachycardia syndrome [POTS] (principal)
CPT/HCPCS: 99214

== ENCOUNTER → 2023-08-30 10:36 | Outpatient (BNVA) | payer MEDICAID, SELFPAY | PROVIDERS: PCP Registered Nurse; Visit Provider Internal Medicine Cardiovascular Disease | DX: G90.A Postural orthostatic tachycardia syndrome [POTS] (principal); R42 Dizziness and giddiness | CPT/HCPCS: 99212 ==

== ENCOUNTER 2023-09-04 20:05 | Emergency (ER) | payer MEDICAID, SELFPAY ==
--- NOTE | ~2023-09-04 | XR_ITS ---
EXAMINATION: XR CHEST CLINICAL INFORMATION: Weakness. Cough. COMPARISON: None available. TECHNIQUE: 2 views of the chest were obtained. FINDINGS: No significant abnormality is noted involving the heart, lungs, mediastinum, bony thorax or soft tissues. XR/XR chest 2V IMPRESSION: Unremarkable examination.
[2023-09-04 20:11] VITALS: BP 136/74; PULSE 86; RESP 20; TEMP 36.9; O2SAT 100; BMI 20.7
--- NOTE | 2023-09-04 20:14 | ED.GENADULT ---
HPI - General Adult General Chief complaint: General Medical Stated complaint: weakness, cant walk, SOB Time Seen by Provider: 09/05/23 00:27 Source: patient Mode of arrival: ambulatory Limitations: no limitations History of Present Illness HPI narrative: Patient history of POTS orthostatic hypotension complaining of headache with history of migraine with nausea light sensitivity headache is better at this time no fever no chills blood pressure was 105/62 at home Related Data Home Medications Medication Instructions Recorded Confirmed levetiracetam 1,000 mg tablet 1,500 mg PO Q12H 07/05/21 08/30/23 (Keppra) ascorbic acid (vitamin C) 1,000 mg 1,000 mg PO DAILY 05/19/23 08/30/23 tablet (Vitamin C) magnesium oxide 400 mg (241.3 mg 400 mg PO DAILY 05/19/23 08/30/23 magnesium) tablet topiramate 200 mg tablet 200 mg PO BID 05/19/23 08/30/23 Previous Rx's Medication Instructions Recorded blood pressure monitor #1 ea 06/17/23 fludrocortisone 0.1 mg tablet 0.1 mg PO DAILY #90 tabs 06/17/23 metoprolol tartrate 25 mg tablet 12.5 mg (1/2 x 25 mg) PO BID #90 06/17/23 tabs midodrine 10 mg tablet 10 mg PO TID #90 tabs 08/30/23 uhfltdlamz-ksiqfuphmlgil-gxlsoswe 1 tab PO Q6H PRN haeadace #20 tabs 09/05/23 50 mg-325 mg-40 mg tablet Allergies Allergy/AdvReac Type Severity Reaction Status Date / Time No Known Allergies Allergy Verified 09/04/23 20:11 Review of Systems Review of Systems: Yes all other systems are reviewed and are negative [facility] Past Medical History Medical History Seizure disorder delivery delivered Chronic headaches Heavy menstrual bleeding LIANA (iron deficiency anemia) Seizures Surgical History History of delivery Family History Family History Brother Diabetes mellitus, type 2 Father Diabetes mellitus type 2, controlled Paternal Grandmother Breast cancer Social History Social History Household Members: Children Housing: House Are you a primary career development counselor to a significant other at home: No Do you presently have visiting nurse or other home services: No Alcohol intake: never Patient Tobacco Use Status: Never used Tobacco Smoked in Last 30 Days: No Use of substances other than those prescribed or required for medical reasons: No Advance Directives: No Advance Directives Information Provided: No Patient : No service: No Current occupational status: unemployed Physical Exam ED Vital Signs: Vital Signs - 24 hr 09/04/23 20:11 09/05/23 01:33 Temperature 98.4 F 98.4 F Pulse Rate 86 81 Respiratory Rate 20 16 Blood Pressure 136/74 135/74 Pulse Oximetry 100 99 Oxygen Delivery Method Room Air Room Air BMI result Body Mass Index 20.7 Appearance: Alert. Oriented X3. No acute distress. Eyes: PERRLA, No Nystagmus ENT: Pharynx normal. Oral Mucosa moist Neck: Normal inspection. Neck supple. CVS: Normal heart rate and rhythm. Pulses normal. Respiratory: No respiratory distress. Equal air entry bilateral, no wheezing/rales/rhonchi Abdomen: Soft and nontender. Bowel sounds are present, no mass palpable, no CVA tenderness Skin: Skin warm and dry. Normal skin color. Normal skin turgor. Extremities: No lower extremity edema. No calf tenderness Neuro: Oriented X 3. No motor deficit. No sensory deficit.No cerebellar signs , cranial nerves II-XII intact Course Course Course Narrative: This is an RME: Additional HPI, ROS, PE not included below will be deferred to primary provider. This is a 64-nxrt[age]ew[age]-female, with a hx of seizure disorder and POTS, presenting to the ER with a complaint of chest pain, dizziness, shortness of breath x 1 day. Tenderness palpation along the anterior chest wall. Also endorsing chills, nausea. Pt reporting her eyes are stuck in a position that happens when she is having a seizure. Pt found not to be doing this when no medical staff was present. Plan: Labs, EKG, CXR Medical Decision Making Medical Decision Making MDM Narrative: Patient likely with migraine headache with prescribe Fioricet patient feeling better at this time will discharge patient home Differential Diagnosis Differential Diagnoses: The differential diagnosis associated with the presentation includes Viral syndrome/migraine headache Lab Data MDM Lab Attestation statement: I reviewed the patient's lab results. 09/04/23 20:39 09/04/23 20:39 Labs: Lab Results 09/04/23 Range/Units 20:39 WBC 8.0 (4.8-10.8) X10*3/uL RBC 5.09 (4.20-5.50) X10*6/uL Hgb 13.7 (12.0-16.0) g/dl Hct 38.9 (37.0-47.0) % MCV 76.4 L (80.0-98.0) fL MCH 26.9 L (27.0-33.0) pg MCHC 35.2 H (31.0-35.0) g/dl RDW 13.1 (11.0-16.0) % Plt Count 272 (160-400) X10*3/uL MPV 11.2 (9.4-12.3) fL Immature Gran % (Auto) 0.1 (0.0-0.4) % Neut % (Auto) 41.5 L (45-73) % Lymph % (Auto) 43.7 H (20-40) % [place] % (Auto) 11.0 (2-11) % Eos % (Auto) 3.4 (0-4) % Baso % (Auto) 0.3 (0-2) % Lymph # (Auto) 3.5 (1.2-4.9) X10*3/uL [place] # (Auto) 0.9 (0.1-1.2) X10*3/uL Eos # (Auto) 0.3 (0.0-0.4) X10*3/uL Baso # (Auto) 0.0 (0.0-0.2) X10*3/uL Abs Immat Gran (auto) 0.01 (0.00-0.03) X10*3/uL Absolute Neuts (auto) 3.3 (2.0-8.3) x10*3/uL Absolute Nucleated RBC 0.000 (0.0-0.012) X10*3/uL Nucleated RBC % (auto) 0.0 (0.0-0.2) /100WBC Sodium 139 (135-145) mmol/L Potassium 3.8 (3.3-5.1) mmol/L Chloride 109 H (96-108) mmol/L Carbon Dioxide 23 (22-29) mmol/L Anion Gap 11 L (12-20) BUN 8 L (9-16) mg/dL Creatinine 0.67 (0.5-1.4) mg/dL Estim Creat Clear Calc 114.5 Estimated GFR > 60 Random Glucose 84 (60-115) mg/dL Calcium 9.3 (8.4-10.2) mg/dL Magnesium 2.2 (1.6-2.6) mg/dL Total Bilirubin 1.2 H (0.0-1.0) mg/dL Direct Bilirubin 0.4 (0.0-0.5) mg/dL AST 15 (5-31) U/L ALT 15 (0-31) U/L Alkaline Phosphatase 51 (39-117) U/L Troponin I High Sens < 2.7 (<3.5-17.0) ng/L Total Protein 8.1 H (6.5-8.0) g/dL Albumin 4.3 (3.5-5.0) g/dL Lipase 32 (8-78) U/L Influenza Type A (PCR) NEGATIVE (Negative) Influenza Type B (PCR) NEGATIVE (Negative) RSV RNA Qual (PCR) NEGATIVE (Negative) SARS-CoV-2 RNA (RT-PCR) NEGATIVE (Negative) Discharge Plan Discharge Clinical Impression: Headache, migraine Patient Disposition: Home, Self-Care Instructions: Migraine Headache (ED) Additional Instructions: Drink plenty of fluids Continue your medication Medication for migraine as prescribed Follow with PCP as needed Prescriptions: New bzubylqghc-zhghprecwldod-dspx 50-325-40 mg tablet 1 tab PO Q6H PRN (Reason: haeadace) Qty: 20 0RF No Action levetiracetam [Keppra] 1,000 mg Tablet 1,500 mg PO Q12H ascorbic acid (vitamin C) [Vitamin C] 1,000 mg Tablet 1,000 mg PO DAILY magnesium oxide 400 mg (241.3 mg magnesium) Tablet 400 mg PO DAILY topiramate 200 mg Tablet 200 mg PO BID (DME) blood pressure monitor Kit See Rx Instructions .Route Qty: 1 0RF Rx Instructions: As directed fludrocortisone 0.1 mg tablet 0.1 mg PO DAILY Qty: 90 1RF metoprolol tartrate 25 mg tablet 12.5 mg PO BID Qty: 90 1RF midodrine 10 mg tablet 10 mg PO TID Qty: 90 5RF Rx Instructions: do not give last dose of day after 6PM or within 4 hrs of bedtime Interventions: ED Discharge Assessment Last Done: 09/05/23 01:33 Discharge Date/Time: 09/05/23 01:36
--- NOTE | 2023-09-04 20:15 | ECG_ITS ---
Test Reason : DIZZINESS Blood Pressure : / mmHG Vent. Rate : 101 BPM Atrial Rate : 101 BPM P-R Int : 194 ms QRS Dur : 076 ms QT Int : 364 ms P-R-T Axes : 052 005 049 degrees QTc Int : 471 ms Sinus tachycardia Otherwise normal ECG When compared with ECG of 19-MAY-2023 05:49, Premature ventricular complexes are no longer Present Nonspecific T wave abnormality no longer evident in Lateral leads Referred By: Francesca Galan Electronically Signed By:BRITANY POTTS MD
[2023-09-04 20:45] LABS: Basophils Percent Auto 0.3 % (0-2); Eosinophils Absolute Auto 0.3 X10*3/uL (0.0-0.4); Eosinophils Percent Auto 3.4 % (0-4); Hematocrit 38.9 % (37.0-47.0); Hemoglobin 13.7 g/dl (12.0-16.0); Imm Gran Abs Auto 0.01 X10*3/uL (0.00-0.03); Imm Gran Pct Auto 0.1 % (0.0-0.4); Lymphocytes Absolute Auto 3.5 X10*3/uL (1.2-4.9); Lymphocytes Percent Auto 43.7 % (20-40); MANUAL DIFF FLAG NO; Mean Corpuscular HGB Conc 35.2 g/dl (31.0-35.0); Mean Corpuscular Hemoglobin 26.9 pg (27.0-33.0); Mean Corpuscular Volume 76.4 fL (80.0-98.0); Mean Platelet Volume 11.2 fL (9.4-12.3); Monocytes Absolute Auto 0.9 X10*3/uL (0.1-1.2); Neutrophils Absolute Auto 3.3 x10*3/uL (2.0-8.3); Neutrophils Percent Auto 41.5 % (45-73); Platelet Count 272 X10*3/uL (160-400); Red Blood Count 5.09 X10*6/uL (4.20-5.50); Red Cell Distribution Width 13.1 % (11.0-16.0)
[2023-09-04 21:02] LABS: Alanine Aminotransferase 15 U/L (0-31); Albumin Level 4.3 g/dL (3.5-5.0); Alkaline Phosphatase 51 U/L (39-117); Anion Gap 11 (12-20); Aspartate Amino Transferase 15 U/L (5-31); Bilirubin Direct 0.4 mg/dL (0.0-0.5); Bilirubin Total 1.2 mg/dL (0.0-1.0); Blood Urea Nitrogen 8 mg/dL (9-16); Calcium 9.3 mg/dL (8.4-10.2); Carbon Dioxide 23 mmol/L (22-29); Chloride 109 mmol/L (96-108); Creatinine Clr Calc Pharmacy 114.5; Estimated Glomerular Filt Rate > 60; Glucose Random 84 mg/dL (60-115); Lipase 32 U/L (8-78); Magnesium 2.2 mg/dL (1.6-2.6); Potassium 3.8 mmol/L (3.3-5.1); Sodium 139 mmol/L (135-145); Total Protein 8.1 g/dL (6.5-8.0)
[2023-09-04 21:09] LABS: Troponin-I High Sensitivity < 2.7 ng/L (<3.5-17.0)
[2023-09-04 21:21] LABS: Influenza A PCR NEGATIVE (Negative); Influenza B PCR NEGATIVE (Negative); Resp Syncy Virus RNA Qual PCR NEGATIVE (Negative); SARS COV2 PCR INHOUSE NEGATIVE (Negative)
[2023-09-05 01:33] VITALS: BP 135/74; PULSE 81; RESP 16; TEMP 36.9; O2SAT 99
== END 2023-09-05 01:36 | disposition home or self-care (01) ==
PROVIDERS: Physician Assistant Medical; Emergency Provider Internal Medicine
DX: G43.909 Migraine, unspecified, not intractable, without status migrainosus (principal); G90.A Postural orthostatic tachycardia syndrome [POTS]; G40.909 Epilepsy, unspecified, not intractable, without status epilepticus; Z03.818 Encounter for observation for suspected exposure to other biological agents ruled out
CPT/HCPCS: 0241U; 36415; 71046; 80048; 80076; 83690; 83735; 84484; 85025; 93005; 99283; 99284

== ENCOUNTER → 2023-09-04 20:15 | Outpatient (BNV) | payer MEDICAID, SELFPAY | PROVIDERS: Emergency Provider Internal Medicine; Visit Provider Internal Medicine Cardiovascular Disease | DX: R00.0 Tachycardia, unspecified (principal); R42 Dizziness and giddiness | CPT/HCPCS: 93010 ==

== ENCOUNTER 2023-09-27 10:06 | Outpatient (REF) | payer SELFPAY ==
[2023-09-27 11:37] LABS: MANUAL DIFF FLAG NO
[2023-09-27 11:50] LABS: Basophils Percent Auto 0.2 % (0-2); Eosinophils Absolute Auto 0.1 X10*3/uL (0.0-0.4); Eosinophils Percent Auto 1.8 % (0-4); Hematocrit 35.8 % (37.0-47.0); Hemoglobin 12.6 g/dl (12.0-16.0); Imm Gran Abs Auto 0.02 X10*3/uL (0.00-0.03); Imm Gran Pct Auto 0.3 % (0.0-0.4); Lymphocytes Absolute Auto 2.4 X10*3/uL (1.2-4.9); Lymphocytes Percent Auto 38.7 % (20-40); Mean Corpuscular HGB Conc 35.2 g/dl (31.0-35.0); Mean Corpuscular Hemoglobin 27.4 pg (27.0-33.0); Mean Corpuscular Volume 77.8 fL (80.0-98.0); Mean Platelet Volume 12.2 fL (9.4-12.3); Monocytes Absolute Auto 0.4 X10*3/uL (0.1-1.2); Neutrophils Absolute Auto 3.2 x10*3/uL (2.0-8.3); Platelet Count 243 X10*3/uL (160-400); Red Cell Distribution Width 13.3 % (11.0-16.0); White Blood Count 6.2 X10*3/uL (4.8-10.8)
[2023-09-27 12:08] LABS: Alanine Aminotransferase 14 U/L (0-31); Albumin Level 4.3 g/dL (3.5-5.0); Alkaline Phosphatase 45 U/L (39-117); Anion Gap 12 (12-20); Aspartate Amino Transferase 13 U/L (5-31); Bilirubin Total 1.3 mg/dL (0.0-1.0); Blood Urea Nitrogen 9 mg/dL (9-16); Calcium 9.4 mg/dL (8.4-10.2); Carbon Dioxide 22 mmol/L (22-29); Chloride 108 mmol/L (96-108); Estimated Glomerular Filt Rate > 60; Glucose Random 80 mg/dL (60-115); Potassium 3.8 mmol/L (3.3-5.1); Sodium 138 mmol/L (135-145); Total Protein 7.7 g/dL (6.5-8.0)
[2023-10-01 19:33] LABS: Levetiracetam Keppra 2.4 mcg/mL (6.0-46.0)
[2023-10-02 16:28] LABS: Topiramate 3.4 mcg/mL (see note)
== END 2023-09-27 10:07 | disposition home or self-care (01) ==
LOC: HO.HHCL 10:06
PROVIDERS: Nurse Practitioner; Visit Provider Registered Nurse
DX: G40.309 Generalized idiopathic epilepsy and epileptic syndromes, not intractable, without status epilepticus (principal); Z79.899 Other long term (current) drug therapy
CPT/HCPCS: 36415; 80053; 80177; 80201; 85025

== ENCOUNTER 2024-07-13 13:03 | Outpatient (REF) | payer SELFPAY ==
--- OUTSIDE RECORDS SUMMARY | 2024-07-13 14:09 | XMS_ITS | Encounter Summary ---
Author Organization [employer] Address [address] [facility] 7 [place] [address] Care Team Providers Care Fine Unhairer Name Role Phone Mery Masters Primary Care Provider [phone] Reason for Visit * Reason Onset Date Comments Appointment Request 08/20/2022 Encounter Details Date Type Department Care Team ([facility] st Contact Info) Description 08/20/2022 Telephone [facility] MEDICINE [address] [place] [address] Mery Masters FNP [address] [place] [address] Appointment Request Social History Tobacco Use Types Packs/Day Years Used Date Smoking Tobacco: Never Assessed Comments Unknown Sex and Gender Information Value Date Recorded Sex Assigned at Female 04/02/2022 10:39 AM EDT Legal Sex Female 10:39 AM EDT Gender Identity Female 04/02/2022 10:39 AM EDT Sexual Orientation Straight 04/02/2022 10 :39 AM EDT documented as of this encounter Miscellaneous Notes * Telephone Encounter - Geovanny Hdz - 08/20/2022 4:16 PM EDT Tc from pt requesting to r/s appt on 08/20/22 ( F/U on Seizure disorder and LIANA left voicemail at 3:02pm yr ) Please contact pt at [phone] documented in this encounter Plan of Treatment Upcoming Encounters Date Type Department Care Team (Late st Contact Info) Description 07/21/2024 11:00 AM EST Office Visit [facility] ADULT DENTAL [address] [place] [address] Dany Carpenter documented as of this encounter Visit Diagnoses Not on filedocumented in this encounter Care Teams Fine Unhairer Relationship Specialty Start Date End Date Mery Masters FNP [address] [place] [id number] PCP - General Family Medicine 07/03/21 documented as of this encounter
--- OUTSIDE RECORDS SUMMARY | 2024-07-13 14:09 | XMS_ITS | Encounter Summary ---
Author Organization [employer] Address [address] [facility] 7 [place] [address] Care Team Providers Care Direct Care Provider Name Role Phone Mery Masters DOYLE Primary Care Provider [phone] Reason for Visit * Reason Onset Date Comments appt per provider 08/27/2023 Encounter Details Date Type Department Care Team (Late st Contact Info) Description 08/27/2023 Telephone [facility] ADULT DENTAL [address] [place] [address] Xavier Paredes, DMD [address] [place] [address] appt per provider Social History Tobacco Use Types Packs/Day Years Used Date Smoking Tobacco: Never Passive Smoke Exposure: Never Smokeless Tobacco: Never Alcohol Use Standard Drinks/Week Comments Defer 0 (1 standard drink = 0.6 oz pur e alcohol) Depression Answer Date Recorded Patient Health Questionnaire-9 Score 3 08/14/2023 Patient Health Questionnaire-9 Score 3 08/14/2023 Last PHQ-9: Questionnaire Data Not on file 0 08/14/2023 Housing Stability Answer Date Recorded What is your housing situation today? I do not have housing (Staying with others, in a hotel, in a retirement, living outside on the street, on a beach, in a car, or in a park 05/23/[address] you li ve. Do you have problems with any of the following? None of the above 05/23/2023 Food Insecurity Answer Date Recorded Within the past 12 months, y ou worried that your food would run out before you got money to buy more: Often true 05/23/2023 Within the past 12 months,th e food you bought just didn't last and you didn't have enough money to get more: Often true Transportation Answer Date Recorded In the past 12 months, has l ack of transportation kept you from medical appts, meetings, work or from getting things needed for daily living? No 05/23/2023 Utilities Answer Date Recorded In the past 12 months, has t he electric, gas, oil or water company threatened to shut off services in your home? No 05/23/2023 Depression Answer Date Recorded Patient Health Questionnaire-2 Score 0 08/14/2023 Comments Unknown Sex and Gender Information Value Date Recorded Sex Assigned at Female 04/02/2022 10:39 AM EDT Legal Sex Female 10:39 AM EDT Gender Identity Female 04/02/2022 10:39 AM EDT Sexual Orientation Straight 04/02/2022 10 :39 AM EDT documented as of this encounter Miscellaneous Notes * Telephone Encounter - Diana Kaiser - 08/27/2023 1:57 PM EDT Patient came in July for an emergency dental appt and active requested forr extraction. Mery Masters provider for patient in [facility] sent referral in system and questions patient appt for tx to be rendered due to patient being in pain. I did explain that she is able to come as an emergency patientif the pain is that bad but that I would send request to dental for scheduling per provider and [facility] referral request DR documented in this encounter Plan of Treatment Upcoming Encounters Date Type Department Care Team (Late st Contact Info) Description 07/21/2024 11:00 AM EST Office Visit [facility] ADULT DENTAL [address] [facility] [place] [address] Dany Carpenter documented as of this encounter Visit Diagnoses Not on filedocumented in this encounter Additional Health Concerns Assessment Noted Time PHQ-9 Depression Total Score: 3 08/14/19 24 9:59 AM EDT documented as of this encounter Care Teams Direct Care Provider Relationship Specialty Start Date End Date Mery Masters FNP [address] [place] [address] PCP - General Family Medicine 07/03/21 documented as of this encounter
--- OUTSIDE RECORDS SUMMARY | 2024-07-13 14:09 | XMS_ITS | Encounter Summary ---
Author Organization [facility] Address [address] [place] [address] Care Team Providers Care Sulphate Tester Name Role Phone Mery Masters Primary Care Provider [phone] Reason for Visit * Reason Onset Date Comments transportation issue 07/14/2021 Encounter Details Date Type Department Care Team (Late st Contact Info) Description 07/14/2021 Telephone [facility] [address] [place] [address] [phone] Telephone Intake, Staff transportation issue Social History Tobacco Use Types Packs/Day Years Used Date Smoking Tobacco: Never Assessed Comments Unknown Sex and Gender Information Value Date Recorded Sex Assigned at Female 09/25/2023 9:35 AM EDT Legal Sex Female 12:55 PM EST Gender Identity Not on file Sexual Orientation Not on file documented as of this encounter Miscellaneous Notes * Telephone Encounter - Cristofer Lozano - 07/17/2021 8:50 AM EST Just received a call from pt pcp office stating that the appt in august no longer needs to be changed to telehealth and it can be kept as an in person * Telephone Encounter - Francesca Yahir - 07/14/2021 9:28 AM EST Mery Masters- [facility] which is this pt's primary care provider called and said that pt has an apt coming up in August but it is an in person apt and her primary care is trying to changeher apt over to a telehealth apt because pt has limited available transportation. She will have better transportation in about a month or so, but for right now she really needs to be seen by neurology since she is having a lot of consistent seizures. Primary care would like to change pt's apt from in person to a telehealth for her first apt . A good call back number is [phone]. documented in this encounter Plan of Treatment Not on file documented as of this encounter Visit Diagnoses Not on filedocumented in this encounter Care Teams Sulphate Tester Relationship Specialty Start Date End Date Mery Masters [address] [place] [id number] PCP - General Family Medicine 08/16/23 documented as of this encounter
--- OUTSIDE RECORDS SUMMARY | 2024-07-13 14:09 | XMS_ITS | Clinical Summary ---
Author Organization [facility] Address [address] [place] [address] Care Team Providers Care Appliance Line Assembler Name Role Phone Mery Masters Primary Care Provider [phone] Allergies No known active allergies Medications topiramate (TOPAMAX) 25 mg tabletIndication s:Other migraine without status migrainosus, intractable Take 1 tab daily x 1 week then 2 tabs daily thereafter. 60 tablet 11 2 Active levETIRAcetam (Keppra) 1,000 mg tabletIndication s:Nonintractable generalized idiopathic epilepsy without status epilepticus (HCC) Take 1 tablet (1,000 mg total) by mouth 2 times a day. 60 tablet 11 2 Active levonorgestreL (LILETTA) 20.1 mcg/24 hrs (6 yrs) 52 mg intrauterine device 1 Device by intrauterine route once. Active magnesium oxide (MAG-OX) 400 mg (241.3 mg mag) tablet 400 mg. 4 Active ascorbic acid, vitamin C, (VITAMIN C) 1,000 mg tablet Take 1 tablet by mouth daily. Active fludrocortisone (FLORINEF) 0.1 mg tablet Take 1 tablet by mouth daily. 3 Active metoprolol tartrate (LOPRESSOR) 25 mg tablet Take 0.5 tablets by mouth 2 times daily. 3 Active midodrine (PROAMATINE) 10 mg tablet Take 10 mg by mouth 3 times a day. 4 Active Active Problems Problem Noted Date Diagnosed Date POTS (postural orthostatic tachycardia syndrome) 09/25/2023 Overview (09/25/2023): Tilt table test confirmed diagnosis in June 2023. Currently on Midrodrine, Metoprolol, Fluodrocortisone Following with [facility] - Dr Vasquez Assessment & Plan (09/25/2023 12:14 PM EDT): Discussed with patient: Exercise conditioning with a recumbent bike, rowing machine, or swimming. This approach allows patients to exercise while avoiding the upright position and improves tolerance of the program. (Medications can be considered in patients with severe symptoms as a bridge to help minimize some symptoms and allow patients to initiate the exercise program. Such medications include propranolol, midodrine, pyridostigmine, fluodrocortisone.) Increasing blood volume can be accomplished by drinking 3 liters of water per day and liberalizing salt intake by ingesting 5-10 g of sodium per day. Avoidance of large and heavy meals, alcohol, and heat exposure. Wearing compression stockings up to the top of the thighs or higher and abdominal binders and they must extend at least to the top of the thighs and preferably to the abdomen. Sleeping with head of bed elevated and performance of physical counter maneuvers such as leg crossing and squatting. https://[email or web address].org/ceepww-kz-nqvgrcwiqr/jlt-fbmfvd-ur-remember//51 /post [email or web address]-iflpboipvyv-[email or web address]-syndrome Migraine without aura and wi thout status migrainosus, not intractable 11/14/2021 Nonintractable generalized i diopathic epilepsy without status epilepticus 08/15/2021 Overview (11/14/2021): Briefly, 25 [facility] h/o possible focal epilepsy and headaches on Kera ONSET: 12yo, in [place], starting being short of breath and heart racing treated with medication for tachycardia. She reports that because she was collapsing she was taken to a neurologist where they discovered she had seizures. SEMIOLOGY: Day before she will have a headache. Warning fractions of seconds loss of vision then loses consciousness. Witnesses describe eyes roll back, foam, body contract. Denies tongue. At 15-16yo, had an episode where she felt body covered by ants and headache then short of breath. She told her mom over the phone and so her mom sent someone to check on her. When she stood up to answer the door, she lost consciousness. She had difficulty moving her left leg which she required therapy to recover strength. TRIGGERS: FREQUENCY: She would have seizures 2-3 times per month. Longest that she's been seizure free for 2-3 months. Last seizure Jun 2021. She [place] med from [place] and requesting from Instead of taking twice daily, she was only taking it once daily. Now she is taking it twice daily. Also, reports persistent headaches. in 2013 and had to go to hospital to get injected for headaches. Goes one day without headache but she has daily headaches described as holocephalic pressure with throbbing, +light and sound sensitivity, +nausea and dizziness. Denies FH migraine. No plans on getting . Takes Sumigranplus daily (Sumatriptan, Ergotamine 1mg, Ibuprofen 400mg, Caffeine 50mg). Prior trials: Ibuprofen 900mg in order Assessment & Plan (09/25/2023 12:18 PM EDT): This is a 28 y.o. right handed female with LIANA, migraines, who presents to [facility] for routine follow-up regarding suspected epilepsy and recently diagnosed POTS. She last had a known seizure in May 2023, at which time, LEV and TPM were increased. She reports an EEG was completed at an outside hospital but results are not available. I suspect a lot of her current symptoms may be more related to POTS but as they are similar to her semiology, we will obtain EEG and ambulatory EEG to characterize the events. If seizures are well controlled, can consider lowering AED doses at future visit. - Continue Levetiracetam 1500 mg twice daily - Continue Topiramate 200 mg twice daily - Check labs - Seizure/Fall precautions - EEG and ambulatory EEG ordered - Follow up in 6 months Assessment & Plan (11/14/2021 9:30 AM EDT): - continue Keppra 1000mg twice daily - continue Topiramate 25mg twice daily - will help to schedule the routine EEG today - follow-up on order for MRI Brain with and without contrast - advised to avoid taking such high doses of ibuprofen Seizure precautions were reviewed as well as side effects of the medication(s). The patient knows to contact me should side effects occur. I spent a total of 30 minutes on the date of encounter, which included: ?? Obtaining and/or reviewing separately obtained history ?? Performing a medically appropriate exam and/or evaluation ?? Counseling and educating the patient/family/caregiver ?? Ordering medications, tests, procedures ?? Documenting clinical information in the health record Assessment & Plan (08/15/2021 12:04 PM EDT): - continue Keppra 1000mg BID - obtain routine EEG - obtain MRI Brain with and without contrast - start Topiramate 25mg tabs with gradual titration to 50mg BID for migraine prevention - also provided recommendation of beginning to wean SumigranPlus gradually by taking one less day per week each week until she is only taking it no more than 2 days per week. - continue Magnesium for migraine prevention - advised to avoid taking such high doses of ibuprofen Seizure precautions were reviewed as well as side effects of the medication(s). The patient knows to contact me should side effects occur. I spent a total of 60 minutes on the date of encounter, which included: ?? Obtaining and/or reviewing separately obtained history ?? Performing a medically appropriate exam and/or evaluation ?? Counseling and educating the patient/family/caregiver ?? Ordering medications, tests, procedures ?? Documenting clinical information in the health record Social History Tobacco Use Types Packs/Day Years Used Date Smoking Tobacco: Never Smokeless Tobacco: Never Alcohol Use Standard Drinks/Week Comments Never 0 (1 standard drink = 0.6 oz pur e alcohol) Comments Unknown Sex and Gender Information Value Date Recorded Sex Assigned at Female 09/25/2023 9:35 AM EDT Legal Sex Female 12:55 PM EST Gender Identity Not on file Sexual Orientation Not on file Last Filed Vital Signs Vital Sign Reading Time Taken Comments Blood Pressure 119/70 09/25/2023 9:37 AM EDT Pulse 67 09/25/2023 9:37 AM EDT Temperature 36.8 ??C (98.3 ??F) 09/25/2023 9:37 AM ED T Respiratory Rate 18 09/25/2023 9:37 AM EDT Oxygen Saturation - - Inhaled Oxygen Concentration - - Weight 58 kg (127 lb 13.9 oz) 09/25/2023 9:37 AM EDT Height 170.2 cm (5' 7 ) 09/25/2023 9:37 AM EDT Body Mass Index 20.03 09/25/2023 9:37 AM EDT Plan of Treatment Health Maintenance Due Date Last Done Comments HIV Screening 1994 Hepatitis C Screening 1994 Pap Smear 1994 Varicella Vaccines (1 of 2 - 13+ 2-dose series) 09/18/2007 Hepatitis B Vaccines (1 of 3 - 19+ 3-dose series) 2013 COVID-19 Vaccine (1 - 2023-2 5 season) 2024 Influenza Vaccine (#1) 2024 Alcohol/Substance Use Screening 06/03/2024 Depression Screening and Follow-Up 06/03/2024 Social Drivers of Health Zeynep ual Screening 06/03/2024 DTaP,Tdap,and Td Vaccines (2 - Td or Tdap) 08/13/2033 08/14/2023 RSV Vaccine (60+ years old a nd patients) (1 - 1-dose 75+ series) 2069 Pneumococcal Vaccine: Pediat miguelina (0-5 Years) and At-Risk Patients (6-64 Years) Aged Out No longer eligible b ased on patient's age to complete this topic Insurance [facility] [id number] HS/FREE CARE Care Teams Appliance Line Assembler Relationship Specialty Start Date End Date Mery Masters [address] [place] [phone] PCP - General Family Medicine 08/16/23
--- OUTSIDE RECORDS SUMMARY | 2024-07-13 14:09 | XMS_ITS | Encounter Summary ---
Author Organization [facility] Address [address] [place] [address] Care Team Providers Care Sustainability Coordinator Name Role Phone Mery Masters DOYLE Primary Care Provider [phone] Encounter Details Date Type Department Care Team (Latest Contact Info) Description 07/13/2024 Travel Social History Tobacco Use Types Packs/Day Years Used Date Smoking Tobacco: Never Passive Smoke Exposure: Never Smokeless Tobacco: Never Alcohol Use Standard Drinks/Week Comments Never 0 (1 standard drink = 0.6 oz pur e alcohol) Depression Answer Date Recorded Patient Health Questionnaire-9 Score 0 07/13/2024 Patient Health Questionnaire-9 Score 0 07/13/2024 Last PHQ-9: Questionnaire Data Not on file 0 07/13/2024 Housing Stability Answer Date Recorded What is your housing situation today? I have tomgeni murray 07/13/[address] you li ve. Do you have problems with any of the following? None of the above 07/13/2024 Food Insecurity Answer Date Recorded Within the past 12 months, y ou worried that your food would run out before you got money to buy more: Never True 07/13/2024 Within the past 12 months,th e food you bought just didn't last and you didn't have enough money to get more: Never True 03/2025 Transportation Answer Date Recorded In the past 12 months, has l ack of transportation kept you from medical appts, meetings, work or from getting things needed for daily living? No 07/13/2024 Utilities Answer Date Recorded In the past 12 months, has t he electric, gas, oil or water company threatened to shut off services in your home? No 07/13/2024 Depression Answer Date Recorded Patient Health Questionnaire-2 Score 0 07/13/2024 Internet Access Answer Date Recorded Internet Access Q1 Yes 07/13/2024 Internet Access Q2 Not on file 07/13/2024 Comments Unknown Sex and Gender Information Value Date Recorded Sex Assigned at Female 04/02/2022 10:39 AM EDT Legal Sex Female 10:39 AM EDT Gender Identity Female 04/02/2022 10:39 AM EDT Sexual Orientation Straight 04/02/2022 10 :39 AM EDT documented as of this encounter Plan of Treatment Upcoming Encounters Date Type Department Care Team (Late st Contact Info) Description 07/21/2024 11:00 AM EST Office Visit [facility] [address] [place] [address] Dany Carpenter documented as of this encounter Visit Diagnoses Not on filedocumented in this encounter Additional Health Concerns Assessment Noted Time PHQ-9 Depression Total Score: 0 07/13/19 25 11:28 AM EST documented as of this encounter Care Teams Sustainability Coordinator Relationship Specialty Start Date End Date Mery Masters FNP [address] [place] [address] PCP - General Family Medicine 07/03/21 documented as of this encounter
--- OUTSIDE RECORDS SUMMARY | 2024-07-13 14:09 | XMS_ITS | Referral Summary ---
Author Organization [facility] Address [address] [place] [address] Care Team Providers Care Cradle Placer Name Role Phone Mery Masters Primary Care Provider [phone] Allergies No known active allergies Medications topiramate [...] maneuvers such as leg crossing and squatting. [email or web address]-tw-[email or web address]-ovxudy-fl-[email or web address] /post [email or web address] Migraine without aura and wi thout status [...] female with LIANA, migraines, who presents to [facility] for routine follow-up regarding suspected [...] 09/25/2023 9:37 AM EDT Plan of Treatment Not on file Insurance [address] [place] [id number] [facility] HSNO/FREE CARE Care Teams Cradle Placer Relationship Specialty Start Date End Date Mery Masters [address] [place] [phone] PCP - General Family Medicine 08/16/23
--- OUTSIDE RECORDS SUMMARY | 2024-07-13 14:09 | XMS_ITS | Clinical Summary ---
Author Organization [employer] Address [address] [facility] [address] [place] [address] Care Team Providers Care Filtration Supervisor Name Role Phone Mery Masters DOYLE Primary Care Provider [phone] Allergies No known active allergies Medications Levonorgestrel 20.1 MCG/DAY intrauterine device 1 Device by Intrauterine route. Active magnesium oxide (Mag-Ox) 400 mg tablet Take 1 tablet (400 mg) by mouth in the morning. 90 tablet 4 Active Additional Information Patient not taking.Reported on 07/13/2024 Blood Pressure Monitor kit Check blood pressure daily and when symptomatic 1 kit 4 Active Additional Information Patient not taking.Reported on 07/13/2024 midodrine (Proamatine) 10 MG tablet TAKE 1 TABLET BY MOUTH THREE TIMES DAILY. DO NOT TAKE 3rd DOSE AFTER DE 6PM OR LESS THAN 4 HOURS BEFORE BEDTIME 4 Active Blood Pressure Monitoring (Omron 3 Series BP Monitor) device Check blood pressure on arm as directed 4 Active Sod Fluoride-Potassi um Nitrate 1.1-5 % pasteIndications :Secondary dental caries associated with failed or defective dental temple [place] teeth for 2 minutes, morning and night. Spit, do not rinse. Do not eat or drink anything for 30 minutes following brushing. 112 g 3 4 Active Additional Information Patient not taking.Reported on 07/13/2024 magnesium oxide (Mag-Ox) 400 MG tablet Take 1 tablet (400 mg) by mouth at bedtime. 90 tablet 3 4 Active Additional Information Patient not taking.Reported on 07/13/2024 levETIRAcetam (Keppra) 1000 MG tablet Take 1 tablet (1,000 mg) by mouth at noon and 1 tablet (1,000 mg) in the evening. 180 tablet 4 Active Additional Information Patient not taking.Reported on 07/13/2024 topiramate (Topamax) 200 MG tablet Take 1 tablet (200 mg) by mouth 2 times daily. 180 tablet 4 Active Additional Information Patient not taking.Reported on 07/13/2024 metoprolol tartrate (Lopressor) 25 MG tablet Take 0.5 tablets (12.5 mg) by mouth 2 times daily. 180 tablet 4 Active Additional Information Patient not taking.Reported on 07/13/2024 fludrocortisone (Florinef) 0.1 MG tablet Take 1 tablet (0.1 mg) by mouth Once per day. 90 tablet 4 Active Additional Information Patient not taking.Reported on 07/13/2024 ferrous gluconate (Fergon) 324 (38 Fe) MG tablet Take 1 tablet (324 mg) by mouth 3 (three) times a week. 36 tablet 4 025 Active Additional Information Patient not taking.Reported on 07/13/2024 Ascorbic Acid (vitamin C) 1000 MG tablet Take 1 tablet (1,000 mg) by mouth Once per day. 90 tablet 1 4 Active Additional Information Patient not taking.Reported on 07/13/2024 hydrocortisone 2.5 % creamIndications :Xerosis of skin Apply pea sized amount to affected skin bid for 1 week. (Location: external ears) 15 g 5 Active Additional Information Patient not taking.Reported on 07/13/2024 Active Problems Problem Noted Date Diagnosed Date Dental calculus 10/11/2023 Gingival bleeding 10/11/2023 Healthcare maintenance 07/25/2023 Overview (09/14/2023): Optometry: referral to [facility] eye care placed 08/27/23 Dental: Referral to [facility] Dental Jul 2023 Pap: 07/11/21: ASCUS, HPV negative (Due Jul 2024) Contraception: Liletta IUD inserted 08/16/21 (card user removal date: 08/17/2027) POTS (postural orthostatic tachycardia syndrome) 06/05/2023 Overview (07/13/2024): Diagnosed during [facility] Admission May 2023 Previous tx: midodrine 10mg TID, metoprolol tartrate 12.5mg BID, and fludrocortisone 0.1mg daily Following with [facility] Cards - Dr. Vasquez & [facility] Neurology Plasma metanephrine levels: wnl Tilt table test Jun 2023 ([facility]): orthostatic tachycardia with compensatory hypertension Assessment & Plan (07/13/2024 11:07 AM EST): Currently well controlled off medication Encouraged to continue following with specialists and monitoring for symptoms Assessment & Plan (10/26/2023 11:46 AM EDT): Diagnosed during [facility] Admission May 2023 Continues midodrine 10mg TID, metoprolol tartrate 12.5mg BID, and fludrocortisone 0.1mg daily Following with [facility] Cards - Dr. Vasquez & [facility] Neurology Encouraged hydration and liberal salt intake, change positions slowly Plasma metanephrine levels: wnl Tilt table test Jun 2023 ([facility]): orthostatic tachycardia with compensatory hypertension Reviewed follow up precautions Much improved compared to prior, continue with current management Assessment & Plan (09/14/2023 7:34 PM EDT): Diagnosed during [facility] Admission May 2023 Continues midodrine 10mg TID, metoprolol tartrate, and fludrocortisone 0.1mg daily Following with [facility] Cards Paul Vasquez Encouraged hydration and liberal salt intake, change positions slowly Plasma metanephrine levels: wnl Tilt table test Jun 2023 ([facility]): orthostatic tachycardia with compensatory hypertension Reviewed ED/urgent care precautions Plan to follow up with Cardiology and Neurology Assessment & Plan (08/14/2023 8:09 PM EDT): Diagnosed during [facility] Admission May 2023 Started on midodrine, metoprolol tartrate, and fludrocortisone Following with [facility] Paul Vasquez Encouraged hydration and liberal salt intake, change positions slowly Plasma metanephrine levels: wnl Tilt table test Jun 2023 ([facility]): orthostatic tachycardia with compensatory hypertension Reviewed ED/urgent care precautions Plan to follow up with Cardiology and Neurology Assessment & Plan (07/28/2023 10:43 AM EST): Diagnosed during [facility] Admission May 2023 Started on midodrine, metoprolol tartrate, and fludrocortisone Following with [facility] Cards - Dr. Vasquez Encouraged hydration and liberal salt intake, change positions slowly Plasma metanephrine levels: wnl Tilt test through Cards: request records, possible not POTS (?) Reviewed ED/urgent care precautions PCP to communicate with Cards office regarding results and POC Pt to schedule follow up with Neurology Assessment & Plan (06/05/2023 12:55 PM EST): Pt dxed w POTS improved w current tx on fludrocortisone,BB and midodrine -advised hydration and liberal salt intake ,also to change postures slowly -continue current meds-pt reports has enough meds until upcoming visit w cards in < 2 weeks -pt will check w specialist if plan to continue meds and request refills if needed -follow up with [facility] Cardiology -apt 06/17/2023 ( will f w cards Plasma metanephrine levels sent at hospital as well plan to f up Tilt test and Holter result then) -alarm signs and symptoms discussed in length Nonintractable generalized i diopathic epilepsy without status epilepticus 08/15/2021 Overview (07/28/2023): Briefly, 25 [facility] h/o possible focal epilepsy and headaches on Keppra ONSET: 12yo, in [place], starting being short of breath and [...] [place] med from [place] and requesting from DR. Instead of taking twice daily, she was [...] 50mg). Prior trials: Ibuprofen 900mg in order Last Assessment & Plan: - continue Keppra 1000mg twice daily - [...] to contact me should side effects occur. Assessment & Plan (07/13/2024 1:07 PM EST): Followed by [facility] Neurology, encouraged to schedule follow up appt EEG wnl October 2022 through [facility] Neuro Previous rx: Topiramate 200mg BID, keppra 1000mg BID Currently off tx since March 2024 (self DC) and has had no seizures or symptoms since Assessment & Plan (07/28/2023 10:45 AM EST): Followed by [facility] Neurology, encouraged to schedule follow up appt Topiramate increased to 200mg BID since last visit, continues with keppra 1000mg BID Fibroadenoma of right breast 07/29/2021 Iron deficiency anemia 07/01/2021 Assessment & Plan (07/13/2024 1:08 PM EST): 05/23/2023 hb 12.9, MCV 77.2. No anemia, but (+) microcytosis. Plan to take iron 3x/week and recheck labs Menorrhagia has improved s/p IUD placement Recheck labs to determine if supplementation necessary Assessment & Plan (07/28/2023 10:45 AM EST): 05/23/2023 hb 12.9, MCV 77.2. No anemia, but (+) microcytosis. Plan to take iron 3x/week and recheck labs Menorrhagia has improved s/p IUD placement Recheck labs to determine if supplementation necessary Assessment & Plan (06/05/2023 12:54 PM EST): 05/23/2023 hb 12.9, MCV 77.2 There is no anemia but has microcytosis ,reports hx of iron def anemia for which used to take iron assoicated w menorrhagia that improved since has IUD -resume iron 3 times a week -would recheck CBC and iron panel in 8 weeks -pt will f w PCP Menorrhagia 07/01/2021 Migraine without aura and wi thout status migrainosus, not intractable 06/24/2021 Assessment & Plan (08/14/2023 8:11 PM EDT): YIN/migraines: treated by [facility] Neurology with topiramate 25mg BID (although increased to 200mg BID during hospitalization, pt to confirm which dose she is currently taking). Continues with magnesium as well for prophylaxis Refill ibuprofen PRN, encouraged to use sparingly PRN Assessment & Plan (07/25/2023 6:40 PM EST): >>ASSESSMENT AND PLAN FOR OTHER HEADACHE SYNDROME WRITTEN ON 07/25/2023 6:37 PM BY DOYLE HURST YIN/migraines: treated by [facility] Neurology with topiramate 25mg BID. Reports initiation of medication has substantially improved her migraines. Does not recall day of last migraine/YIN Continues with magnesium as well for prophylaxis. Resolved Problems Problem Noted Date Diagnosed Date Resolved Date Seizure 06/24/2021 07/25/2023 Assessment & Plan (07/25/2023 6:36 PM EST): Pt is not sure if last seizure was 04/2023 thinks she is confused if at some point any symptoms experienced had seizure but per pt was told not to have any new episodes recently -pt missed apt w her neurologist --advised to call to reschedule apt today -pt confirms she is taking keppra 1000 mg BID -request refill today Assessment & Plan (06/05/2023 12:58 PM EST): Pt is not sure if last seizure was 04/2023 thinks she is confused if at some point any symptoms experienced had seizure but per pt was told not to have any new episodes recently -pt missed apt w her neurologist --advised to call to reschedule apt today -pt confirms she is taking keppra 1000 mg BID -request refill today Encounters Date Type Department Care Team Description 07/13/2024 1:45 PM EST Procedure Visit [facility] [address] [place] [address] Kell Pritchett CNM Cervical cancer screening (Primary Dx); Checking of intrauterine device 07/13/2024 10:15 AM EST Office Visit [facility] [address] [place] [address] Mery Masters FNP POTS (postural orthostatic tachycardia syndrome) (Primary Dx); Healthcare maintenance; Nonintractable generalized idiopathic epilepsy without status epilepticus (CMS/HCC); Iron deficiency anemia, unspecified iron deficiency anemia type; Xerosis of skin; Immunization due 07/13/2024 Travel 07/08/2024 Telephone [facility] [address] [place] [address] Rolly Forrester MA Chart Prep 07/06/2024 Orders Only [facility] ADULT DENTAL [address] [place] [address] Xavier Paredes, CANDICE 06/25/2024 Telephone [facility]ULT [facility] [address] [place] [address] Kenny Vides, CANDICE 05/22/2024 Travel from Last 3 Months Immunizations Name Administration Dates Next Due Hep B, adult 07/13/2024,10/23/2023 Tdap 08/14/2023 Social History Tobacco Use Types Packs/Day Years Used Date Smoking Tobacco: Never Passive Smoke Exposure: Never Smokeless Tobacco: Never Tobacco Cessation:Counseling Given: Not Answered Alcohol Use Standard Drinks/Week Comments Never 0 (1 standard drink = 0.6 oz pur e alcohol) Depression Answer Date Recorded Patient Health Questionnaire-9 Score 0 07/13/2024 Patient Health Questionnaire-9 Score 0 07/13/2024 Last PHQ-9: Questionnaire Data Not on file 0 07/13/2024 Housing Stability Answer Date Recorded What is your housing situation today? I have tom murray 07/13/[address] you [...] Orientation Straight 04/02/2022 10 :39 AM EDT Last Filed Vital Signs Vital Sign Reading Time Taken Comments Blood Pressure 102/70 07/13/2024 1:55 PM EST Pulse 80 07/13/2024 1:55 PM EST Temperature 37.1 ??C (98.8 ??F) 07/13/2024 1:55 PM ES T Respiratory Rate 16 07/13/2024 1:55 PM EST Oxygen Saturation 99% 07/13/2024 10:28 AM EST Inhaled Oxygen Concentration - - Weight 57.4 kg (126 lb 8 oz) 07/13/2024 1:55 PM EST Height 167.6 cm (5' 6 ) 07/13/2024 1:55 PM EST Body Mass Index 20.42 07/13/2024 1:55 PM EST Plan of Treatment Upcoming Encounters Date Type Department Care Team (Late st Contact Info) Description 07/21/2024 11:00 AM EST Office Visit [facility] ADULT D[facility] [address] [place] [address] Dany Carpenter Health Maintenance Due Date Last Done Comments Family Planning (PISQ) 2009 Dental Oral Exam 04/13/2024 10/11/2023 Dental Prophylaxis 04/13/2024 10/11/2023 Pap Smear 07/11/2024 07/11/2021 Hepatitis B Vaccines (3 of 3 - 19+ 3-dose series) 09/07/2024 07/13/2024, 10/23/2023 Dental X-Ray: Bitewings 10/11/2024 10/11/19 24, 07/26/2023 Influenza Vaccine (#1) 2024 Postp oned from 02/02/2024 (Patient Refused) Alcohol/Substance Use Screening 07/13/2025 07/13/2024 COVID-19 Vaccine (1 - 2023-2 5 season) 2025 Postponed from 02/01 (Patient Refused) Depression Screening 07/13/2025 07/13/2024, 07/13/2024 SDOH Screening 07/13/2025 07/13/2024 Tobacco Screening 07/13/2025 07/13/2024 Dental X-Ray: Full Mouth 10/11/2026 10/11/2023 DTaP/Tdap/Td Vaccines (2 - T d or Tdap) 08/13/2033 08/14/2023 Zoster Vaccines (1 of 2) 2044 RSV Patients and Patients Aged 60 years or older (1 - 1-dose 75+ series) 2069 HIV Screening Completed 06/28/2021 Hepatitis C Screening Completed 06/28/2021 HIB Vaccines Aged Out No longer eligi ble based on patient's age to complete this topic HPV Vaccines Aged Out No longer eligi ble based on patient's age to complete this topic Hepatitis A Vaccines Aged Out No long er eligible based on patient's age to complete this topic IPV Vaccines Aged Out No longer eligi ble based on patient's age to complete this topic Meningococcal Vaccine Aged Out No misael deepa eligible based on patient's age to complete this topic Pneumococcal Vaccine: Pediatrics (0 to 5 Years) and At-Risk Patients (6 to 49) Years) Aged Out No longer eligible b ased on patient's age to complete this topic RSV under 20 months Aged Out No longe r eligible based on patient's age to complete this topic Rotavirus Vaccines Aged Out No longer eligible based on patient's age to complete this topic Procedures Procedure Name Priority Date/Time Associated Diagnosis Comments PROPHYLAXIS - ADULT Routine 10/11/2023 1 0:15 AM EDT Dental calculus Gingival bleeding DIAGNOSTIC - DIAGNOSTIC IMAGING - INTRAORAL - COMPREHENSIVE SERIES OF RADIOGRAPHIC IMAGES Routine 10/11/2023 9:00 AM EDT Secondary dental caries associated with failed or defective dental temple Gingivitis COMPREHENSIVE ORAL EVALUATION - NEW OR ESTABLISHED PATIENT Routine 10/11/2023 9:00 AM EDT Secondary dental caries associated with failed or defective dental temple Gingivitis THINPREP IMAGING SYSTEM PAP Routine 07/11/2021 3:17 PM EST ZZZ HISTORICAL HEPATITIS C AB W/REFL TO HCV RNA, QN, PCR Routine 06/28/2021 12:00 AM EST HIV 1/2 ANTIGEN/ANTIBODY, FOURTH GENERATION W/RFL Routine 06/28/2021 12:00 AM EST from Last 3 Months or Most Recently Relevant to Health Maintenance Results * (ABNORMAL) THINPREP TIS PAP (07/11/2021 3:17 PM EST) Clinical Information: None given [facility] COMMENT SEE COMMENT [facility] Comment: EXPLANATORY NOTE: ? The Pap is a screening test for cervical cancer. It is ?? not a diagnostic test and is subject to false negative ?? and false positive results. It is most reliable when a ?? satisfactory sample, regularly obtained, is submitted ?? with relevant clinical findings and history, and when ?? the Pap result is evaluated along with historic and ?? current clinical information. ?? COMMENT: This Pap test has been evaluated with computer assisted technology. [facility] Metal Riveting Machine Operator : SEE COMMENT [facility] Comment: WAC, CT(ASCP) CT screening location: [address] ??[id number] General Categorization: EPITHELIAL CELL ABNORMALITY(A) [facility] Interpretation/R esult: Atypical Squamous Cells of Undetermined Significance (ASC-US)(A) [facility] LMP: NONE GIVEN [facility] PATHOLOGIST: SEE COMMENT [facility] Comment: Eliseo Pagan M.D., Board Certified in Anatomic and Clinical Pathology (electronic signature) Consulting Pathologist [facility] [address] [place] [address] ??[id number] Prev. BX: NONE GIVEN [facility] Prev. PAP: NONE GIVEN [facility] SOURCE: None given [facility] Statement Of Adequacy: SEE COMMENT [facility] Comment: Satisfactory for evaluation. Endocervical/transformation zone component present. 07/11/2021 3:17 PM EST Kell TURCIOS [facility] PATHOLOGY ORDERABLES Final Result [facility] [address] * HEPATITIS C AB W/REFL TO HCV RNA, QN, PCR (06/28/2021 12:00 AM EST) HEPATITIS C ANTIBODY NON-REACT BEBE NON-REACT BEBE [facility] INDEX 0.01 <1.00 [facility] Comment: ?? HCV antibody was non-reactive. There is no laboratory ?? evidence of HCV infection. ?? In most cases, no further action is required. However, if recent HCV exposure is suspected, a test for HCV RNA (test code 08530) is suggested. ?? For additional information please refer to http://education.[employer]/faq/NZD96u4 (This link is being provided for informational/ educational purposes only.) ?? 06/28/2021 Mery KWON HISTORICAL/NON ORDERABLE LABS Final Result Performing Organization Address [facility] de Phone Number [facility] [address] * HIV 1/2 ANTIGEN/ANTIBODY,FOURTH GENERATION W/RFL (06/28/2021 12:00 AM EST) HIV-1/2 ANTIGEN AND ANTIBODIES, 4TH GENERATION W/ REFLEX NON-REACT BEBE NON-REACT BEBE [facility] Comment: HIV-1 antigen and HIV-1/HIV-2 antibodies were not detected. There is no laboratory evidence of HIV infection. ?? PLEASE NOTE: This information has been disclosed to you from records whose confidentiality may be protected by state law. ??If your state requires such protection, then the state law prohibits you from making any further disclosure of the information without the specific written consent of the person to whom it pertains, or as otherwise permitted by law. A general authorization for the release of medical or other information is NOT sufficient for this purpose. ? For additional information please refer to http://education.Naonext.Travel.ru/faq/DWV914 (This link is being provided for informational/ educational purposes only.) ? The performance of this assay has not been clinically validated in patients less than 2 years old. ?? 06/28/2021 Mery KWON LAB BLOOD ORDERABLES Final Res ult Performing Organization Address [facility] de Phone Number [facility] [address] from Last 3 Months or Most Recently Relevant to Health Maintenance Insurance [place] [facility] MEDICAID LIMITED ADULT DENTAL - HSN FULL (MEDICAID) Care Teams Filtration Supervisor Relationship Specialty Start Date End Date Mery Masters FNP [address] [place], [place] [phone] PCP - General Family Medicine 07/03/21
--- OUTSIDE RECORDS SUMMARY | 2024-07-13 14:09 | XMS_ITS | Encounter Summary ---
Author Organization [employer] Address [address] [facility] 7 [place] [address] Care Team Providers Care Bulb Sorter Name Role Phone Mery Masters Primary Care Provider [phone] Reason for Visit * Reason Onset Date Comments Nurse Triage 06/20/2023 Encounter Details Date Type Department Care Team (Late st Contact Info) Description 06/20/2023 Telephone [facility] [address] [place] [address] Mery Masters FNP [address] [place], [place] [phone] Nurse Triage Social History Tobacco Use Types Packs/Day Years Used Date Smoking Tobacco: Never Passive Smoke Exposure: Never Smokeless Tobacco: Never Housing Stability Answer Date Recorded What is your housing situation today? I do not have housing (Staying with others, in a hotel, in a penitentiary, living outside on the street, on a [...] off services in your home? No 05/23/2023 Comments Unknown Sex and Gender Information Value Date Recorded Sex Assigned at Female 04/02/2022 10:39 AM EDT Legal Sex Female 10:39 AM EDT Gender Identity Female 04/02/2022 10:39 AM EDT Sexual Orientation Straight 04/02/2022 10 :39 AM EDT documented as of this encounter Miscellaneous Notes * Telephone Encounter - DOYLE Rodrigues - 06/22/2023 5:51 PM EST Please try to schedule for 30 minute (extended visit) mid-Jul or end of Jul with myself for POTS and dizziness. (Her address is in [place], so hopefully we can schedule her at [facility]) * Telephone Encounter - Ivy Lynn RN - 06/20/2023 12:22 PM EST called pt to triage, spoke to pt. through hondo machine driller. pt states left ear ache and decreased hearing. pt denies fever, illness symptoms, severe pain, or ear discharge. pt reports has POTS syndrome recently diagnosed and has difficulty walking. reviewed her F visit of 06/05. pt declines walkin center due to dizziness. advised that the dizziness associated with POTS is usually with position change and advised fall precautions and methods to avoid getting acutely dizzy. pt currently beingworked up for this. advised home care: rest, fluids, warm compresses, OTC soothing ear drops, fall precautions, and call back if worsening or new concerns. advised walk in center during operational hours as needed. will task to team nurses regarding follow up with PCP. pt understands and agrees with plan. insurance verified. Protocol Used: Earache (Adult) Protocol-Based Disposition: See in Office or Video Visit Today or Tomorrow Positive Triage Question: * Patient wants to be seen * All higher-acuity triage questions were negative Care Advice Discussed: * Pain Medicines * Apply Cold to the Area for Pain * Reasons To Call Back - Earache last more than 1 hour - High fever, severe headache, or stiff neck occurs - You become worse * Telephone Encounter - Dorys Jauregui - 06/20/2023 11:44 AM EST Symptom: Earache Outcome: Schedule a same-day appointment or talk to a nurse or provider today Reason: Caller denied all higher acuity questions The caller accepted this outcome documented in this encounter Plan of Treatment Upcoming Encounters Date Type Department Care Team (Late st Contact Info) Description 07/21/2024 11:00 AM EST Office Visit [facility] [address] [place] [address] Dany Carpenter documented as of this encounter Visit Diagnoses Not on filedocumented in this encounter Care Teams Bulb Sorter Relationship Specialty Start Date End Date Mery Masters FNP [address] [place] [phone] PCP - General Family Medicine 07/03/21 documented as of this encounter
--- OUTSIDE RECORDS SUMMARY | 2024-07-13 14:09 | XMS_ITS | Encounter Summary ---
Author Organization [employer] Address [address] [facility] 7 [place] [address] Care Team Providers Care Engineer Gas Pumping Station Name Role Phone Mery Masters Primary Care Provider [phone] Reason for Visit * Reason Onset Date Comments Nurse Triage 05/13/2023 Encounter Details Date Type Department Care Team (Late st Contact Info) Description 05/13/2023 Telephone [facility] MEDICINE [address] [place] [address] Mery Masters FNP [address] [place] [address] Nurse Triage Social History Tobacco Use Types Packs/Day Years Used Date Smoking Tobacco: Never Assessed Depression Answer Date Recorded Patient Health Questionnaire-9 Score 3 08/14/2023 Patient Health Questionnaire-9 Score 3 08/14/2023 Last PHQ-9: Questionnaire Data Not on file 0 08/14/2023 Housing Stability Answer Date Recorded What is your housing situation today? I do not have housing (Staying with others, in a hotel, in a senior care, living outside on the street, on a [...] encounter Miscellaneous Notes * Telephone Encounter - Hortensia Vicente RN - 05/13/2023 1:58 PM EST Discharge records requested from [facility] confirmation received. * Telephone Encounter - Tammie Cevallos RN - 05/13/2023 1:42 PM EST Admitted to [facility] 05/08--05/12 Medical Records number to obtain notes [phone] F Future Appointments Date Time Provider Department Center 05/20/2023 9:30 AM DOYLE Rodrigues [facility] Sent to care coordinators to obtain discharge summary and update HDF log. * Telephone Encounter - Tammie Cevallos RN - 05/13/2023 1:25 PM EST Call to Patsy Abdi, reports having elevated BP , dizziness and Headache with position,Changes. Spoke with Zoe patient mother who states that BP is 99/56 HR 67 When laying down and 133/101 HR 99 with sitting and standing. Becomes dizzy and lightheaded. YIN, dizziness and ear pain. Pt then informs that recently admitted to hospital at [facility] 05/08--05/12 (pt currently visiting in [place]) Per pt medications was changed Keppra 1500mg daily topiramate 200mg daily. Per pt is due to return to [place] this weekend. Pt provided Medical Records number to obtain notes [phone]. Pt wants follow up [facility] PCP upon return. Agrees to visit in [facility], booked for HDF. Reviewed home care advise and reasons to call back. Sent to care coordinators to obtain discharge summary and update HDF log. Protocol Used: Recent Medical Visit for Illness Follow-up Call (Adult) Protocol-Based Disposition: See in Office or Video Visit Today or Tomorrow Override (Final) Disposition: See in Office or Video Visit within 2 Weeks Override Reason: Patient out of town Future Appointments Date Time Provider Department Center 05/20/2023 9:30 AM DOYLE Rodrigues [facility] Video visit offer not recorded Positive Triage Question: * Patient wants to be seen * All higher-acuity triage questions were negative Care Advice Discussed: * Continue Treatment * Reasons To Call Back - You become worse * Telephone Encounter - Chema Lott - 05/13/2023 1:07 PM EST Symptom: Heartbeat Symptoms (Fast, Slow, or Irregular) Outcome: Schedule an urgent appointment (within 1 hour) or talk to a nurse or provider soon Reason: Getting worse The caller accepted this outcome Please contact at [phone] Indonesian documented in this encounter Plan of Treatment Upcoming Encounters Date Type Department Care Team (Late st Contact Info) Description 07/21/2024 11:00 AM EST Office Visit [facility] ADULT DENTAL [address] [place] [address] Dany Carpenter documented as of this encounter Visit Diagnoses Not on filedocumented in this encounter Care Teams Engineer Gas Pumping Station Relationship Specialty Start Date End Date Mery Masters FNP [address] [place] [address] PCP - General Family Medicine 07/03/21 documented as of this encounter
--- OUTSIDE RECORDS SUMMARY | 2024-07-13 14:09 | XMS_ITS | Encounter Summary ---
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); Iron deficiency anemia, unspecified iron deficiency anemia type; Xerosis of skin; Immunization due Social History Tobacco Use Types Packs/Day Years [...] the past 12 months, has t he [employer], gas, oil or water company threatened to [...] AM EDT documented as of this encounter Last Filed Vital Signs Vital Sign Reading Time Taken Comments Blood Pressure 116/63 07/13/2024 10:28 AM EST Pulse 80 07/13/2024 10:28 AM EST Temperature 36 ??C (96.8 ??F) 07/13/2024 10:28 AM EST Respiratory Rate 20 07/13/2024 10:28 AM EST Oxygen Saturation 99% 07/13/2024 10:28 AM EST Inhaled Oxygen Concentration - - Weight 57.2 kg (126 lb 2 oz) 07/13/2024 10:28 AM EST Height 165.9 cm (5' 5.31 ) 07/13/2024 10:[address] Body Mass Index 20.79 07/13/2024 10:28 AM EST documented in this encounter Progress Notes * DOYLE Rodrigues - 07/13/2024 10:15 AM EST Subjective Patient ID: Patsy Abdi is a 28 y.o. female with PMH epilepsy, LIANA with menorrhagia (wellcontrolled with IUD), migraines, and POTS who presents to the office for follow up visit. HPI: -Last PCP visit: 10/23/23. Visiting with son in [place]. Reports that she self tapered off all medications around March 2024. Not currently using medications for epilepsy or POTS, but has remained asymptomatic. No palpitations, seizures, dizziness, fatigue. Following up shortly with her specialists. Review of Systems Constitutional: Negative for chills and fever. HENT: Negative for congestion. Respiratory: Negative for cough, shortness of breath and wheezing. Cardiovascular: Negative for chest pain and palpitations. Gastrointestinal: Negative for diarrhea, nausea and vomiting. Skin: dryness Neurological: Negative for dizziness, facial asymmetry and headaches. Psychiatric/Behavioral: Negative for suicidal ideas. Objective Visit Vitals BP 116/63 (BP Location: Right arm, Patient Position: Sitting, BP Cuff Size: Adult) Pulse 80 Temp 96.8 ??F (36 ??C) (Oral) Resp 20 Ht 5' 5.31 (1.659 m) Wt 126 lb 2 oz (57.2 kg) SpO2 99% BMI 20.79 kg/m?? Smoking Status Never BSA 1.62 m?? Physical Exam Constitutional: Appearance: Normal appearance. HENT: Head: Atraumatic. Right Ear: Tympanic membrane and ear canal normal. Left Ear: Tympanic membrane and ear canal normal. Ears: Comments: Xerosis external ear bilat Cardiovascular: Rate and Rhythm: Normal rate and regular rhythm. Pulmonary: Effort: Pulmonary effort is normal. Breath sounds: Normal breath sounds. Neurological: Mental Status: She is alert and oriented to person, place, and time. Psychiatric: Mood and Affect: Mood normal. Behavior: Behavior normal. 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 Vasquez & [facility] Neurology Plasma metanephrine levels: wnl Tilt table test Jun 2023 ([facility]): orthostatic tachycardia with compensatory hypertension Current Assessment & Plan Currently well controlled off medication Encouraged to continue following with specialists and monitoring for symptoms Hematologic Iron deficiency anemia Current Assessment & Plan 05/23/2023 hb 12.9, MCV 77.2. No anemia, but (+) microcytosis. Plan to take iron 3x/week and recheck labs Menorrhagia has improved s/p IUD placement Recheck labs to determine if supplementation necessary Other Healthcare maintenance Overview Optometry: referral to [facility] eye care placed 08/27/23 Dental: Referral to [facility] Dental Jul 2023 Pap: 07/11/21: ASCUS, HPV negative (Due Jul 2024) Contraception: Liletta IUD inserted 08/16/21 (card user removal date: 08/17/2027) Relevant Orders Lipid Panel, Standard Hemoglobin A1c TSH with Reflex to Free T4 Comprehensive Metabolic Panel CBC auto differential Ferritin Iron And Total Iron Binding Capacity Vitamin D, 25-Hydroxy, Total, Immunoassay Chlamydia/N. Gonorrhoeae RNA, TMA, Urogenitial Hepatitis C Viral RNA, Quantitative, Real-Time PCR RPR (Monitor) with Reflex to Titer HIV-1/2 Antigen and Antibodies, Fourth Generation, with Reflexes Other Visit Diagnoses Xerosis of skin - Hydrocortisone cream 2.5% twice daily x 1 week Follow-up if symptoms persist Relevant Medications hydrocortisone 2.5 % cream Immunization due Relevant Orders Hepatitis B vaccine adult IM (Completed) Follow up: 6 months, sooner PRN documented in this encounter Miscellaneous Notes * Assessment & Plan Note - DOYLE Rodrigues - 07/13/2024 1:08 PM ESTAssociated Problem(s): Iron deficiency anemia 05/23/2023 hb 12.9, MCV 77.2. No anemia, but (+) microcytosis. 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) Followed by [facility] Neurology, encouraged to schedule follow up appt EEG wnl October 2022 through [facility] Neuro Previous rx: Topiramate 200mg BID, keppra 1000mg BID Currently off tx since March 2024 (self DC) and has had no seizures or symptoms since * Assessment & Plan Note - DOYLE Rodrigues - 07/13/2024 11:05 AM EST Associated Problem(s): POTS (postural orthostatic tachycardia syndrome) Currently well controlled off medication Encouraged to continue following with specialists and monitoring for symptoms documented in this encounter Plan of Treatment Upcoming Encounters Date Type Department Care Team (Late st Contact Info) Description 07/21/2024 11:00 AM EST Office Visit [facility] ADULT DENTAL [address] [place] [address] Dany Carpenter Scheduled Orders Name Type Priority Associated Diagnoses Orde r Schedule Lipid Panel, Standard Lab Routine Healthcare maintenance Expected: 07/13/2024 (Approximate), Expires: 07/13/2025 Hemoglobin A1c Lab Routine Healthcare maintenance Expected: 07/13/2024 (Approximate), Expires: 07/13/2025 TSH with Reflex to Free T4 Lab Routine Healthcare maintenance Expected: 07/13/2024 (Approximate), Expires: 07/13/2025 Comprehensive Metabolic Panel Lab Routine Healthcare maintenance Expected: 07/13/2024 (Approximate), Expires: 07/13/2025 CBC auto differential Lab Routine Healthcare maintenance Expected: 07/13/2024, Expires: 07/13/2025 Ferritin Lab Routine Healthcare maintenance Expected: 07/13/2024, Expires: 07/13/2025 Iron And Total Iron Binding Capacity Lab Routine Healthcare maintenance Expected: 07/13/2024, Expires: 07/13/2025 Vitamin D, 25-Hydroxy, Total, Immunoassay Lab Routine Healthcare maintenance Expected: 07/13/2024 (Approximate), Expires: 07/13/2025 Chlamydia/N. Gonorrhoeae RNA, TMA, Urogenitial Microbiology Routine Healthcare maintenance Expected: 07/13/2024, Expires: 07/13/2025 Hepatitis C Viral RNA, Quantitative, Real-Time PCR Lab Routine Healthcare maintenance Expected: 07/13/2024 (Approximate), Expires: 07/13/2025 RPR (Monitor) with Reflex to??Titer Lab Routine Healthcare maintenance Expected: 07/13/2024 (Approximate), Expires: 07/13/2025 HIV-1/2 Antigen and Antibodies, Fourth Generation, with Reflexes Lab Routine Healthcare maintenance Expected: 07/13/2024 (Approximate), Expires: 07/13/2025 documented as of this encounter Visit Diagnoses Diagnosis POTS (postural orthostatic tachycardia syndrome)- Primary Unspecified tachycardia Healthcare maintenance 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
--- OUTSIDE RECORDS SUMMARY | 2024-07-13 14:09 | XMS_ITS | Encounter Summary ---
Author Organization [employer] Address [address] [facility] 7 [place] [address] Care Team Providers Care Computer Aided Design Technician Name Role Phone Mery Masters DOYLE Primary Care Provider [phone] Reason for Visit * Reason Onset Date Comments Chart Prep 07/08/2024 Encounter Details Date Type Department Care Team ([facility] st Contact Info) Description 07/08/2024 Telephone [facility] MED & PEDS [address] [place] [address] Rolly Forrester MA Chart Prep Social History Tobacco Use Types Packs/Day Years [...] with others, in a hotel, in a mcc, living outside on the street, on a [...] encounter Miscellaneous Notes * Telephone Encounter - Rolly Barahona MA - 07/08/2024 3:47 PM EST Chart Prep Labs: done Images: done Vaccines due: yes Referrals: pending appt Screenings: n/a Overdue care gaps: Sbirt, SDOH, PHQ-9, PISQ documented in this encounter Plan of Treatment Upcoming Encounters Date Type Department Care Team (Late st Contact Info) Description 07/21/2024 11:00 AM EST Office Visit [facility] ADULT DENTAL [address] [place] [address] Dany Carpenter documented as of this encounter Visit Diagnoses Not on filedocumented in this encounter Additional Health Concerns Assessment Noted Time PHQ-9 Depression Total Score: 3 08/14/19 24 9:59 AM EDT documented as of this encounter Care Teams Computer Aided Design Technician Relationship Specialty Start Date End Date Mery Masters FNP [address] [place] [id number] PCP - General Family Medicine 07/03/21 documented as of this encounter
--- OUTSIDE RECORDS SUMMARY | 2024-07-13 14:10 | XMS_ITS | Encounter Summary ---
Author Organization [employer] Address [address] [facility] 7 [place] [address] Care Team Providers Care Block Captain Name Role Phone Mery Masters Primary Care Provider [phone] Reason for Visit * Reason Onset Date Comments Appointment Request 10/03/2023 Encounter Details Date Type Department Care Team ([facility] st Contact Info) Description 10/03/2023 Telephone [facility] MEDICINE [address] [place] [address] Mery Masters FNP [address] [place], [place] [phone] Appointment Request Social History Tobacco Use Types [...] with others, in a hotel, in a assisted, living outside on the street, on a [...] Telephone Encounter - Hortensia Vicente RN - 10/10/2023 1:54 PM EDT Returned call to pt regarding message below. Pt agrees to f/u appt on 10/23/23 in [facility]. * Telephone Encounter - DOYLE Rodrigues - 10/10/2023 1:45 PM EDT Please try to schedule her at some point during the month of October, thank you! * Telephone Encounter - Arsenio Bazan - 10/03/2023 11:10 AM EDT Tc from patient calling to request a follow-up appt from the Neurology appt on 09/24 to discuss the result as well as lab results documented in this encounter Plan of Treatment Upcoming Encounters Date Type Department Care Team (Late st Contact Info) Description 07/21/2024 11:00 AM EST Office Visit [facility] ADULT DENTAL [address] [place] [address] Dany Carpenter documented as of this encounter Visit Diagnoses Not on filedocumented in this encounter Additional Health Concerns Assessment Noted Time PHQ-9 Depression Total Score: 3 08/14/19 24 9:59 AM EDT documented as of this encounter Care Teams Block Captain Relationship Specialty Start Date End Date Mery Masters FNP [address] [place] [id number] PCP - General Family Medicine 07/03/21 documented as of this encounter
--- OUTSIDE RECORDS SUMMARY | 2024-07-13 14:10 | XMS_ITS | Encounter Summary ---
Author Organization [employer] Address [address] [facility] 7 [place] [address] Care Team Providers Care Beading Machine Operator Name Role Phone Mery Masters DOYLE Primary Care Provider Encounter Details Date Type Department Care Team ([facility] st Contact Info) Description 07/06/2024 Orders Only [facility] ADULT DENTAL [address] [place], [place] [phone] Xavier Paredes, DMD [address] [place] [address] Social History Tobacco Use Types Packs/Day Years [...] with others, in a hotel, in a care home, living outside on the street, on a [...] 11:00 AM EST Office Visit [facility] ADULT DENTAL [address] [place] [address] Dany Carpenter documented as of this encounter Visit Diagnoses Not on filedocumented in this encounter Additional Health Concerns Assessment Noted Time PHQ-9 Depression Total Score: 3 08/14/19 24 9:59 AM EDT documented as of this encounter Care Teams Beading Machine Operator Relationship Specialty Start Date End Date Mery Masters FNP [address] [place] [address] PCP - General Family Medicine 07/03/21 documented as of this encounter
--- OUTSIDE RECORDS SUMMARY | 2024-07-13 14:10 | XMS_ITS | Encounter Summary ---
Author Organization [employer] Address [address] [facility] [address] [place] [address] Care Team Providers Care Woods Laborer Name Role Phone Mery Masters DOYLE Primary Care Provider [phone] Encounter Details Date Type Department Care Team (Late st Contact Info) Description 06/25/2024 Telephone [facility] ADULT DENTAL [address] [place] [address] Kenny Vides, DMD [address] [place] [address] Social History Tobacco Use Types Packs/Day Years [...] with others, in a hotel, in a detention, living outside on the street, on a [...] encounter Miscellaneous Notes * Telephone Encounter - Carter Garcia - 06/25/2024 3:24 PM EST pt was not able to accept the available appointment. Pt will not be around and will call back once she gets back. documented in this encounter Plan of Treatment Upcoming Encounters Date Type Department Care Team (Late st Contact Info) Description 07/21/2024 11:00 AM EST Office Visit [facility] ADULT DENTAL [address] [place] [address] Dany Carpenter documented as of this encounter Visit Diagnoses Not on filedocumented in this encounter Additional Health Concerns Assessment Noted Time PHQ-9 Depression Total Score: 3 08/14/19 24 9:59 AM EDT documented as of this encounter Care Teams Woods Laborer Relationship Specialty Start Date End Date Mery Masters FNP [address] [place] [address] PCP - General Family Medicine 07/03/21 documented as of this encounter
[2024-07-13 16:07] LABS: MANUAL DIFF FLAG NO
[2024-07-13 16:15] LABS: Basophils Percent Auto 0.3 % (0-2); Eosinophils Absolute Auto 0.1 X10*3/uL (0.0-0.4); Eosinophils Percent Auto 1.5 % (0-4); Hematocrit 32.7 % (37.0-47.0); Hemoglobin 11.4 g/dl (12.0-16.0); Imm Gran Abs Auto 0.01 X10*3/uL (0.00-0.03); Imm Gran Pct Auto 0.2 % (0.0-0.4); Lymphocytes Absolute Auto 2.1 X10*3/uL (1.2-4.9); Lymphocytes Percent Auto 35.6 % (20-40); Mean Corpuscular HGB Conc 34.9 g/dl (31.0-35.0); Mean Corpuscular Hemoglobin 27.3 pg (27.0-33.0); Mean Corpuscular Volume 78.4 fL (80.0-98.0); Mean Platelet Volume 12.1 fL (9.4-12.3); Monocytes Absolute Auto 0.4 X10*3/uL (0.1-1.2); Neutrophils Absolute Auto 3.3 x10*3/uL (2.0-8.3); Neutrophils Percent Auto 55.4 % (45-73); Platelet Count 229 X10*3/uL (160-400); Red Blood Count 4.17 X10*6/uL (4.20-5.50); Red Cell Distribution Width 13.2 % (11.0-16.0)
[2024-07-13 16:28] LABS: Alanine Aminotransferase 18 U/L (0-31); Albumin Level 4.3 g/dL (3.5-5.0); Anion Gap 10 (12-20); Aspartate Amino Transferase 21 U/L (5-31); Bilirubin Total 1.4 mg/dL (0.0-1.0); Blood Urea Nitrogen 10 mg/dL (9-16); Carbon Dioxide 25 mmol/L (22-29); Chloride 109 mmol/L (96-108); Cholesterol 156 mg/dL (<200); Estimated Average Glucose 88 mg/dL; Estimated Glomerular Filt Rate > 60; Glucose Random 87 mg/dL (60-115); HDL Cholesterol 67 mg/dL (>40); Hemoglobin A1C 83.4903 umol/L; Hemoglobin A1c % 4.7 % (<6.0); Iron 143 mcg/dL (30-160); LDL Cholesterol Calculated 77 mg/dL (<100); Percent Iron Saturation 59 % (15-50); Potassium 3.9 mmol/L (3.3-5.1); Sodium 140 mmol/L (135-145); Total Hemoglobin (HGBA1C) 3022.1484 umol/L; Total Iron Binding Capacity 243 mcg/dL (228-428); Total Protein 7.6 g/dL (6.5-8.0); Triglycerides 61 mg/dL (<150); Unsaturated Iron Binding 100 ug/dL
[2024-07-13 16:44] LABS: Alkaline Phosphatase 38 U/L (39-117)
[2024-07-13 16:53] LABS: Ferritin 80 ng/mL (10-122); TSH reflex Free T4 0.92 uIU/mL (0.32-4.0); Vitamin D 25-OH Total 17.9 ng/mL (>30)
[2024-07-14 04:38] LABS: HIV AB/AG Nonreactive (Nonreactive); HIV Num 1 0.06 S/CO (0.00-0.99)
[2024-07-14 05:34] LABS: CT PCR NOT DETECTED (Not Detect.); NG PCR NOT DETECTED (Not Detect.)
[2024-07-14 13:13] LABS: Bacterial Vaginosis PCR NEGATIVE (Negative); Candida Group PCR NOT DETECTED (Not Detect); Candida glab krusei PCR NOT DETECTED (Not Detect); Trichomonas vaginalis PCR NOT DETECTED (Not Detect)
[2024-07-14 22:54] LABS: HCV Log PCR <1.18 NOT DETECTED Log IU/mL (NOT DETECTED); HepC Viral Load <15 NOT DETECTED IU/mL (NOT DETECTED)
[2024-07-15 12:28] LABS: RPR Rapid Plasma Reagin NON-REACTIVE (NON-REACTIVE)
[2024-07-20 09:18] LABS: HPV High Risk Positive (Negative)
[2024-07-20 09:19] LABS: HPV Genotype 16 Negative (Negative); HPV Genotype 18 Negative (Negative)
== END 2024-07-13 13:04 | disposition home or self-care (01) ==
LOC: HO.HHCL 13:03
PROVIDERS: Advanced Practice Midwife; Visit Provider Registered Nurse
DX: Z00.00 Encounter for general adult medical examination without abnormal findings (principal); Z13.1 Encounter for screening for diabetes mellitus; R87.810 Cervical high risk human papillomavirus (HPV) DNA test positive; R87.610 Atypical squamous cells of undetermined significance on cytologic smear of cervix (ASC-US); Z97.5 Presence of (intrauterine) contraceptive device
CPT/HCPCS: 80053; 80061; 81515; 82306; 82728; 83036; 83540; 84443; 85025; 86592; 87389; 87491; 87522; 87591; 87626; 88175

== ENCOUNTER 2024-07-14 09:39 | Outpatient (AMB) | payer MEDICAID, SELFPAY ==
--- NOTE | 2024-07-14 09:41 | MHC.OFFVIS ---
Vital Signs 07/14/24 09:42 Height 5 ft 6 in Weight 126 lb BMI 20.3 BP 90/62 Blood Pressure Location Lt brachial Position Sitting Pulse 66 Pulse Source Pulse Oximeter Intake Visit Reasons: 3 mth f/up r/s Computer Support Specialist Instructor Required: Yes Computer Support Specialist Instructor Language: Small Appliance Assembly Supervisor Name: VOICE GOODE [phone] Allergies No Known Allergies Allergy (Verified 07/14/24 09:44) Medication List - Last Reconciled 07/14/24 by Isis Stein NP-C No Known Home Meds HPI HPI 3 mth f/up r/s: Details: Patsy is a 28-year-old female with history presyncope, pots who presents for follow-up. Her last prior visit was 09/05/2023. Today she states that since March she has been doing extremely well. She went to a service at her mu-ism and was healed. She stopped her metoprolol, fludrocortisone, midodrine and states that she has not had any concerning symptoms. She no longer gets lightheaded, no presyncope, no syncope. She reports normal activity tolerance including prolonged standing. She does not push p.o. fluids or salt intake like she used to. She says her life is back to normal. No chest discomfort, heart palpitations or shortness of breath. Certified delivery and mail sorter used. [facility] Medical History Seizure disorder delivery delivered Chronic headaches Heavy menstrual bleeding LIANA (iron deficiency anemia) Seizures Surgical History History of delivery Family History Brother Diabetes mellitus, type 2 Father Diabetes mellitus type 2, controlled Paternal Grandmother Breast cancer Social History Household Members: Children Housing: House Are you a primary nonfarm animal caretaker to a significant other at home: No Do you presently have visiting nurse or other home services: No Alcohol intake: never Patient Tobacco Use Status: Never used Tobacco service: No Current occupational status: unemployed Female Reproductive History Menstrual Age of Menarche: 12 Review of Systems Const All systems reviewed & are unremarkable except as noted in HPI and below ENT Denies dizziness Card Denies chest pain, Denies chest pain at rest, Denies chest pain with activity, Denies rapid heart rate, Denies pedal edema, Denies edema, Denies leg edema, Denies lightheadedness, Denies palpitations, Denies dyspnea, Denies dyspnea on exertion and Denies orthopnea Resp Denies cough, Denies dyspnea and Denies dyspnea on exertion GI Denies hematochezia and Denies change in stool character Musc Denies abnormal gait, Denies limited range of motion, Denies muscle cramps, Denies muscle weakness, Denies numbness, Denies radiating pain into limb, Denies stiffness and Denies tingling Neuro Denies abnormal gait, Denies dizziness, Denies numbness and Denies tingling Endo Denies palpitations Physical Exam Vital Signs: Last Vital Signs Pulse 66 07/14/24 09:42 BP 90/62 07/14/24 09:42 BMI result Body Mass Index 20.3 Const General: cooperative, healthy appearing, comfortable and no acute distress Orientation/consciousness: patient oriented x3 Neck Neck: Yes normal visual inspection Resp Effort & Inspection: normal respiratory effort Auscultation: clear to auscultation bilaterally, no crackles, no rales, no rhonchi and no wheezes Cardio Jugular venous distension: no JVD Rate: regular rate Rhythm: regular rhythm Heart sounds: S1 normal heart sound present, S2 normal heart sound present, no murmurs and no rubs Neuro General: patient oriented x3 Extrem General: Yes normal to inspection Psych Appearance: grossly normal Mental Status: mental status grossly normal Speech and movement: Normal speech and movement present Assessment & Plan Assessment & Plan (1) POTS (postural orthostatic tachycardia syndrome): Code(s): G90.A - Postural orthostatic tachycardia syndrome [POTS] Category: Medical Plan: Prior diagnosis of POTS with abnormal tilt-table test 06/18/2023. Echocardiogram done 05/20/2023 was normal study. She had been on medical management including metoprolol, fludrocortisone and midodrine. She was having frequent symptoms including presyncope until March 2024 when she went to a mu-ism service and was healed. Since then she has stopped all her medications and denies any symptoms. She reports normal activity tolerance. On exam today her blood pressure was initially 90/62, recheck done by me 102/60 sitting, 108/62 standing. Informed her that if she does have recurrent symptoms she should again increase her fluid intake up to at least 64 oz daily and increase p.o. salt intake. Medication management can be restarted if warranted. At this time her cardiology follow-up will be as needed. She is very agreeable to this plan. (2) Near syncope: Code(s): R55 - Syncope and collapse Category: Medical Plan: As above Plan Time spent on chart review, documentation, interview assessment Coding Level of Care Code Est Pt Level 3 (86722) Diagnoses POTS (postural orthostatic tachycardia syndrome) G90.A Near syncope R55 Time Spent (min) 24
[2024-07-14 09:42] VITALS: BP 90/62; PULSE 66; BMI 20.3
--- OUTSIDE RECORDS SUMMARY | 2024-07-14 10:46 | XMS_ITS | Encounter Summary ---
Author Organization [employer] Address [address] [facility] [address] [place] [address] Care Team Providers Care Mass Spectrometry Manager Name Role Phone Mery Masters DOYLE Primary Care Provider [phone] Reason for Visit * Reason Onset Date Comments Chart Prep 07/08/2024 Encounter Details Date Type Department Care Team ([facility] st Contact Info) Description 07/08/2024 Telephone [facility] [address] [place] [address] Rolly Forrester [place] Chart Prep Social History [...] with others, in a hotel, in a custodial, living outside on the street, on a [...] Care Team (Late st Contact Info) Description 07/17/2024 8:00 AM EST Office Visit [facility] [address] [place] [address] Xavier Paredes, DMD [address] [place] [address] 07/21/2024 11:00 AM EST Office Visit [facility] [address] [place] [address] Dany Carpenter documented as of this encounter Visit Diagnoses Not on filedocumented in this encounter Additional Health Concerns Assessment Noted Time PHQ-9 Depression Total Score: 3 08/14/19 24 9:59 AM EDT documented as of this encounter Care Teams Mass Spectrometry Manager Relationship Specialty Start Date End Date Phalen, Mery, RETURNING OFFICER [address] [place] [address] PCP - General Family Medicine 07/03/21 documented as of this encounter
--- OUTSIDE RECORDS SUMMARY | 2024-07-14 10:46 | XMS_ITS | Encounter Summary ---
Author Organization [facility] Address [address] [place] [address] Care Team Providers Care Graduate Fellow Name Role Phone Mery Masters Primary Care Provider [phone] Reason for Visit * Reason Onset Date Comments transportation issue 07/14/2021 Encounter Details Date Type Department Care Team (Late st Contact Info) Description 07/14/2021 Telephone [facility] [address] [place] [address] [phone] Telephone Intake, Staff transportation issue Social History [...] - 07/14/2021 9:28 AM EST Mery Masters- [facility] which is this pt's primary care provider [...] . A good call back number is [phone]. documented in this encounter Plan of Treatment Not on file documented as of this encounter Visit Diagnoses Not on filedocumented in this encounter Care Teams Graduate Fellow Relationship Specialty Start Date End Date Mery Masters [address] [place] [id number] PCP - General Family Medicine 08/16/23 documented as of this encounter
--- OUTSIDE RECORDS SUMMARY | 2024-07-14 10:47 | XMS_ITS | Encounter Summary ---
Author Organization [employer] Address [address] [facility] [address] [place] [address] Care Team Providers Care Pipe Changer Name Role Phone JoniMery mcginnis DOYLE Primary Care Provider [phone] Encounter Details Date Type Department Care Team ([facility] st Contact Info) Description 06/25/2024 Telephone [facility] [address] [place] [address] Kenny Vides, DMD [address] [place] [address] Social History Tobacco Use Types Packs/Day Years [...] with others, in a hotel, in a long-term, living outside on the street, on a [...] Description 07/17/2024 8:00 AM EST Office Visit [facility] [address] [place] [address] Xavier Paredes DMD [address] [place] [address] 07/21/2024 11:00 AM EST Office Visit [facility] [address] [place] [address] Dany Carpenter documented as of this encounter Visit Diagnoses Not on filedocumented in this encounter Additional Health Concerns Assessment Noted Time PHQ-9 Depression Total Score: 3 08/14/19 24 9:59 AM EDT documented as of this encounter Care Teams Pipe Changer Relationship Specialty Start Date End Date Mery Masters FNP [address] [place] [address] PCP - General Family Medicine 07/03/21 documented as of this encounter
--- OUTSIDE RECORDS SUMMARY | 2024-07-14 10:47 | XMS_ITS | Encounter Summary ---
Author Organization [employer] Address [address] [facility] [address] [place] [address] Care Team Providers Care Building Insulation Installer Name Role Phone Mery Masters Primary Care Provider [phone] Encounter Details Date Type Department Care Team ([facility] st Contact Info) Description 07/13/2024 10:15 AM EST Office Visit [facility] [address] [place], [place] [phone] Mery Masters FNP [address] [place], [place] [phone] POTS (postural orthostatic tachycardia syndrome) (Primary Dx); [...] the past 12 months, has t he [employer], gas, oil or water company threatened to [...] PCP visit: 10/23/23. [place]. Reports that she self tapered off all [...] (CMS/HCC) Current Assessment & Plan Followed by [facility] Neurology EEG wnl October 2022 through [facility] Neuro Previous rx: Topiramate 200mg BID, keppra 1000mg BID Currently off tx since March 2024 (self DC) and has had no seizures or symptoms since POTS (postural orthostatic tachycardia syndrome) - Primary Overview Diagnosed during [facility] Ad[place] May 2023 Previous tx: midodrine 10mg TID, metoprolol tartrate 12.5mg BID, and fludrocortisone 0.1mg daily Following with [facility] Cards - Dr. Vasquez & [facility] Neurology Plasma metanephrine levels: wnl Tilt [...] Other Healthcare maintenance Overview Optometry: referral to [facility] eye care placed 08/27/23 Dental: Referral to [facility] Dental Jul 2023 Pap: 07/11/21: ASCUS, HPV [...] epilepsy without status epilepticus (CMS/HCC) Followed by [facility] Neurology, encouraged to schedule follow up appt EEG wnl October 2022 through [facility] Neuro Previous rx: Topiramate 200mg BID, [...] Description 07/17/2024 8:00 AM EST Office Visit [facility] [address] [place] [address] Xavier Paredes DMD [address] [place] [address] 07/21/2024 11:00 AM EST Office Visit [facility] [address] [place] [address] Dany Carpenter Scheduled Orders Name Type Priority Associated Diagnoses Orde r Schedule Hepatitis C Viral RNA, Quantitative, Real-Time PCR Lab Routine Healthcare maintenance Expected: 07/13/2024 (Approximate), Expires: 07/13/2025 RPR (Monitor) with Reflex to??Titer Lab Routine Healthcare maintenance Expected: 07/13/2024 (Approximate), Expires: 07/13/2025 documented as of this encounter Procedures Procedure Name Priority Date/Time Associated Diagnosis Comments VITAMIN D,25-OH,TOTAL,IA Routine 07/13/2024 1:15 PM EST Healthcare maintenance TSH W/REFLEX TO FT4 Routine 07/13/2024 1 :15 PM EST Healthcare maintenance CBC WITH AUTO DIFFERENTIAL Routine 07/13/2024 1:15 PM EST Healthcare maintenance IRON AND TOTAL IRON BINDING CAPACITY Routine 07/13/2024 1:15 PM EST Healthcare maintenance CHLAMYDIA/N. GONORRHOEAE RNA, TMA, UROGENITAL Routine 07/13/2024 1:15 PM EST Healthcare maintenance HIV 1/2 ANTIGEN/ANTIBODY, FOURTH GENERATION W/RFL Routine 07/13/2024 1:15 PM EST Healthcare maintenance HEMOGLOBIN A1C Routine 07/13/2024 1:15 PM EST Healthcare maintenance FERRITIN Routine 07/13/2024 1:15 PM EST Healthcare maintenance LIPID PANEL, STANDARD Routine 07/13/2024 1:15 PM EST Healthcare maintenance COMPREHENSIVE METABOLIC PANEL Routine 07/13/2024 1:15 PM EST Healthcare maintenance documented in this encounter Results * HIV-1/2 Antigen and Antibodies, Fourth Generation, with Reflexes (07/13/2024 1:15 PM EST) [facility] HIV AB/AG Nonreactive Nonreactive [facility] Comment:HIV-1 p24 Ag and/or HIV-1/HIV-2 Ab not detected.A test result that is nonreactive does not exclude thepossibility of exposure to or infection with HIV-1 and/orHIV-2. Nonreactive results in this assay for individualswith prior exposure to HIV-1 and/or HIV-2 may be due toantigen and antibody levels that are below the limit ofdetection of this assay.The [employer] HIV Ag/Ab Combo assay result andsupplemental assay results should be interpreted inconjunction with the patient's clinical presentation,history and other laboratory results. If the results areinconsistent with clinical evidence, additional testing issuggested to confirm the result. Blood Venous blood specimen / Unknown 07/13/2024 1:15 PM EST 07/13/2024 4:02 PM EST us Mery Masters SPOOLING MACHINE OPERATOR LAB BLOOD ORDERABLES Final Res ult [facility] [address] [place] [phone] [phone] * Chlamydia/N. Gonorrhoeae RNA, TMA, Urogenitial (07/13/2024 1:15 PM EST) CT PCR NOT DETECTED Not Detect. [facility] Comment:A not detected test result does not exclude the possibilityof infection because test results can be affected byimproper specimen collection, concurrent antibiotic therapy,or the number of organisms in the specimen which may bebelow the sensitivity of the test. As with many diagnostictests, results from the Xpert CT/NG assay should beinterpreted in conjunction with other laboratory andclinical data available to the clinician.Xpert CT/NG performance has not been evaluated in patientsless than 14 years of age. The assay should not be used forthe evaluationof suspected sexual abuse or for other medico-legalindications. Additional testing is recommended in anycircumstance when false positive or false negative resultscould lead to adverse medical, social or psychologicalconsequences. NG PCR NOT DETECTED Not Detect. [facility] Comment:A not detected test result does not exclude the possibilityof infection because test results can be affected byimproper specimen collection, concurrent antibiotic therapy,or the number of organisms in the specimen which may bebelow the sensitivity of the test. As with many diagnostictests, results from the Xpert CT/NG assay should beinterpreted in conjunction with other laboratory andclinical data available to the clinician.Xpert CT/NG performance has not been evaluated in patientsless than 14 years of age. The assay should not be used forthe evaluationof suspected sexual abuse or for other medico-legalindications. Additional testing is recommended in anycircumstance when false positive or false negative resultscould lead to adverse medical, social or psychologicalconsequences. Urine (Urine, Random) 07/13/2024 1:15 PM EST 07/13/2024 4:01 PM EST Narrative [facility] - 07/14/2024 5:34 AM EST Urine Mery Masters [facility] MICROBIOLOGY - GENERAL ORD ERABLES Final Result Performing Organization Address [facility] Co de Phone Number [facility] [address] [place] [phone] * (ABNORMAL) Vitamin D, 25-Hydroxy, Total, Immunoassay (07/13/2024 1:15 PM EST) Vitamin D 25-OH Total 17.9(L) >30 ng/mL [facility] Comment:Health Based Referen ce Values*< 20 ng/mL Hoaujmdnz90-29 ng/mL Insufficient> 30 ng/mL Sufficient*Preeti ÁLVAREZ. N Engl J Med. 2007;357:266-280Care must be taken in interpreting Vitamin D results fromdifferent laboratories and methodologies. Published datademonstrated that results from patients undergoinghemodialysis may show a negative bias when tested withvarious automated 25-OH vitamin D assays when compared toLC-MS/MS.When testing samples from patients whose predominant form ofVitamin D is Vitamin D2, such as patients receiving VitaminD2 supplementation, results that are subtherapeutic shouldbe confirmed with another method such as LC-MS/MS. Blood Venous blood specimen / Unknown 07/13/2024 1:15 PM EST 07/13/2024 4:02 PM EST Mery Masters [facility] BLOOD ORDERABLES Final Res ult Performing Organization Address [facility] Co de Phone Number [facility] [address] [place] [phone] * (ABNORMAL) Iron And Total Iron Binding Capacity (07/13/2024 1:15 PM EST) Pathologist [facility] Iron 143 30 - 160 mcg/dL [facility] Total Iron Binding Capacity 243 228 - 428 mcg/dL [facility] Percent Iron Saturation 59(H) 15 - 50 % [facility] Unsaturated Iron Binding 100 ug/dL [facility] Blood Venous blood specimen / Unknown 07/13/2024 1:15 PM EST 07/13/2024 4:02 PM EST Mery Phalen SPOOLING MACHINE OPERATOR LAB BLOOD ORDERABLES Final Res ult Performing Organization Address [facility]/ZIP Co de Phone Number [facility] [address] [place] [address] [phone] * Ferritin (07/13/2024 1:15 PM EST) Pathologist [facility] Ferritin 80 10 - 122 ng/mL [facility] Blood Venous blood specimen / Unknown 07/13/2024 1:15 PM EST 07/13/2024 4:02 PM EST Mery Masters SPOOLING MACHINE OPERATOR LAB BLOOD ORDERABLES Final Res ult Performing Organization Address [facility] de Phone Number [facility] [address] [place] [phone] * (ABNORMAL) CBC auto differential (07/13/2024 1:15 PM EST) Pathologist [facility] White Blood Count 6.0 4.8 - 10.8 X10*3/uL [facility] Red Blood Count 4.17(L) 4.20 - 5.50 X10*6/uL [facility] Hemoglobin 11.4(L) 12.0 - 16.0 g/dl [facility] Hematocrit 32.7(L) 37.0 - 47.0 % [facility] Mean Corpuscular Volume 78.4(L) 80.0 - 98.0 fL [facility] Mean Corpuscular Hemoglobin 27.3 27.0 - 33.0 pg [facility] Mean Corpuscular HGB Conc 34.9 31.0 - 35.0 g/dl [facility] Red Cell Distribution Width 13.2 11.0 - 16.0 % [facility] Platelet Count 229 160 - 400 X10*3/uL [facility] Mean Platelet Volume 12.1 9.4 - 12.3 fL [facility] Neutrophils Percent Auto 55.4 45 - 73 % [facility] Imm Gran Pct Auto 0.2 0.0 - 0.4 % [facility] Lymphocytes Percent Auto 35.6 20 - 40 % [facility] Monocytes Percent Auto 7.0 2 - 11 % [facility] Eosinophils Percent Auto 1.5 0 - 4 % [facility] Basophils Percent Auto 0.3 0 - 2 % [facility] NRBC Pct Auto 0.0 0.0 - 0.2 /100WBC [facility] Neutrophils Absolute Auto 3.3 2.0 - 8.3 x10*3/uL [facility] Imm Gran Abs Auto 0.01 0.00 - 0.03 X10*3/uL [facility] Lymphocytes Absolute Auto 2.1 1.2 - 4.9 X10*3/uL [facility] Monocytes Absolute Auto 0.4 0.1 - 1.2 X10*3/uL [facility] Eosinophils Absolute Auto 0.1 0.0 - 0.4 X10*3/uL [facility] Basophils Absolute Auto 0.0 0.0 - 0.2 X10*3/uL [facility] NRBC Abs Auto 0.000 0.0 - 0.012 X10*3/uL [facility] Blood Venous blood specimen / Unknown 07/13/2024 1:15 PM EST 07/13/2024 4:02 PM EST us Mery Masters SPOOLING MACHINE OPERATOR LAB BLOOD ORDERABLES Final Res ult [facility] [address] [place] [phone] * (ABNORMAL) Comprehensive Metabolic Panel (07/13/2024 1:15 PM EST) Sodium 140 135 - 145 mmol/L [facility] Potassium 3.9 3.3 - 5.1 mmol/L [facility] Chloride 109(H) 96 - 108 mmol/L [facility] Carbon Dioxide 25 22 - 29 mmol/L [facility] Anion Gap 10(L) 12 - 20 [facility] Urea Nitrogen (BUN) 10 9 - 16 mg/dL [facility] Creatinine, Serum 0.61 0.5 - 1.4 mg/dL [facility] Estimated Glomerular Filt Rate >60 [facility] Comment:Chronic Kidney Disea se: Estimated GFR < 60 mL/min/1.47h5Jxgmsl Kidney Disease: Estimated GFR < 15 mL/min/1.73m2 Glucose 87 60 - 115 mg/dL [facility] Calcium 9.0 8.4 - 10.2 mg/dL [facility] Bilirubin, Total 1.4(H) 0.0 - 1.0 mg/dL [facility] Aspartate Amino Transferase 21 5 - 31 U/L [facility] Alanine Aminotransferase 18 0 - 31 U/L [facility] Total Protein 7.6 6.5 - 8.0 g/dL [facility] Albumin Level 4.3 3.5 - 5.0 g/dL [facility] Alkaline Phosphatase 38(L) 39 - 117 U/L [facility] Blood Venous blood specimen / Unknown 07/13/2024 1:15 PM EST 07/13/2024 4:02 PM EST us Mery Masters SPOOLING MACHINE OPERATOR LAB BLOOD ORDERABLES Final Res ult [facility] [address] [place] [phone] * TSH with Reflex to Free T4 (07/13/2024 1:15 PM EST) TSH reflex Free T4 0.92 0.32 - 4.0 uIU/mL [facility] Blood 07/13/2024 1:15 PM EST 07/13/2024 4:02 PM EST Mery Masters [facility] BLOOD ORDERABLES Final Res ult Performing Organization Address [facility] de Phone Number [facility] [address] [place] [phone] * Hemoglobin A1c (07/13/2024 1:15 PM EST) Hemoglobin A1c 4.7 <6.0 % [facility] Comment:Hemoglobin A1C Refer ence Range Adults: 4.8 - 6.0 % Non diabetic: < 6.0 % Goal: < 7.0 %Additional Action Suggested: > 8.0 %Note: Hemoglobin A1c results are invalid for patients with abnormal amounts of HbF. Blood transfusions may impact the HbA1c concentration in the patient sample. Estimated Average Glucose 88 mg/dL [facility] Comment:eAG = Estimated ave rage glucose which is %A1C expressed asaverage glucose, using the formula of the Q5D-YimalmsFqpetei Glucose study (ADAG), Diabetes Care, Vol.31,#8,Jan. 2007 Blood Venous blood specimen / Unknown 07/13/2024 1:15 PM EST 07/13/2024 4:02 PM EST Merycodie Masters [facility] BLOOD ORDERABLES Final Res ult Performing Organization Address [facility] Co de Phone Number [facility] [address] [place] [phone] * Lipid Panel, Standard (07/13/2024 1:15 PM EST) Triglycerides 61 <150 mg/dL [facility] Comment:Desirable Triglyceri de: less than 150 mg/dLBorderline High Triglyceride 150-199 mg/dLHigh Triglyceride: 200-499 mg/dLVery High Triglyceride: greater than or equal to 5OO mg/dL Cholesterol 156 <200 mg/dL [facility] Comment:Desirable Cholestero l: less than 200 mg/dLBorderline High Cholesterol: 200-239 mg/dLHigh Cholesterol: greater than 239 mg/dL LDL Cholesterol Calculated 77 <100 mg/dL [facility] Comment:Desirable LDL: less than 100 mg/dLNear Optimal/Above Optimal LDL: 110- 129 mg/dLBorderline High LDL: 130-159 mg/dLHigh LDL: 160-189 mg/dLVery High LDL: greater than or equal to 190 mg/dL HDL Cholesterol 67 >40 mg/dL [facility] Comment:Desirable HDL: great er than 40 mg/dL Note: This HDL assay may give artificially low results in patients with liver disease. 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
--- OUTSIDE RECORDS SUMMARY | 2024-07-14 10:47 | XMS_ITS | Encounter Summary ---
Author Organization [employer] Address [address] [facility] 7 [place] [address] Care Team Providers Care Purchasing Intern Name Role Phone Mery Masters Primary Care Provider [phone] Reason for Visit * Reason Onset Date Comments Appointment Request 08/20/2022 Encounter Details Date Type Department Care Team (Late st Contact Info) Description 08/20/2022 Telephone [facility] [address] [place] [address] Mery Masters FNP [address] [place] [address] Appointment Request Social History Tobacco Use Types [...] 3:02pm yr ) Please contact pt at [phone] documented in this encounter Plan of Treatment Upcoming Encounters Date Type Department Care Team (Late st Contact Info) Description 07/17/2024 8:00 AM EST Office Visit [facility] [address] [place] [address] Xavier Paredes, DMD [address] [place] [address] 07/21/2024 11:00 AM EST Office Visit [facility] [address] [place] [phone] Dany Carpenter documented as of this encounter Visit Diagnoses Not on filedocumented in this encounter Care Teams Purchasing Intern Relationship Specialty Start Date End Date Mery Masters FNP [address] [place] [phone] PCP - General Family Medicine 07/03/21 documented as of this encounter
--- OUTSIDE RECORDS SUMMARY | 2024-07-14 10:47 | XMS_ITS | Referral Summary ---
Author Organization [facility] Address [address] [place] [address] Care Team Providers Care Doctor Of Medicine Name Role Phone Mery Masters Primary Care Provider [phone] Allergies No known active allergies Medications topiramate [...] Currently on Midrodrine, Metoprolol, Fluodrocortisone [place] [facility] - Dr Vasquez Assessment & Plan [...] maneuvers such as leg crossing and squatting. [email or web address].org/mvwnsi-yf-lekbffngro/nkv-wbgakm-dw-[email or web address] /post [email or web address]-[email or web address]-syndrome Migraine without aura and wi thout status [...] female with LIANA, migraines, who presents to [facility] for routine follow-up regarding [...] of Treatment Not on file Insurance [address] [place] [id number] [facility] HSNO/FREE CARE Care Teams Doctor Of Medicine Relationship Specialty Start Date End Date Mery Masters [address] [place] [phone] PCP - General Family Medicine 08/16/23
--- OUTSIDE RECORDS SUMMARY | 2024-07-14 10:47 | XMS_ITS | Clinical Summary ---
Author Organization [facility] Address [address] [place] [address] Care Team Providers Care Instructional Technology Teacher Name Role Phone Mery Masters Primary Care Provider [phone] Allergies No known active allergies Medications topiramate [...] Currently on Midrodrine, Metoprolol, Fluodrocortisone [place] [facility] [place] - Dr Vasquez Assessment & Plan [...] maneuvers such as leg crossing and squatting. [email or web address].acc.org/yhyiwp-vn-ahhrccsskw/jea-aaxwht-ho-remember//51 /post [email or web address]-[email or web address]-syndrome Migraine without aura and wi thout status [...] female with LIANA, migraines, who presents to [facility] for routine follow-up regarding [...] patient's age to complete this topic Insurance [facility] [id number] HS/FREE CARE Care Teams Instructional Technology Teacher Relationship Specialty Start Date End Date Mery Masters [address] [place] [phone] PCP - General Family Medicine 08/16/23
--- OUTSIDE RECORDS SUMMARY | 2024-07-14 10:47 | XMS_ITS | Encounter Summary ---
Author Organization [employer] Address [address] [facility] [address] [place] [address] Care Team Providers Care Slot Service Specialist Name Role Phone Joniras Mery DOYLE Primary Care Provider [phone] Reason for Referral * Imaging (Urgent) - Authorized Specialty Diagnoses / Procedures Referred By Contmichael t Referred To Contact Radiology Diagnoses Mass overlapping multiple quadrants of left breast Procedures BI Mammogram Diagnostic Tomosynthesis Bilateral Kell Pritchett CNM [address] [place] [address] Phone: tel: fax: [address] Phone: tel: fax: Referral ID Status Reason Start Date Expiration Date V isits Requested Visits Authorized [id number] Authorized 07/13/2024 07/13/2025 1 1 * Imaging (Urgent) - Authorized Specialty Diagnoses / Procedures Referred By Contac t Referred To Contact Radiology Diagnoses Mass overlapping multiple quadrants of left breast Procedures BI US Breast Complete Left Kell Pritchett CNM [address] [place] [address] Phone: tel: fax: [address] Phone: tel: fax: Referral ID Status Reason Start Date Expiration Date V isits Requested Visits Authorized [id number] Authorized 07/13/2024 07/13/2025 1 1 Reason for Visit * Reason Comments Gynecologic Exam Encounter Details Date Type Department Care Team (Latest Contact Info) Description 07/13/2024 1:45 PM EST Procedure Visit [facility] [address] [place] [address] Kell Pritchett CNM [address] [place] [address] Cervical cancer screening (Primary Dx); Checking of intrauterine device; Mass overlapping multiple quadrants of left breast; Vaginal discharge Social History Tobacco Use Types Packs/Day Years [...] 16 07/13/2024 1:55 PM EST Oxygen Saturation - - Inhaled Oxygen Concentration - - Weight 57.4 kg (126 lb 8 oz) 07/13/2024 1:55 PM EST Height 167.6 cm (5' 6 ) 07/13/2024 1:55 PM EST Body Mass Index 20.42 07/13/2024 1:55 PM EST documented in this encounter Progress Notes * Kell Pritchett CNM - 07/13/2024 1:45 PM EST Images from the original note were not included. Subjective Patient ID: Patsy Abdi is a 28 y.o. female who presents for pap Liletta placed 08/16/2021 for treatment of menorrhagia. Pap ASCUS, HPV neg, GC/Chlamydia/trichomonasnegative 07/2021. Normal pelvic ultrasound prior to IUD insertion. Largely amenorrheic with IUD, which she is pleased about. Gets 1-2 days of cramping a month. Notes some vaginal discharge, no other vaginal/urinary symptoms. Also notes new onset left breast pain/lump. No triggering factors. No family history of breast/GENERAL ASSIGNMENT REPORTER cancer that she is aware of. No current partner, not planning in the next year. Normal iron studies 09/2023 Lab Results Component Value Date HGB 12.6 09/27/2023 HGB 8.3 (L) 06/28/2021 HEMATOCRIT 28.2 (L) 06/28/2021 HCT 35.8 (L) 09/27/2023 CBC/iron studies and STI testing ordered today by PCP, including Gonorrhea/Chlamydia. Review of Systems Constitutional: Negative for chills and fever. Genitourinary: Negative for dyspareunia, dysuria, frequency, genital sores, hematuria, menstrual problem, pelvic pain, urgency, vaginal bleeding, vaginal discharge and vaginal pain. No abnormal pap, no abnormal bleeding, no nipple discharge Objective BP 102/70 (BP Location: Left arm, Patient Position: Sitting, BP Cuff Size: Adult) Pulse 80 Temp98.8 ??F (37.1 ??C) (Oral) Resp 16 Ht 5' 6 (1.676 m) Wt 126 lb 8 oz (57.4 kg) LMP 05/03/2024 Comment: IUD BMI 20.42 kg/m?? Physical Exam Constitutional: Appearance: Normal appearance. Chest: Breasts: Right: Normal. No swelling, bleeding, inverted nipple, mass, nipple discharge, skin change or tenderness. Left: Mass and tenderness present. No swelling, bleeding, inverted nipple, nipple discharge or skinchange. Comments: Cystic tender area left breast UOQ, LOQ Genitourinary: General: Normal vulva. Labia: Right: No rash, tenderness, lesion or injury. Left: No rash, tenderness, lesion or injury. Vagina: Normal. No signs of injury and foreign body. No vaginal discharge, erythema, tenderness, bleeding or lesions. Cervix: No cervical motion tenderness, discharge, friability, lesion, erythema, cervical bleeding or eversion. Uterus: Normal. Not enlarged and not tender. Adnexa: Right adnexa normal and left adnexa normal. Right: No mass, tenderness or fullness. Left: No mass, tenderness or fullness. Comments: IUD strings noted. Body of IUD nonpalpable Lymphadenopathy: Upper Body: Right upper body: No supraclavicular or axillary adenopathy. Left upper body: No supraclavicular or axillary adenopathy. Neurological: Mental Status: She is alert. Psychiatric: Mood and Affect: Mood normal. Behavior: Behavior normal. Assessment/Plan Diagnoses and all orders for this visit: Cervical cancer screening Per [facility], HPV testing with pap today. Will contact with results and plan. Cotest 5 years if normal/HPV neg. Checking of intrauterine device Benign exam today. Remove/replace IUD by 8 y from insertion. May remove any time before then if desired. Let me know if monthly cramping becomes worse or more frequent. If menses become heavier, may replace at 5 years from insertion. Vaginal discharge Not noted on exam. Will send bacterial vaginosis swab. Gonorrhea/Chlamydia already ordered by PCP. documented in this encounter Plan of Treatment Upcoming Encounters Date Type Department Care Team ([facility] st Contact Info) Description 07/17/2024 8:00 AM EST Office Visit [facility]ULT D[facility] [address] [place] [address] Xavier Paredes DMD [address] [place] [address] 07/21/2024 11:00 AM EST Office Visit [facility] [address] [place] [address] Dany Carpenter Scheduled Orders Name Type Priority Associated Diagnoses Order Schedule Pap Smear Pathology and Cytology Routine Cervical cancer screening Ordered: 07/13/2024 BI US Breast Complete Left Imaging Urgent Mass overlapping multiple quadrants of left breast Expected: 07/13/2024, Expires: 09/10/2025 BI Mammogram Diagnostic Tomosynthesis Bilateral Imaging Urgent Mass overlapping multiple quadrants of left breast Expected: 07/13/2024, Expires: 09/10/2025 Bacterial Vaginosis Panel Microbiology Routine Vaginal discharge Ordered: 07/13/2024 documented as of this encounter Visit Diagnoses Diagnosis Cervical cancer screening- Primary Screening for malignant neoplasm of the cervix Checking of intrauterine device Mass overlapping multiple quadrants of left breast Vaginal discharge Leukorrhea, not specified as infective documented in this encounter Additional Health Concerns Assessment Noted Time PHQ-9 Depression Total Score: 0 07/13/19 25 11:28 AM EST documented as of this encounter Care Teams Slot Service Specialist Relationship Specialty Start Date End Date Mery Masters FNP [address] [place] [id number] PCP - General Family Medicine 07/03/21 documented as of this encounter
--- OUTSIDE RECORDS SUMMARY | 2024-07-14 10:47 | XMS_ITS | Encounter Summary ---
Author Organization [email or web address] Address [address] [facility] [address] [place] [address] Care Team Providers Care Engineering Designer Name Role Phone JoniMery mcginnis DOYLE Primary Care Provider [phone] Reason for Visit * Reason Onset Date Comments appt per provider 08/27/2023 Encounter Details Date Type Department Care Team (Late st Contact Info) Description 08/27/2023 Telephone [facility] [address] [place] [address] Xavier Paredes, DMD [address] [place] [address] appt per provider Social History Tobacco Use [...] with others, in a hotel, in a prison, living outside on the street, on a [...] extraction. Mery Masters provider for patient in [facility] sent referral in system and questions patient appt for tx to be rendered due to patient being in pain. I did explain that she is able to come as an emergency patientif the pain is that bad but that I would send request to dental for scheduling per provider and medi [facility] referral request DR documented in this encounter Plan of Treatment Upcoming Encounters Date Type Department Care Team (Late st Contact Info) Description 07/17/2024 8:00 AM EST Office Visit [facility] ADULT D[facility] [address] [place] [address] Xavier Paredes, CANDICE [address] [place] [address] 07/21/2024 11:00 AM EST Office Visit [facility] ADULT [facility] [address] [place] [address] Dany Carpenter documented as of this encounter Visit Diagnoses Not on filedocumented in this encounter Additional Health Concerns Assessment Noted Time PHQ-9 Depression Total Score: 3 08/14/19 24 9:59 AM EDT documented as of this encounter Care Teams Engineering Designer Relationship Specialty Start Date End Date Mery Masters FNP [address] [place] [address] PCP - General Family Medicine 07/03/21 documented as of this encounter
--- OUTSIDE RECORDS SUMMARY | 2024-07-14 10:47 | XMS_ITS | Encounter Summary ---
Author Organization [employer] Address [address] [place] [address] Care Team Providers Care Sewing Machine Operator Paper Bags Name Role Phone Mery Masters DOYLE Primary Care Provider [phone] Encounter Details Date Type Department Care Team [...] Description 07/17/2024 8:00 AM EST Office Visit [facility] [address] [place] [address] Xavier Paredes, CANDICE [address] [place] [address] 07/21/2024 11:00 AM EST Office Visit [facility] [address] [place] [address] Dany Carpenter documented as of this encounter Visit Diagnoses Not on filedocumented in this encounter Additional Health Concerns Assessment Noted Time PHQ-9 Depression Total Score: 0 07/13/19 25 11:28 AM EST documented as of this encounter Care Teams Sewing Machine Operator Paper Bags Relationship Specialty Start Date End Date Mery Masters FNP [address] [place] [address] PCP - General Family Medicine 07/03/21 documented as of this encounter
--- OUTSIDE RECORDS SUMMARY | 2024-07-14 10:47 | XMS_ITS | Clinical Summary ---
Author Organization [employer] Address [address] [place] [address] Care Team Providers Care Wrapper Caser Name Role Phone Mery Masters DOYLE Primary Care Provider [phone] Allergies No known active allergies Medications Levonorgestrel [...] caries associated with failed or defective dental taoism [place] teeth for 2 minutes, morning and night. [...] maintenance 07/25/2023 Overview (09/14/2023): Optometry: referral to [facility] eye care placed 08/27/23 Dental: Referral to [facility] Dental Jul 2023 Pap: 07/11/21: ASCUS, HPV negative (Due Jul 2024) Contraception: Liletta IUD inserted 08/16/21 (card user removal date: 08/17/2027) POTS (postural orthostatic tachycardia syndrome) 06/05/2023 Overview (07/13/2024): [place] [facility] [place] Previous tx: midodrine 10mg TID, metoprolol tartrate 12.5mg BID, and fludrocortisone 0.1mg daily Following with [facility] [place] - Dr. Vasquez & [facility] Neurology Plasma metanephrine levels: wnl Tilt table test Jun 2023 ([facility]): orthostatic tachycardia with compensatory hypertension Assessment & Plan (07/13/2024 11:07 AM EST): Currently well controlled off medication Encouraged to continue following with specialists and monitoring for symptoms Assessment & Plan (10/26/2023 11:46 AM EDT): Diagnosed [place] [facility] [place] 2023 Continues midodrine 10mg TID, metoprolol tartrate 12.5mg BID, and fludrocortisone 0.1mg daily Following with [facility] [place] - Dr. Vasquez & [facility] Neurology Encouraged hydration and liberal salt intake, change positions slowly Plasma metanephrine levels: wnl Tilt table test Jun 2023 ([facility]): orthostatic tachycardia with compensatory hypertension Reviewed follow up precautions Much improved compared to prior, continue with current management Assessment & Plan (09/14/2023 7:34 PM EDT): Diagnosed [place] [facility] [place] 2023 Continues midodrine 10mg TID, metoprolol tartrate, and fludrocortisone 0.1mg daily Following with [facility] [place] Paul Vasquez Encouraged hydration and liberal salt intake, change positions slowly Plasma metanephrine levels: wnl Tilt table test Jun 2023 ([facility]): orthostatic tachycardia with compensatory hypertension Reviewed ED/urgent care precautions Plan to follow up with Cardiology and Neurology Assessment & Plan (08/14/2023 8:09 PM EDT): Diagnosed [place] [facility] [place] 2023 Started on midodrine, metoprolol tartrate, and fludrocortisone Following with [facility] Paul Vasquez Encouraged hydration and liberal salt intake, change positions slowly Plasma metanephrine levels: wnl Tilt table test Jun 2023 ([facility]): orthostatic tachycardia with compensatory hypertension Reviewed ED/urgent care precautions Plan to follow up with Cardiology and Neurology Assessment & Plan (07/28/2023 10:43 AM EST): Diagnosed during [facility] [place] May 2023 Started on midodrine, metoprolol tartrate, and fludrocortisone Following with [facility] [place] - Dr. Vasquez Encouraged hydration [...] request refills if needed -follow up with [facility] [place] [place] -apt 06/17/2023 ( will f w cards Plasma metanephrine levels sent at hospital as well plan to f up Tilt test and Holter result then) -alarm signs and symptoms discussed in length Nonintractable generalized i diopathic epilepsy without status epilepticus 08/15/2021 Overview (07/28/2023): Briefly, 25 [facility] h/o possible focal epilepsy and headaches on Keppra ONSET: 12yo, in [place], starting being [...] Plan (07/13/2024 1:07 PM EST): Followed by [facility] Neurology, encouraged to schedule follow up appt EEG wnl October 2022 through [facility] Neuro Previous rx: Topiramate 200mg BID, keppra 1000mg BID Currently off tx since March 2024 (self DC) and has had no seizures or symptoms since Assessment & Plan (07/28/2023 10:45 AM EST): Followed by [facility] Neurology, encouraged to schedule follow up [...] (08/14/2023 8:11 PM EDT): YIN/migraines: treated by [facility] Neurology with topiramate 25mg BID (although increased to 200mg BID during hospitalization, pt to confirm which dose she is currently taking). Continues with magnesium as well for prophylaxis Refill ibuprofen PRN, encouraged to use sparingly PRN Assessment & Plan (07/25/2023 6:40 PM EST): >>ASSESSMENT AND PLAN FOR OTHER HEADACHE SYNDROME WRITTEN ON 07/25/2023 6:37 PM BY DOYLE HURST YIN/migraines: treated by [facility] Neurology with topiramate 25mg BID. Reports [...] Description 07/13/2024 1:45 PM EST Procedure Visit [facility] [address] [place] [phone] Kell Pritchett CNM Cervical cancer screening (Primary Dx); Checking of intrauterine device; Mass overlapping multiple quadrants of left breast; Vaginal discharge 07/13/2024 10:15 AM EST Office Visit [facility] [address] [place] [address] Mery Masters FNP POTS (postural orthostatic tachycardia syndrome) (Primary Dx); Healthcare maintenance; Nonintractable generalized idiopathic epilepsy without status epilepticus (CMS/HCC); Iron deficiency anemia, unspecified iron deficiency anemia type; Xerosis of skin; Immunization due 07/13/2024 Travel 07/08/2024 Telephone [facility] [address] [place] [address] Rolly Forrester MA Chart Prep 07/06/2024 Orders Only [facility] [address] [place] [address] Xavier Paredes, CANDICE 06/25/2024 Telephone [facility] [address] [place] [phone] Kenny Vides, CANDICE 05/22/2024 Travel from Last 3 Months Immunizations Name Administration Dates Next Due Hep B, adult 07/13/2024,10/23/2023 Tdap 08/14/2023 Family History Medical History Relation Name Comments Cancer Paternal Grandmother Relation Name Status Comments Paternal Grandmother Social History Tobacco Use Types Packs/Day Years [...] 07/17/2024 8:00 AM EST Office Visit [facility] [address] [place] [address] Xavier Paredes DMD [address] [place] [address] 07/21/2024 11:00 AM EST Office Visit [facility] [address] [place] [address] Dany Carpenter Health Maintenance Due Date Last Done Comments Dental Oral Exam 04/13/2024 10/11/2023 Dental Prophylaxis [...] (Patient Refused) Depression Screening 07/13/2025 07/13/2024, 07/13/2024 Family Planning (PISQ) 07/13/2025 07/13/2024 SDOH Screening 07/13/2025 07/13/2024 Tobacco Screening 07/13/2025 07/13/2024 Dental X-Ray: Full Mouth 10/11/2026 10/11/2023 DTaP/Tdap/Td Vaccines (2 - T d or Tdap) 08/13/2033 08/14/2023 Zoster Vaccines (1 of 2) 2044 RSV Patients and Patients Aged 60 years or older (1 - 1-dose 75+ series) 2069 Hepatitis C Screening Completed 06/28/2021 HIV Screening Completed 07/13/2024, 06/28/2021 HIB Vaccines Aged Out No longer [...] Procedure Name Priority Date/Time Associated Diagnosis Comments HIV 1/2 ANTIGEN/ANTIBODY, FOURTH GENERATION W/RFL Routine 07/13/2024 1:15 PM EST Healthcare maintenance VITAMIN D,25-OH,TOTAL,IA Routine 07/13/2024 1:15 PM EST Healthcare maintenance IRON AND TOTAL IRON BINDING CAPACITY Routine 07/13/2024 1:15 PM EST Healthcare maintenance FERRITIN Routine 07/13/2024 1:15 PM EST Healthcare maintenance CBC WITH AUTO DIFFERENTIAL Routine 07/13/2024 1:15 PM EST Healthcare maintenance COMPREHENSIVE METABOLIC PANEL Routine 07/13/2024 1:15 PM EST Healthcare maintenance TSH W/REFLEX TO FT4 Routine 07/13/2024 1 :15 PM EST Healthcare maintenance HEMOGLOBIN A1C Routine 07/13/2024 1:15 PM EST Healthcare maintenance LIPID PANEL, STANDARD Routine 07/13/2024 1:15 PM EST Healthcare maintenance CHLAMYDIA/N. GONORRHOEAE RNA, TMA, UROGENITAL Routine 07/13/2024 1:15 PM EST Healthcare maintenance PROPHYLAXIS - ADULT Routine 10/11/2023 1 0:15 AM EDT Dental calculus Gingival bleeding DIAGNOSTIC - DIAGNOSTIC IMAGING - INTRAORAL - COMPREHENSIVE SERIES OF RADIOGRAPHIC IMAGES Routine 10/11/2023 9:00 AM EDT Secondary dental caries associated with failed or defective dental taoism Gingivitis COMPREHENSIVE ORAL EVALUATION - NEW OR ESTABLISHED PATIENT Routine 10/11/2023 9:00 AM EDT Secondary dental caries associated with failed or defective dental taoism Gingivitis THINPREP IMAGING SYSTEM PAP Routine 07/11/2021 3:17 PM EST ZZZ HISTORICAL HEPATITIS C AB W/REFL TO HCV RNA, QN, PCR Routine 06/28/2021 12:00 AM EST from Last 3 Months or Most Recently Relevant to Health Maintenance Results * (ABNORMAL) Vitamin D, 25-Hydroxy, Total, Immunoassay (07/13/2024 1:15 PM EST) Vitamin D 25-OH Total 17.9(L) >30 ng/mL [facility] Comment:Health Based Referen ce Values*< 20 ng/mL [id number] ng/mL Insufficient> 30 ng/mL Sufficient*Preeti ÁLVAREZ. N [...] EST 07/13/2024 4:02 PM EST Mery Masters [facility] BLOOD ORDERABLES Final Res ult Performing Organization Address [facility]/ZIP Co de Phone Number [facility] [address] [place] [phone] * TSH with Reflex to Free T4 (07/13/2024 1:15 PM EST) Pathologist [facility] TSH reflex Free T4 0.92 0.32 - 4.0 uIU/mL [facility] Blood 07/13/2024 1:15 PM EST 07/13/2024 4:02 PM EST Mery Masters [facility] BLOOD ORDERABLES Final Res ult Performing Organization Address City/[facility]/ZIP Co de Phone Number [facility] [address] [place] [phone] * (ABNORMAL) CBC auto differential (07/13/2024 1:15 PM EST) White Blood Count 6.0 4.8 - 10.8 X10*3/uL [facility] Red Blood Count 4.17(L) 4.20 - 5.50 X10*6/uL [facility] Hemoglobin 11.4(L) 12.0 - 16.0 g/dl [facility] Hematocrit 32.7(L) 37.0 - 47.0 % [facility] Mean Corpuscular Volume 78.4(L) 80.0 - 98.0 fL [facility] Mean Corpuscular Hemoglobin 27.3 27.0 - 33.0 pg [facility] Mean Corpuscular HGB Conc 34.9 31.0 - 35.0 g/dl [facility] Red Cell Distribution Width 13.2 11.0 - 16.0 % [facility] Platelet Count 229 160 - 400 X10*3/uL [facility] Mean Platelet Volume 12.1 9.4 - 12.3 fL [facility] Neutrophils Percent Auto 55.4 45 - 73 % [facility] Imm Gran Pct Auto 0.2 0.0 - 0.4 % [facility] Lymphocytes Percent Auto 35.6 20 - 40 % [facility] Monocytes Percent Auto 7.0 2 - 11 % [facility] Eosinophils Percent Auto 1.5 0 - 4 % [facility] Basophils Percent Auto 0.3 0 - 2 % [facility] NRBC Pct Auto 0.0 0.0 - 0.2 /100WBC [facility] Neutrophils Absolute Auto 3.3 2.0 - 8.3 x10*3/uL [facility] Imm Gran Abs Auto 0.01 0.00 - 0.03 X10*3/uL [facility] Lymphocytes Absolute Auto 2.1 1.2 - 4.9 X10*3/uL [facility] Monocytes Absolute Auto 0.4 0.1 - 1.2 X10*3/uL [facility] Eosinophils Absolute Auto 0.1 0.0 - 0.4 X10*3/uL [facility] Basophils Absolute Auto 0.0 0.0 - 0.2 X10*3/uL [facility] NRBC Abs Auto 0.000 0.0 - 0.012 X10*3/uL [facility] Blood Venous blood specimen / Unknown 07/13/2024 1:15 PM EST 07/13/2024 4:02 PM EST us Mery Masters [facility] LAB BLOOD ORDERABLES Final Res ult [facility] [address] [place] [phone] * (ABNORMAL) Iron And Total Iron Binding Capacity (07/13/2024 1:15 PM EST) Iron 143 30 - 160 mcg/dL [facility] Total Iron Binding Capacity 243 228 - 428 mcg/dL [facility] Percent Iron Saturation 59(H) 15 - 50 % [facility] Unsaturated Iron Binding 100 ug/dL [facility] Blood Venous blood specimen / Unknown 07/13/2024 1:15 PM EST 07/13/2024 4:02 PM EST Mery Masters HEALTHCARE PROF LAB BLOOD ORDERABLES Final Res ult [facility] [address] [place] [phone] * Chlamydia/N. Gonorrhoeae RNA, TMA, Urogenitial (07/13/2024 1:15 PM EST) CT PCR NOT DETECTED Not Detect. [facility] Comment:A not detected test result does [...] psychologicalconsequences. NG PCR NOT DETECTED Not Detect. [facility] Comment:A not detected test result does [...] PM EST 07/13/2024 4:01 PM EST Narrative [facility] - 07/14/2024 5:34 AM EST Urine Mery Masters [facility] MICROBIOLOGY - GENERAL ORD ERABLES Final Result Performing Organization Address [facility]/ZIP Co de Phone Number [facility] [address] [place] [phone] * HIV-1/2 Antigen and Antibodies, Fourth Generation, with Reflexes (07/13/2024 1:15 PM EST) Pathologist [facility] HIV AB/AG Nonreactive Nonreactive [facility] Comment:HIV-1 p24 Ag and/or HIV-1/HIV-2 Ab not detected.A test result that is nonreactive does not exclude thepossibility of exposure to or infection with HIV-1 and/orHIV-2. Nonreactive results in this assay for individualswith prior exposure to HIV-1 and/or HIV-2 may be due toantigen and antibody levels that are below the limit ofdetection of this assay.The Rosum HIV Ag/Ab Combo assay result andsupplemental assay results should be interpreted inconjunction with the patient's clinical presentation,history and other laboratory results. If the results areinconsistent with clinical evidence, additional testing issuggested to confirm the result. Blood Venous blood specimen / Unknown 07/13/2024 1:15 PM EST 07/13/2024 4:02 PM EST Mery Masters [facility] BLOOD ORDERABLES Final Res ult Performing Organization Address [facility]/ZIP Co de Phone Number [facility] [address] [place] [phone] * Hemoglobin A1c (07/13/2024 1:15 PM EST) Hemoglobin A1c 4.7 <6.0 % [facility] Comment:Hemoglobin A1C Refer ence Range Adults: 4.8 - 6.0 % Non diabetic: < 6.0 % Goal: < 7.0 %Additional Action Suggested: > 8.0 %Note: Hemoglobin A1c results are invalid for patients with abnormal amounts of HbF. Blood transfusions may impact the HbA1c concentration in the patient sample. Estimated Average Glucose 88 mg/dL [facility] Comment:eAG = Estimated ave rage glucose which is %A1C expressed asaverage glucose, using the formula of the G5A-ZtntysrAxadxoa Glucose study (ADAG), Diabetes Care, Vol.31,#8,2007 Blood Venous blood specimen / Unknown 07/13/2024 1:15 PM EST 07/13/2024 4:02 PM EST Mery Masters [facility] BLOOD ORDERABLES Final Res ult Performing Organization Address [facility]/ZIP Co de Phone Number [facility] [address] [place] [phone] * Ferritin (07/13/2024 1:15 PM EST) Pathologist [facility] Ferritin 80 10 - 122 ng/mL [facility] Blood Venous blood specimen / Unknown 07/13/2024 1:15 PM EST 07/13/2024 4:[address] [facility] BLOOD ORDERABLES Final Res ult Performing Organization Address [facility] Co de Phone Number [facility] [address] [place] [phone] * Lipid Panel, Standard (07/13/2024 1:15 PM EST) Triglycerides 61 <150 mg/dL [facility] Comment:Desirable Triglyceri de: less than 150 mg/dLBorderline High Triglyceride 150-199 mg/dLHigh Triglyceride: 200-499 mg/dLVery High Triglyceride: greater than or equal to 5OO mg/dL Cholesterol 156 <200 mg/dL [facility] Comment:Desirable Cholestero l: less than 200 mg/dLBorderline High Cholesterol: 200-239 mg/dLHigh Cholesterol: greater than 239 mg/dL LDL Cholesterol Calculated 77 <100 mg/dL [facility] Comment:Desirable LDL: less than 100 mg/dLNear Optimal/Above Optimal LDL: 110- 129 mg/dLBorderline High LDL: 130-159 mg/dLHigh LDL: 160-189 mg/dLVery High LDL: greater than or equal to 190 mg/dL HDL Cholesterol 67 >40 mg/dL [facility] Comment:Desirable HDL: great er than 40 mg/dL Note: This HDL assay may give artificially low results in patients with liver disease. Blood Venous blood specimen / Unknown 07/13/2024 1:15 PM EST 07/13/2024 4:02 PM EST us Mery Masters [facility]ALTH[facility]ARE PROF LAB BLOOD ORDERABLES Final Res ult [facility] [address] [place] [phone] * (ABNORMAL) Comprehensive Metabolic Panel (07/13/2024 1:15 PM EST) Sodium 140 135 - 145 mmol/L [facility] Potassium 3.9 3.3 - 5.1 mmol/L [facility] Chloride 109(H) 96 - 108 mmol/L [facility] Carbon Dioxide 25 22 - 29 mmol/L [facility] Anion Gap 10(L) 12 - 20 [facility] Urea Nitrogen (BUN) 10 9 - 16 mg/dL [facility] Creatinine, Serum 0.61 0.5 - 1.4 mg/dL [facility] Estimated Glomerular Filt Rate >60 [facility] Comment:Chronic Kidney Disea se: Estimated GFR < 60 mL/min/1.18s6Kxgval Kidney Disease: Estimated GFR < 15 mL/min/1.73m2 Glucose 87 60 - 115 mg/dL [facility] Calcium 9.0 8.4 - 10.2 mg/dL [facility] Bilirubin, Total 1.4(H) 0.0 - 1.0 mg/dL [facility] Aspartate Amino Transferase 21 5 - 31 U/L [facility] Alanine Aminotransferase 18 0 - 31 U/L [facility] Total Protein 7.6 6.5 - 8.0 g/dL [facility] Albumin Level 4.3 3.5 - 5.0 g/dL [facility] Alkaline Phosphatase 38(L) 39 - 117 U/L [facility] Blood Venous blood specimen / Unknown 07/13/2024 1:15 PM EST 07/13/2024 4:02 PM EST us Mery Masters HEALTHCARE PROF LAB BLOOD ORDERABLES Final Res ult [facility] [address] [place] [phone] * (ABNORMAL) THINPREP TIS PAP (07/11/2021 3:17 PM EST) Clinical Information: None given [facility] COMMENT SEE COMMENT FOUNDAT[facility] ON [...] has been evaluated with computer assisted technology. [facility] Bobbin Hauler : SEE COMMENT [facility] Comment: WAC, CT(ASCP) CT screening location: [address] ??[phone] General Categorization: EPITHELIAL CELL ABNORMALITY(A) [facility] Interpretation/R esult: Atypical Squamous Cells of Undetermined Significance (ASC-US)(A) [facility] LMP: NONE GIVEN [facility] LAB SYSTEM PATHOLOGIST: [facility] Comment: Eliseo Pagan M.D., Board Certified in Anatomic and Clinical Pathology (electronic signature) Consulting Pathologist [facility] [address] [place] [phone] Prev. BX: NONE GIVEN [facility] LAB [facility] Prev. PAP: NONE GIVEN [facility]OUNDAT[facility] ON LAB SYSTEM SOURCE: None given [facility] Statement Of Adequacy: SEE COMMENT [facility] Comment: Satisfactory for evaluation. Endocervical/transformation zone component present. 07/11/2021 3:17 PM EST Kell Pritchett CN LAB PATHOLOGY ORDERABLES Final Result Performing Organization Address [facility] de Phone Number [facility] [address] * HEPATITIS C AB W/REFL TO HCV RNA, QN, PCR (06/28/2021 12:00 AM EST) HEPATITIS C ANTIBODY NON-REACT BEBE NON-REACT BEBE [facility] INDEX 0.01 <1.00 [facility] Comment: ?? HCV antibody was non-reactive. There is no laboratory ?? evidence of HCV infection. ?? In most cases, no further action is required. However, if recent HCV exposure is suspected, a test for HCV RNA (test code 68847) is suggested. ?? For additional information please refer to http://education.[employer]/faq/MUY37g0 (This link is being provided for informational/ educational purposes only.) ?? 06/28/2021 Mery Masters HEALTHCARE PROF HISTORICAL/NON ORDERABLE LABS Final Result Performing Organization Address [facility] Co de Phone Number [facility] [address] from Last 3 Months or Most Recently Relevant to Health Maintenance Insurance [place] DENTAL-[facility] MEDICAID LIMITED ADULT DENTAL - HSN FULL (MEDICAID) Care Teams Wrapper Caser Relationship Specialty Start Date End Date Mery Masters FNP [address] [place] [phone] PCP - General Family Medicine 07/03/21
--- OUTSIDE RECORDS SUMMARY | 2024-07-14 10:47 | XMS_ITS | Encounter Summary ---
Author Organization [employer] Address [address] [facility] 7 [place] [address] Care Team Providers Care Clinical Systems Educator Name Role Phone Mery Masters Primary Care Provider [phone] Reason for Visit * Reason Onset Date Comments Nurse Triage 05/13/2023 Encounter Details Date Type Department Care Team (Late st Contact Info) Description 05/13/2023 Telephone [facility] MEDICINE [address] [place] [address] Mery Masters FNP [address] [place] [address] Nurse Triage Social History Tobacco Use Types [...] with others, in a hotel, in a mcfp, living outside on the street, on a [...] 1:58 PM EST Discharge records requested from [facility] confirmation received. * Telephone Encounter - Tammie Cevallos RN - 05/13/2023 1:42 PM EST Admitted to [facility] 05/08--05/12 Medical Records number to obtain notes [phone] F Future Appointments Date Time Provider Department Center 05/20/2023 9:30 AM DOYLE Rodrigues [facility] Sent to care coordinators to obtain discharge [...] informs that recently admitted to hospital at [facility] 05/08--05/12 (pt currently visiting in [place]) Per pt medications was changed Keppra 1500mg daily topiramate 200mg daily. Per pt is due to return to [place] this weekend. Pt provided Medical Records number to obtain notes [phone]. Pt wants follow up [facility] PCP upon return. Agrees to visit in [facility], booked for HDF. Reviewed home care [...] Department Center 05/20/2023 9:30 AM DOYLE Rodrigues [facility] Video visit offer not recorded Positive Triage [...] caller accepted this outcome Please contact at [phone] Bangladeshi documented in this encounter Plan of Treatment Upcoming Encounters Date Type Department Care Team (Late st Contact Info) Description 07/17/2024 8:00 AM EST Office Visit [facility] ADULT DENTAL [address] [place] [address] Xavier Paredes, CANDICE [address] [place] [address] 07/21/2024 11:00 AM EST Office Visit [facility] ADULT DENTAL [address] [place] [address] Dany Carpenter documented as of this encounter Visit Diagnoses Not on filedocumented in this encounter Care Teams Clinical Systems Educator Relationship Specialty Start Date End Date Mery Masters FNP [address] [place] [id number] PCP - General Family Medicine 07/03/21 documented as of this encounter
--- OUTSIDE RECORDS SUMMARY | 2024-07-14 10:47 | XMS_ITS | Encounter Summary ---
Author Organization [employer] Address [address] [facility] 7 [place] [address] Care Team Providers Care Game And Fish Protector Name Role Phone Mery Masters Primary Care Provider [phone] Reason for Visit * Reason Onset Date Comments Nurse Triage 06/20/2023 Encounter Details Date Type Department Care Team (Late st Contact Info) Description 06/20/2023 Telephone [facility] MEDICINE [address] [place] [address] Mery Masters FNP [address] [place], [place] [phone] Nurse Triage Social History Tobacco Use Types Packs/Day Years Used Date Smoking Tobacco: Never Passive Smoke Exposure: Never Smokeless Tobacco: Never Housing Stability Answer Date Recorded What is your housing situation today? I do not have housing (Staying with others, in a hotel, in a correction, living outside on the street, on a [...] POTS and dizziness. (Her address is in [place], so hopefully we can schedule her at [facility]) * Telephone Encounter - Ivy Lynn RN - 06/20/2023 12:22 PM EST called pt to triage, spoke to pt. through ashley flight communications officer. pt states left ear ache and decreased [...] 07/17/2024 8:00 AM EST Office Visit [facility] ADULT DENTAL [address] [place] [address] Xavier Paredes, CANDICE [address] [place] [address] 07/21/2024 11:00 AM EST Office Visit [facility] ADULT DENTAL [address] [place] [address] Dany Carpenter documented as of this encounter Visit Diagnoses Not on filedocumented in this encounter Care Teams Game And Fish Protector Relationship Specialty Start Date End Date Mery Masters FNP [address] [place] [id number] PCP - General Family Medicine 07/03/21 documented as of this encounter
--- OUTSIDE RECORDS SUMMARY | 2024-07-14 10:47 | XMS_ITS | Encounter Summary ---
Author Organization [employer] Address [address] [facility] 7 [place] [address] Care Team Providers Care Civil Division Commander Deputy Sheriff Name Role Phone Mery Masters Primary Care Provider [phone] Reason for Visit * Reason Onset Date Comments Appointment Request 10/03/2023 Encounter Details Date Type Department Care Team ([facility] st Contact Info) Description 10/03/2023 Telephone [facility] MEDICINE [address] [place] [address] Mery Masters FNP [address] [place], [place] [phone] Appointment Request Social History Tobacco Use Types [...] with others, in a hotel, in a fpc, living outside on the street, on a [...] agrees to f/u appt on 10/23/23 in [facility]. * Telephone Encounter - DOYLE Rodrigues - [...] 07/17/2024 8:00 AM EST Office Visit [facility] ADULT DENTAL [address] [place] [address] Xavier Paredes, DMD [address] [place] [address] 07/21/2024 11:00 AM EST Office Visit [facility] ADULT DENTAL [address] [place] [address] Dany Carpenter documented as of this encounter Visit Diagnoses Not on filedocumented in this encounter Additional Health Concerns Assessment Noted Time PHQ-9 Depression Total Score: 3 08/14/19 24 9:59 AM EDT documented as of this encounter Care Teams Civil Division Commander Deputy Sheriff Relationship Specialty Start Date End Date Mery Masters FNP [address] [place] [id number] PCP - General Family Medicine 07/03/21 documented as of this encounter
--- OUTSIDE RECORDS SUMMARY | 2024-07-14 10:47 | XMS_ITS | Encounter Summary ---
Author Organization [employer] Address [address] [facility] [address] [place] [address] Care Team Providers Care Janitorial Account Manager Name Role Phone JoniMery mcginnis DOYLE Primary Care Provider [phone] Encounter Details Date Type Department Care Team ([facility] st Contact Info) Description 07/06/2024 Orders Only [facility] ADULT DENTAL [address] [place], [place] [phone] Xavier Paredes, DMD [address] [place] [address] Social History Tobacco Use Types Packs/Day Years [...] with others, in a hotel, in a longterm, living outside on the street, on a [...] Description 07/17/2024 8:00 AM EST Office Visit [facility] ADULT DENTAL [address] [place] [address] Xavier Paredes, DMD [address] [place] [address] 07/21/2024 11:00 AM EST Office Visit [facility] ADULT DENTAL [address] [place] [address] Dany Carpenter documented as of this encounter Visit Diagnoses Not on filedocumented in this encounter Additional Health Concerns Assessment Noted Time PHQ-9 Depression Total Score: 3 08/14/19 24 9:59 AM EDT documented as of this encounter Care Teams Janitorial Account Manager Relationship Specialty Start Date End Date Mery Masters FNP [address] [place] [address] PCP - General Family Medicine 07/03/21 documented as of this encounter
== END 2024-07-14 10:00 | disposition home or self-care (01) ==
PROVIDERS: Visit Provider Nurse Practitioner Family
DX: G90.A Postural orthostatic tachycardia syndrome [POTS] (principal); R55 Syncope and collapse
CPT/HCPCS: 99213

== ENCOUNTER → 2024-07-14 09:39 | Outpatient (BNVA) | payer SELFPAY | PROVIDERS: Visit Provider Nurse Practitioner Family | DX: G90.A Postural orthostatic tachycardia syndrome [POTS] (principal); R55 Syncope and collapse | CPT/HCPCS: 99212 ==

== ENCOUNTER 2024-07-21 15:41 | Outpatient (REF) | payer MEDICAID, SELFPAY ==
--- OUTSIDE RECORDS SUMMARY | 2024-07-21 16:30 | XMS_ITS | Clinical Summary ---
Author Organization [employer] Address [address] [facility] [address] [place] [address] Care Team Providers Care Hand Striper Name Role Phone Mery Masters DOYLE Primary Care Provider [phone] Allergies No known active allergies Medications Levonorgestrel 20.1 MCG/DAY intrauterine device 1 Device by Intrauterine route. Active Blood Pressure Monitor kit Check blood pressure daily and when symptomatic 1 kit Active Additional Information Patient not taking.Reported on 07/13/2024 midodrine (Proamatine) 10 MG tablet TAKE 1 TABLET BY MOUTH THREE TIMES DAILY. DO NOT TAKE 3rd DOSE AFTER DE 6PM OR LESS THAN 4 HOURS BEFORE BEDTIME Active Blood Pressure Monitoring (Omron 3 Series BP Monitor) device Check blood pressure on arm as directed Active Sod Fluoride-Potass ium Nitrate 1.1-5 % pasteIndication s:Secondary dental caries associated with failed or defective dental hinduism [place] teeth for 2 minutes, morning and night. Spit, do not rinse. Do not eat or drink anything for 30 minutes following brushing. 112 g 3 Active Additional Information Patient not taking.Reported on 07/13/2024 levETIRAcetam (Keppra) 1000 MG tablet Take 1 tablet (1,000 mg) by mouth at noon and 1 tablet (1,000 mg) in the evening. 180 tablet Active Additional Information Patient not taking.Reported on 07/13/2024 topiramate (Topamax) 200 MG tablet Take 1 tablet (200 mg) by mouth 2 times daily. 180 tablet Active Additional Information Patient not taking.Reported on 07/13/2024 metoprolol tartrate (Lopressor) 25 MG tablet Take 0.5 tablets (12.5 mg) by mouth 2 times daily. 180 tablet Active Additional Information Patient not taking.Reported on 07/13/2024 fludrocortisone (Florinef) 0.1 MG tablet Take 1 tablet (0.1 mg) by mouth Once per day. 90 tablet Active Additional Information Patient not taking.Reported on 07/13/2024 ferrous gluconate (Fergon) 324 (38 Fe) MG tablet Take 1 tablet (324 mg) by mouth 3 (three) times a week. 36 tablet 2024 Active Additional Information Patient not taking.Reported on 07/13/2024 hydrocortisone 2.5 % creamIndication s:Xerosis of skin Apply pea sized amount to affected skin bid for 1 week. (Location: external ears) 15 g Active Additional Information Patient not taking.Reported on 07/13/2024 magnesium oxide (Mag-Ox) 400 MG tablet Take 1 tablet (400 mg) by mouth at bedtime. 90 tablet 3 025 Active Ascorbic Acid (vitamin C) 1000 MG tablet Take 1 tablet (1,000 mg) by mouth Once per day. 90 tablet 1 Active Cholecalciferol (Vitamin D3) 25 MCG (1000 UT) chewable tablet Chew 1 tablet Once per day. 90 tablet 3 025 Active magnesium oxide (Mag-Ox) 400 mg tablet Take 1 tablet (400 mg) by mouth in the morning. 90 tablet 024 2024 Discontinued(D uplicate order (will not trigger notification to Pharmacy)) magnesium oxide (Mag-Ox) 400 MG tablet Take 1 tablet (400 mg) by mouth at bedtime. 90 tablet 3 024 2024 Discontinued(R eorder (will not trigger notification to Pharmacy)) Ascorbic Acid (vitamin C) 1000 MG tablet Take 1 tablet (1,000 mg) by mouth Once per day. 90 tablet 1 024 2024 Discontinued(R eorder (will not trigger notification to Pharmacy)) Active Problems Problem Noted Date Diagnosed Date Dental calculus 10/11/2023 Gingival bleeding 10/11/2023 Healthcare maintenance 07/25/2023 Overview (09/14/2023): Optometry: referral to [facility] eye care placed 08/27/23 Dental: Referral to [facility] Dental Jul 2023 Pap: 07/11/21: ASCUS, HPV negative (Due Jul 2024) Contraception: Liletta IUD inserted 08/16/21 (card user removal date: 08/17/2027) POTS (postural orthostatic tachycardia syndrome) 06/05/2023 Overview (07/13/2024): Diagn[place] during [facility] [place]23 Previous tx: midodrine 10mg TID, metoprolol tartrate 12.5mg BID, and fludrocortisone 0.1mg daily Following with [facility] Cards - Dr. Vasquez & [facility] Plasma metanephrine levels: wnl Tilt table test Jun 2023 ([facility]): orthostatic tachycardia with compensatory hypertension Assessment & Plan (07/13/2024 11:07 AM EST): Currently well controlled off medication Encouraged to continue following with specialists and monitoring for symptoms Assessment & Plan (10/26/2023 11:46 AM EDT): Diagnosed during [facility] [place] May 2023 Continues midodrine 10mg TID, metoprolol tartrate 12.5mg BID, and fludrocortisone 0.1mg daily Following with [facility] Cards - Dr. Vasquez & [facility] Encouraged hydration and liberal salt intake, change positions slowly Plasma metanephrine levels: wnl Tilt table test Jun 2023 ([facility]): orthostatic tachycardia with compensatory hypertension Reviewed follow up precautions Much improved compared to prior, continue with current management Assessment & Plan (09/14/2023 7:34 PM EDT): Diagnosed during [facility] [place] May 2023 Continues midodrine 10mg TID, metoprolol tartrate, and fludrocortisone 0.1mg daily Following with [facility] Cards Paul Vasquez Encouraged hydration and liberal salt intake, change positions slowly Plasma metanephrine levels: wnl Tilt table test Jun 2023 ([facility]): orthostatic tachycardia with compensatory hypertension Reviewed ED/urgent care precautions Plan to follow up with Cardiology and Neurology Assessment & Plan (08/14/2023 8:09 PM EDT): Diagnosed during [facility] Admission May 2023 Started on midodrine, metoprolol tartrate, and fludrocortisone Following with [facility] Cards - Dr. Vasquez Encouraged hydration and liberal salt intake, change positions slowly Plasma metanephrine levels: wnl Tilt table test Jun 2023 ([facility]): orthostatic tachycardia with compensatory hypertension Reviewed ED/urgent care precautions Plan to follow up with Cardiology and Neurology Assessment & Plan (07/28/2023 10:43 AM EST): Diagnosed during [facility] Admission May 2023 Started on midodrine, metoprolol tartrate, and fludrocortisone Following with [facility] - Dr. Vasquez Encouraged hydration and liberal salt intake, change positions slowly Plasma metanephrine levels: wnl Tilt test through Cards: request records, possible not POTS (?) Reviewed ED/urgent care precautions PCP to communicate with [facility] office regarding results and POC Pt to [...] request refills if needed -follow up with [facility] Cardiology -apt 06/17/2023 ( will f w cards Plasma metanephrine levels sent at hospital as well plan to f up Tilt test and Holter result then) -alarm signs and symptoms discussed in length Nonintractable generalized i diopathic epilepsy without status epilepticus 08/15/2021 Overview (07/28/2023): Briefly, 25 [facility] h/o possible focal epilepsy and headaches on Keppra ONSET: 12yo, in [place], starting being short of breath and [...] [place] med from [place] and requesting from . Instead of taking twice daily, she was [...] Plan (07/13/2024 1:07 PM EST): Followed by [facility] Neurology, encouraged to schedule follow up appt EEG wnl October 2022 through [facility] Neuro Previous rx: Topiramate 200mg BID, keppra 1000mg BID Currently off tx since March 2024 (self DC) and has had no seizures or symptoms since Assessment & Plan (07/28/2023 10:45 AM EST): Followed by [facility] Neurology, encouraged to schedule follow up [...] (08/14/2023 8:11 PM EDT): YIN/migraines: treated by [facility] Neurology with topiramate 25mg BID (although increased to 200mg BID during hospitalization, pt to confirm which dose she is currently taking). Continues with magnesium as well for prophylaxis Refill ibuprofen PRN, encouraged to use sparingly PRN Assessment & Plan (07/25/2023 6:40 PM EST): >>ASSESSMENT AND PLAN FOR OTHER HEADACHE SYNDROME WRITTEN ON 07/25/2023 6:37 PM BY DOYLE HURST YIN/migraines: treated by [facility] Neurology with topiramate 25mg BID. Reports [...] Encounters Date Type Department Care Team Description 07/21/2024 11:00 AM EST Office Visit [facility] [address] [place] [address] Dany Carpenter Dental calculus (Primary Dx) 07/21/2024 Orders Only [facility] [address] [place] [address] Mery Masters FNP Elevated bilirubin (Primary Dx) 07/21/2024 Telephone [facility] [address], [place] [phone] Mery Masters FNP Results 07/21/2024 Telephone [facility] [address], [place] [phone] Mery Masters FNP Results 07/15/2024 Refill [facility] [address] [place] [address] Mery Masters FNP 07/13/2024 1:45 PM EST Procedure Visit [facility] [address] [place] [address] Kell Pritchett CNM Cervical cancer screening (Primary Dx); Checking of intrauterine device; Mass overlapping multiple quadrants of left breast; Vaginal discharge 07/13/2024 10:15 AM EST Office Visit [facility] [address] [place] [address] Mery Masters FNP POTS (postural orthostatic tachycardia syndrome) (Primary Dx); Healthcare maintenance; Nonintractable generalized idiopathic epilepsy without status epilepticus (CMS/HCC); Iron deficiency anemia, unspecified iron deficiency anemia type; Xerosis of skin; Immunization due 07/13/2024 Travel 07/08/2024 Telephone [facility] [address] [place] [address] Rolly Forrester MA Chart Prep 07/06/2024 Orders Only [facility] [address] [place] [address] Xavier Paredes, DMD 06/25/2024 Telephone [facility] [address], [place] [phone] Kenny Vides, DMD 05/22/2024 Travel from Last 3 Months Immunizations [...] Sign Reading Time Taken Comments Blood Pressure 122/64 07/21/2024 11:15 AM EST Pulse 65 07/21/2024 11:15 AM EST Temperature 37.1 ??C (98.8 ??F) 07/13/2024 1:55 PM ES T Respiratory Rate 16 07/13/2024 1:55 PM EST Oxygen Saturation 99% 07/13/2024 10:28 AM EST Inhaled Oxygen Concentration - - Weight 57.4 kg (126 lb 8 oz) 07/13/2024 1:55 PM EST Height 167.6 cm (5' 6 ) 07/13/2024 1:55 PM EST Body Mass Index 20.42 07/13/2024 1:55 PM EST Plan of Treatment Health Maintenance Due Date Last Done Comments Dental Oral Exam 04/13/2024 10/11/2023 Pap Smear 07/11/2024 07/11/2021 Hepatitis B Vaccines (3 of 3 - 19+ 3-dose series) 09/07/2024 07/13/2024, 10/23/2023 Dental X-Ray: Bitewings 10/11/2024 10/11/19 24, 07/26/2023 Influenza Vaccine (#1) 2024 Postp oned from 02/02/2024 (Patient Refused) Dental Prophylaxis 01/19/2025 07/21/2024, 10/11/2023 Alcohol/Substance Use Screening 07/13/2025 07/13/2024 COVID-19 Vaccine (1 - 2023-2 5 season) 2025 Postponed from 02/01 (Patient Refused) Depression Screening 07/13/2025 07/13/2024, 07/13/2024 Family Planning (PISQ) 07/13/2025 07/13/2024 SDOH Screening 07/13/2025 07/13/2024 Tobacco Screening 07/21/2025 07/21/2024 Dental X-Ray: Full Mouth 10/11/2026 10/11/2023 DTaP/Tdap/Td Vaccines (2 - T d or Tdap) 08/13/2033 08/14/2023 Zoster Vaccines (1 of 2) 2044 RSV Patients and Patients Aged 60 years or older (1 - 1-dose 75+ series) 2069 HIV Screening Completed 07/13/2024, 06/28/2021 Hepatitis C Screening Completed 07/13/2024 , 06/28/2021 HIB Vaccines Aged Out No longer [...] Procedure Name Priority Date/Time Associated Diagnosis Comments CASE PRESENTATION, DETAILED AND EXTENSIVE TREATMENT PLANNING Routine 07/21/2024 11:00 AM EST ORAL HYGIENE INSTRUCTIONS Routine 07/21/2024 11:00 AM EST Full PROPHYLAXIS - ADULT Routine 07/21/2024 11:00 AM EST HPV DNA, LOW/HIGH RISK Routine 2:30 PM EST BACTERIAL VAGINOSIS PANEL Routine 07/13/2024 2:20 PM EST HIV 1/2 ANTIGEN/ANTIBODY, FOURTH GENERATION W/RFL Routine 07/13/2024 1:15 PM EST Healthcare maintenance RPR (MONITOR) W/REFL TITER Routine 07/13/2024 1:15 PM EST Healthcare maintenance HEPATITIS C VIRAL RNA, QUANTITATIVE, REAL-TIME PCR Routine 07/13/2024 1:15 PM EST Healthcare maintenance [...] Routine 07/13/2024 1:15 PM EST Healthcare maintenance INTRAORAL - COMPLETE SERIES OF RADIOGRAPHIC IMAGES Routine 10/11/2023 9:00 AM EDT Secondary dental caries associated with failed or defective dental hinduism Gingivitis COMPREHENSIVE ORAL EVALUATION - NEW OR ESTABLISHED PATIENT Routine 10/11/2023 9:00 AM EDT Secondary dental caries associated with failed or defective dental hinduism Gingivitis THINPREP IMAGING SYSTEM PAP Routine 07/11/2021 3:17 PM EST from Last 3 Months or Most Recently Relevant to Health Maintenance Results * (ABNORMAL) HPV DNA, Low/High Risk (07/13/2024 2:30 PM EST) HPV High Risk Positive(A) Negative [facility] HPV Genotype 16 Negative Negative [facility] HPV Genotype 18 Negative Negative [facility] Comment:HPV testing performe d at [facility] (CLIA#[id number]), [address] [place] [address].Testing for HPV was performed using the Yoan DANIEL 6800system. The presence of HPV in the female genital tract isassociated with a number of diseases, including cervicalcarcinoma. The HPV DNA high risk pool tests for HPV 31, 33,35, 39, 45, 51, 52, 56, 58, 59, 66 and 68. The testing forHPV 16 and 18 genotypes has also been performed. A positiveresult indicates detection of nucleic acid sequences fromone or more subtypes, whereas a negative result indicatessuch sequences were not detected. 07/13/2024 2:30 PM EST 07/14/2024 9:30 AM EST us Kell TURCIOS LAB BLOOD ORDERABLES Clari virk Result [facility] [address] [place] [phone] * Bacterial Vaginosis (07/13/2024 2:20 PM EST) TRICHOMONAS VAGINALIS DETECTION BY PCR NOT DETECTED Not Detect [facility] BACTERIAL VAGINOSIS DETECTION BY PCR NEGATIVE Negative [facility] Comment:The BV organism targ ets of the Xpert Xpress MVP test can becommensal in women; Xpert Xpress MVP positive results forbacterial vaginosis should be considered in conjunction withother clinical and patient information to determine thedisease status. Organisms that are not detected by the XpertXpress MVP test have also been reported to be associatedwith BV and aerobic vaginitis.The Xpert Xpress MVP test performance has not been evaluatedin patients under the age of 14. STELLA GROUP DETECTION BY PCR NOT DETECTED Not Detect [facility] Stella glab krusei PCR NOT DETECTED Not Detect [facility] 07/13/2024 2:20 PM EST 07/13/2024 4:46 PM EST Mery Masters [facility] MICROBIOLOGY - GENERAL ORD ERABLES Final Result [facility] [address] [place] [phone] * (ABNORMAL) Vitamin D, 25-Hydroxy, Total, Immunoassay (07/13/2024 1:15 PM EST) Vitamin D 25-OH Total 17.9(L) >30 ng/mL [facility] Comment:Health Based Referen ce Values*< 20 ng/mL Agshwgruo49-48 ng/mL Insufficient> 30 ng/mL Sufficient*Preeti ÁLVAREZ. N [...] 07/13/2024 4:02 PM EST us Mery Masters JEWELRY DESIGNER LAB BLOOD ORDERABLES Final Res ult Performing Organization Address [facility]/ZIP Co de Phone Number [facility] [address] [place] [phone] * TSH with Reflex to Free T4 (07/13/2024 1:15 PM EST) TSH reflex Free T4 0.92 0.32 - 4.0 uIU/mL [facility] Blood 07/13/2024 1:15 PM EST 07/13/2024 4:02 PM EST us Mery Masters JEWELRY DESIGNER LAB BLOOD ORDERABLES Final Res ult Performing Organization Address [facility] Co de Phone Number [facility] [address] [place] [phone] * Hepatitis C Viral RNA, Quantitative, Real-Time PCR (07/13/2024 1:15 PM EST) Pathologist [facility] Hepatitis C Viral Load <15 NOT DETECTED NOT DETECTED IU/mL [facility] HCV Log PCR <1.18 NOT DETECTED NOT DETECTED Log IU/mL [facility] Comment:For additional infor mation, please refer [email or web address]/faq/[email or web address](This link is being provided for informational/educational purposes only.)THIS TEST WAS PERFORMED AT:[facility] [place] [phone] BRONSON MD Blood 07/13/2024 1:15 PM EST 07/13/2024 4:02 PM EST us Mery Masters JEWELRY DESIGNER LAB BLOOD ORDERABLES Final Res ult Performing Organization Address [facility]/ZIP Co de Phone Number [facility] [address] [place] [phone] * (ABNORMAL) CBC auto differential (07/13/2024 1:15 PM EST) White Blood Count 6.0 4.8 - 10.8 X10*3/uL [facility] Red Blood Count 4.17(L) 4.20 - 5.50 X10*6/uL [facility] Hemoglobin 11.4(L) 12.0 - 16.0 g/dl [facility] Hematocrit 32.7(L) 37.0 - 47.0 % [facility] Mean Corpuscular Volume 78.4(L) 80.0 - 98.0 fL [facility] Mean Corpuscular Hemoglobin 27.3 27.0 - 33.0 pg [facility] Mean Corpuscular HGB Conc 34.9 31.0 - 35.0 g/dl [facility] Red Cell Distribution Width 13.2 11.0 - 16.0 % [facility] Platelet Count 229 160 - 400 X10*3/uL [facility] Mean Platelet Volume 12.1 9.4 - 12.3 fL [facility] Neutrophils Percent Auto 55.4 45 - 73 % [facility] Imm Gran Pct Auto 0.2 0.0 - 0.4 % [facility] Lymphocytes Percent Auto 35.6 20 - 40 % [facility] Monocytes Percent Auto 7.0 2 - 11 % [facility] Eosinophils Percent Auto 1.5 0 - 4 % [facility] Basophils Percent Auto 0.3 0 - 2 % [facility] NRBC Pct Auto 0.0 0.0 - 0.2 /100WBC [facility] Neutrophils Absolute Auto 3.3 2.0 - 8.3 x10*3/uL [facility] Imm Gran Abs Auto 0.01 0.00 - 0.03 X10*3/uL [facility] Lymphocytes Absolute Auto 2.1 1.2 - 4.9 X10*3/uL [facility] Monocytes Absolute Auto 0.4 0.1 - 1.2 X10*3/uL [facility] Eosinophils Absolute Auto 0.1 0.0 - 0.4 X10*3/uL [facility] Basophils Absolute Auto 0.0 0.0 - 0.2 X10*3/uL [facility] NRBC Abs Auto 0.000 0.0 - 0.012 X10*3/uL [facility] Blood Venous blood specimen / Unknown 07/13/2024 1:15 PM EST 07/13/2024 4:02 PM EST Mery Phalen JEWELRY DESIGNER LAB BLOOD ORDERABLES Final Res ult Performing Organization Address [facility] Co de Phone Number [facility] [address] [place] [phone] * (ABNORMAL) Iron And Total Iron Binding Capacity (07/13/2024 1:15 PM EST) [facility] Iron 143 30 - 160 mcg/dL [facility] Total Iron Binding Capacity 243 228 - 428 mcg/dL [facility] Percent Iron Saturation 59(H) 15 - 50 % [facility] Unsaturated Iron Binding 100 ug/dL [facility] Blood Venous blood specimen / Unknown 07/13/2024 1:15 PM EST 07/13/2024 4:02 PM EST Mery [facility] LAB BLOOD ORDERABLES Final Res ult Performing Organization Address [facility] de Phone Number [facility] [address] [place] [phone] * Chlamydia/N. Gonorrhoeae RNA, TMA, Urogenitial (07/13/2024 1:15 PM EST) [facility] CT PCR NOT DETECTED Not Detect. [facility] Comment:A not detected test result does [...] psychologicalconsequences. NG PCR NOT DETECTED Not Detect. [facility] Comment:A not detected test result does [...] PM EST 07/13/2024 4:01 PM EST Narrative [facility] - 07/14/2024 5:34 AM EST Urine Mery Masters [facility] MICROBIOLOGY - GENERAL ORD ERABLES Final Result [facility] [address] [place] [phone] * RPR (Monitor) with Reflex to??Titer (07/13/2024 1:15 PM EST) RPR (Monitor) w/Refl Titer NON-REACTI VE NON-REACT BEBE [facility] Comment:THIS TEST WAS PERFOR MED AT:[facility] [place] [phone] BRONSON MD Rapid Plasma Reagin Ab Titer TNP [facility] Blood Venous blood specimen / Unknown 07/13/2024 1:15 PM EST 07/13/2024 4:02 PM EST Mery Masters [facility] BLOOD ORDERABLES Final Res ult Performing Organization Address City/[facility]/ZIP Co de Phone Number [facility] [address] [place] [phone] * HIV-1/2 Antigen and Antibodies, Fourth Generation, with Reflexes (07/13/2024 1:15 PM EST) HIV AB/AG Nonreactive Nonreactive [facility] Comment:HIV-1 p24 Ag and/or HIV-1/HIV-2 Ab not detected.A test result that is nonreactive does not exclude thepossibility of exposure to or infection with HIV-1 and/orHIV-2. Nonreactive results in this assay for individualswith prior exposure to HIV-1 and/or HIV-2 may be due toantigen and antibody levels that are below the limit ofdetection of this assay.The [employer] Orthoticsnii-nexus HIV Ag/Ab Combo assay result andsupplemental assay results should be interpreted inconjunction with the patient's clinical presentation,history and other laboratory results. If the results areinconsistent with clinical evidence, additional testing issuggested to confirm the result. Blood Venous blood specimen / Unknown 07/13/2024 1:15 PM EST 07/13/2024 4:02 PM EST Mery Masters [facility] BLOOD ORDERABLES Final Res ult Performing Organization Address City/[facility]/ZIP Co de Phone Number [facility] [address] [place] [phone] * Hemoglobin A1c (07/13/2024 1:15 PM EST) Hemoglobin A1c 4.7 <6.0 % [facility] Comment:Hemoglobin A1C Refer ence Range Adults: 4.8 - 6.0 % Non diabetic: < 6.0 % Goal: < 7.0 %Additional Action Suggested: > 8.0 %Note: Hemoglobin A1c results are invalid for patients with abnormal amounts of HbF. Blood transfusions may impact the HbA1c concentration in the patient sample. Estimated Average Glucose 88 mg/dL [facility] Comment:eAG = Estimated ave rage glucose which is %A1C expressed asaverage glucose, using the formula of the [id number] Glucose study (ADAG), Diabetes Care, Vol.31,#8,Jan. 2007 Blood Venous blood specimen / Unknown 07/13/2024 1:15 PM EST 07/13/2024 4:02 PM EST Mery Masters JEWEL[employer] DESIGNER LAB BLOOD ORDERABLES Final Res ult Performing Organization Address [facility]/ZIP Co de Phone Number [facility] [address] [place] [address] [phone] * Ferritin (07/13/2024 1:15 PM EST) Ferritin 80 10 - 122 ng/mL [facility] Blood Venous blood specimen / Unknown 07/13/2024 1:15 PM EST 07/13/2024 4:02 PM EST Mery Masters [facility] BLOOD ORDERABLES Final Res ult Performing Organization Address [facility] Co de Phone Number [facility] [address] [place] [address] [phone] * Lipid Panel, Standard (07/13/2024 1:15 PM EST) Triglycerides 61 <150 mg/dL [facility] Comment:Desirable Triglyceri de: less than 150 mg/dLBorderline High Triglyceride 150-199 mg/dLHigh Triglyceride: 200-499 mg/dLVery High Triglyceride: greater than or equal to 5OO mg/dL Cholesterol 156 <200 mg/dL [facility] Comment:Desirable Cholestero l: less than 200 mg/dLBorderline High Cholesterol: 200-239 mg/dLHigh Cholesterol: greater than 239 mg/dL LDL Cholesterol Calculated 77 <100 mg/dL [facility] Comment:Desirable LDL: less than 100 mg/dLNear Optimal/Above Optimal LDL: 110- 129 mg/dLBorderline High LDL: 130-159 mg/dLHigh LDL: 160-189 mg/dLVery High LDL: greater than or equal to 190 mg/dL HDL Cholesterol 67 >40 mg/dL [facility] Comment:Desirable HDL: great er than 40 mg/dL Note: This HDL assay may give artificially low results in patients with liver disease. Blood Venous blood specimen / Unknown 07/13/2024 1:15 PM EST 07/13/2024 4:02 PM EST us Mery Masters JEWELRY DESIGNER LAB BLOOD ORDERABLES Final Res ult [facility] [address] [place] [address] [phone] * (ABNORMAL) Comprehensive Metabolic Panel (07/13/2024 1:15 PM EST) Sodium 140 135 - 145 mmol/L [facility] Potassium 3.9 3.3 - 5.1 mmol/L [facility] Chloride 109(H) 96 - 108 mmol/L [facility] Carbon Dioxide 25 22 - 29 mmol/L [facility] Anion Gap 10(L) 12 - 20 [facility] Urea Nitrogen (BUN) 10 9 - 16 mg/dL [facility] Creatinine, Serum 0.61 0.5 - 1.4 mg/dL [facility] Estimated Glomerular Filt Rate >60 [facility] Comment:Chronic Kidney Disea se: Estimated GFR < 60 mL/min/[id number] Kidney Disease: Estimated GFR < 15 mL/min/1.73m2 Glucose 87 60 - 115 mg/dL [facility] Calcium 9.0 8.4 - 10.2 mg/dL [facility] Bilirubin, Total 1.4(H) 0.0 - 1.0 mg/dL [facility] Aspartate Amino Transferase 21 5 - 31 U/L [facility] Alanine Aminotransferase 18 0 - 31 U/L [facility] Total Protein 7.6 6.5 - 8.0 g/dL [facility] Albumin Level 4.3 3.5 - 5.0 g/dL [facility] Alkaline Phosphatase 38(L) 39 - 117 U/L [facility] Blood Venous blood specimen / Unknown 07/13/2024 1:15 PM EST 07/13/2024 4:02 PM EST us Mery Masters JEWELRY DESIGNER LAB BLOOD ORDERABLES Final Res ult [facility] [address] [place] [address] [phone] * (ABNORMAL) THINPREP TIS PAP (07/11/2021 [...] been evaluated with computer assisted technology. [facility] Securities Attorney : SEE COMMENT [facility] Comment: [place], [place](ASCP) CT screening location: [address] ??[phone] General Categorization: EPITHELIAL CELL ABNORMALITY(A) [facility] Interpretation/R esult: Atypical Squamous Cells of Undetermined Significance (ASC-US)(A) [facility] LMP: NONE [facility] PATHOLOGIST: SEE COMMENT [facility] Comment: Eliseo Pagan M.D., Board Certified in Anatomic and Clinical Pathology (electronic signature) Consulting Pathologist [facility] [address] [place] [address] ??[phone] Prev. BX: NONE [facility] Prev. PAP: NONE [facility] SOURCE: None given [facility] Statement Of Adequacy: SEE COMMENT [facility] Comment: Satisfactory for evaluation. Endocervical/transformation zone component present. 07/11/2021 3:17 PM EST us Kell Pritchett CNM LAB PATHOLOGY ORDERABLES Final Result [facility] [address] [place] [address], from Last 3 Months or Most Recently Relevant to Health Maintenance Insurance [facility] FULL [employer] DENTAL-[employer] [facility] MEDICAID LIMITED ADULT DENTAL - HSN FULL (MEDICAID) Care Teams Hand Striper Relationship Specialty Start Date End Date Mery Masters FNP [address] [place] [id number] PCP - General Family Medicine 07/03/21
--- OUTSIDE RECORDS SUMMARY | 2024-07-21 16:30 | XMS_ITS | Encounter Summary ---
Author Organization [facility] Address [address] [place] [address] Care Team Providers Care Electrical Maintenance Mechanic Name Role Phone Mery Masters Primary Care Provider [phone] Reason for Visit * Reason Onset Date Comments transportation issue 07/14/2021 Encounter Details Date Type Department Care Team (Late st Contact Info) Description 07/14/2021 Telephone [facility] [address] [place] [address] [phone] Telephone Intake, Staff transportation issue Social History [...] - 07/14/2021 9:28 AM EST Mery Masters- [facility] which is this pt's primary care provider [...] . A good call back number is [phone]. documented in this encounter Plan of Treatment Not on file documented as of this encounter Visit Diagnoses Not on filedocumented in this encounter Care Teams Electrical Maintenance Mechanic Relationship Specialty Start Date End Date Mery Masters [address] [place] [id number] PCP - General Family Medicine 08/16/23 documented as of this encounter
--- OUTSIDE RECORDS SUMMARY | 2024-07-21 16:30 | XMS_ITS | Encounter Summary ---
Author Organization [employer] Address [address] [facility] 7 [place] [address] Care Team Providers Care Electricity Trading Analyst Name Role Phone Mery Masters Primary Care Provider [phone] Reason for Visit * Reason Onset Date Comments Med Refill 07/15/2024 Encounter Details Date Type Department Care Team (Late st Contact Info) Description 07/15/2024 Refill [facility] [address] [place] [address] Mery Masters FNP [address] [place] [address] Social History Tobacco Use Types Packs/Day Years [...] your housing situation today? I have tom terri 07/13/[address] you li [...] as of this encounter Plan of Treatment Not on file documented as of this encounter Visit Diagnoses Not on filedocumented in this encounter Additional Health Concerns Assessment Noted Time PHQ-9 Depression Total Score: 0 07/13/19 25 11:28 AM EST documented as of this encounter Care Teams Electricity Trading Analyst Relationship Specialty Start Date End Date Mery Masters FNP [address] [place] [phone] PCP - General Family Medicine 07/03/21 documented as of this encounter
--- OUTSIDE RECORDS SUMMARY | 2024-07-21 16:30 | XMS_ITS | Encounter Summary ---
Author Organization [employer] Address [address] [facility] [address] [place] [address] Care Team Providers Care Mold Release Worker Name Role Phone Mery Masters DOYLE Primary Care Provider [phone] Encounter Details Date Type Department Care Team [...] documented as of this encounter Care Teams Mold Release Worker Relationship Specialty Start Date End Date Mery Masters FNP [address] [place] [id number] PCP - General Family Medicine 07/03/21 documented as of this encounter
--- OUTSIDE RECORDS SUMMARY | 2024-07-21 16:30 | XMS_ITS | Encounter Summary ---
Author Organization [employer] Address [address] [facility] 7 [place] [address] Care Team Providers Care Personal Insurance Advisor Name Role Phone Mery Masters Primary Care Provider Reason for Visit * Reason Onset Date Comments Nurse Triage 05/13/2023 Encounter Details Date Type Department Care Team (Late st Contact Info) Description 05/13/2023 Telephone [facility] [address] [place] [address] Mery Masters FNP [address] [place] [address] Nurse Triage Social History Tobacco Use Types [...] with others, in a hotel, in a nursing home, living outside on the street, on [...] 1:58 PM EST Discharge records requested from [facility] confirmation received. * Telephone Encounter - Tammie Cevallos RN - 05/13/2023 1:42 PM EST Admitted to [facility] 05/08--05/12 Medical Records number to obtain notes [phone] F Future Appointments Date Time Provider Department Center 05/20/2023 9:30 AM DOYLE Rodrigues [facility] Sent to care coordinators to obtain discharge [...] informs that recently admitted to hospital at [facility] 05/08--05/12 (pt currently visiting in [place]) Per pt medications was changed Keppra 1500mg daily topiramate 200mg daily. Per pt is due to return to [place] this weekend. Pt provided Medical Records number to obtain notes [phone]. Pt [facility] PCP upon return. Agrees to visit in [facility], booked for HDF. Reviewed home care [...] Department Center 05/20/2023 9:30 AM DOYLE Rodrigues [facility] Video visit offer not recorded Positive Triage [...] caller accepted this outcome Please contact at [phone] Nam[place]ian documented in this encounter Plan of Treatment Not on file documented as of this encounter Visit Diagnoses Not on filedocumented in this encounter Care Teams Personal Insurance Advisor Relationship Specialty Start Date End Date Mery Masters FNP [address] [place] [id number] PCP - General Family Medicine 07/03/21 documented as of this encounter
--- OUTSIDE RECORDS SUMMARY | 2024-07-21 16:30 | XMS_ITS | Encounter Summary ---
Author Organization [employer] Address [address] [facility] 7 [place] [address] Care Team Providers Care Criminal Justice Lawyer Name Role Phone Mery Masters DOYLE Primary Care Provider [phone] Reason for Visit * Reason Onset Date Comments Chart Prep 07/08/2024 Encounter Details Date Type Department Care Team ([facility] st Contact Info) Description 07/08/2024 Telephone [facility] [address] [place] [address] Rolly Forrester [place] Chart Prep Social History [...] documented as of this encounter Care Teams Criminal Justice Lawyer Relationship Specialty Start Date End Date Mery Masters FNP [address] [place] [address] PCP - General Family Medicine 07/03/21 documented as of this encounter
--- OUTSIDE RECORDS SUMMARY | 2024-07-21 16:30 | XMS_ITS | Encounter Summary ---
Author Organization [employer] Address [address] [facility] 7[address] [place] [address] Care Team Providers Care Lower School Spanish Teacher Name Role Phone Mery Masters Primary Care Provider [phone] Reason for Visit * Reason Onset Date Comments Results 07/21/2024 Encounter Details Date Type Department Care Team ([facility] st Contact Info) Description 07/21/2024 Telephone [facility] MED[facility]INE [address] [place] [address] Mery Masters FNP [address] [place] [address] Results Social History Tobacco Use Types Packs/Day Years [...] encounter Miscellaneous Notes * Telephone Encounter - Jose Huff - 07/21/2024 9:34 AM EST TC from pt requesting call back regarding Results. Type of results: Blood test and other test that she got done Date when done: 07/13/24 Facility: [facility] Contact pt at [phone] documented in this encounter Plan of Treatment Not on file documented as of this encounter Visit Diagnoses Not on filedocumented in this encounter Additional Health Concerns Assessment Noted Time PHQ-9 Depression Total Score: 0 07/13/19 11:28 AM EST documented as of this encounter Care Teams Lower School Spanish Teacher Relationship Specialty Start Date End Date Mery Masters FNP [address] [place] [phone] PCP - General Family Medicine 07/03/21 documented as of this encounter
--- OUTSIDE RECORDS SUMMARY | 2024-07-21 16:30 | XMS_ITS | Encounter Summary ---
Author Organization [employer] Address [address] [facility] 7t [place] [address] Care Team Providers Care Pattern Drum Maker Name Role Phone Mery Masters Primary Care Provider [phone] Encounter Details Date Type Department Care Team ([facility] st Contact Info) Description 07/13/2024 10:15 AM EST Office Visit [facility] [address] [place], [place] [phone] Mery Masters FNP [address] [place], [place] [phone] POTS (postural orthostatic tachycardia syndrome) (Primary Dx); [...] the past 12 months, has t he [employer], gas, oil or water company threatened to [...] PCP visit: 10/23/23. Visiting with son in [place]. Reports that she self tapered off all [...] (CMS/HCC) Current Assessment & Plan Followed by [facility] Neurology EEG wnl October 2022 through [facility] Neuro Previous rx: Topiramate 200mg BID, keppra 1000mg BID Currently off tx since March 2024 (self DC) and has had no seizures or symptoms since POTS (postural orthostatic tachycardia syndrome) - Primary Overview Diagnosed during [facility] Admission May 2023 Previous tx: midodrine 10mg TID, metoprolol tartrate 12.5mg BID, and fludrocortisone 0.1mg daily Following with [facility] Cards - Dr. Vasquez & [facility] Neurology Plasma metanephrine levels: wnl Tilt table [...] Other Healthcare maintenance Overview Optometry: referral to [facility] eye care placed 08/27/23 Dental: Referral to [facility] Dental Jul 2023 Pap: 07/11/21: ASCUS, HPV [...] epilepsy without status epilepticus (CMS/HCC) Followed by [facility] Neurology, encouraged to schedule follow up appt EEG wnl October 2022 through [facility] Neuro Previous rx: Topiramate 200mg BID, keppra [...] on file documented as of this encounter Procedures Procedure Name Priority Date/Time Associated Diagnosis Comments VITAMIN D,25-OH,TOTAL,IA Routine 07/13/2024 1:15 PM EST Healthcare maintenance TSH W/REFLEX TO FT4 Routine 07/13/2024 1 :15 PM EST Healthcare maintenance HEPATITIS C VIRAL [...] 1:15 PM EST) HIV AB/AG Nonreactive Nonreactive [facility] Comment:HIV-1 p24 Ag and/or HIV-1/HIV-2 Ab not detected.A test result that is nonreactive does not exclude thepossibility of exposure to or infection with HIV-1 and/orHIV-2. Nonreactive results in this assay for individualswith prior exposure to HIV-1 and/or HIV-2 may be due toantigen and antibody levels that are below the limit ofdetection of this assay.The Five Below HIV Ag/Ab Combo assay result andsupplemental assay results should be interpreted inconjunction with the patient's clinical presentation,history and other laboratory results. If the results areinconsistent with clinical evidence, additional testing issuggested to confirm the result. Blood Venous blood specimen / Unknown 07/13/2024 1:15 PM EST 07/13/2024 4:02 PM EST us Mery Masters PALLIATIVE CARE NURSE LAB BLOOD ORDERABLES Final Res ult [facility] [address] [place] [phone] * RPR (Monitor) with Reflex to??Titer (07/13/2024 1:15 PM EST) RPR (Monitor) w/Refl Titer NON-REACTI VE NON-REACT BEBE [facility] Comment:THIS TEST WAS PERFOR MED AT:[facility] [address] [phone] BRONSON MD Rapid Plasma Reagin Ab Titer TNP [facility] Blood Venous blood specimen / Unknown 07/13/2024 1:15 PM EST 07/13/2024 4:02 PM EST Mery Masters [facility] BLOOD ORDERABLES Final Res ult Performing Organization Address [facility]/ZIP Co de Phone Number [facility] [address] [place] [phone] * Hepatitis C Viral RNA, Quantitative, Real-Time PCR (07/13/2024 1:15 PM EST) Pathologist [facility] Hepatitis C Viral Load <15 NOT DETECTED NOT DETECTED IU/mL [facility] HCV Log PCR <1.18 NOT DETECTED NOT DETECTED Log IU/mL [facility] Comment:For additional infor mation, please refer [email or web address].[employer]/faq/IDT47h6(This link is being provided for informational/educational purposes only.)THIS TEST WAS PERFORMED AT:[facility] [address] [id number] BRONSON MD Blood 07/13/2024 1:15 PM EST 07/13/2024 4:02 PM EST Mery Masters [facility] BLOOD ORDERABLES Final Res ult Performing Organization Address [facility]/ZIP Co de Phone Number [facility] [address] [place] [phone] [phone] * Chlamydia/N. Gonorrhoeae RNA, TMA, Urogenitial (07/13/2024 1:15 PM EST) CT PCR NOT DETECTED Not Detect. [facility] Comment:A not detected test result does [...] psychologicalconsequences. NG PCR NOT DETECTED Not Detect. [facility] Comment:A not detected test result does [...] PM EST 07/13/2024 4:01 PM EST Narrative [facility] - 07/14/2024 5:34 AM EST Urine Mery Masters [facility] MICROBIOLOGY - GENERAL ORD ERABLES Final Result [facility] [address] [place] [phone] * (ABNORMAL) Vitamin D, 25-Hydroxy, Total, Immunoassay (07/13/2024 1:15 PM EST) Vitamin D 25-OH Total 17.9(L) >30 ng/mL [facility] Comment:Health Based Referen ce Values*< 20 ng/mL Sazpeknxg71-81 ng/mL Insufficient> 30 ng/mL Sufficient*Preeti ÁLVAREZ. N [...] PM EST 07/13/2024 4:02 PM EST us Merycodie Masters PALLIATIVE CARE NURSE LAB BLOOD ORDERABLES Final Res ult Performing Organization Address City/[facility]/ZIP Co de Phone Number [facility] [address] [place] [phone] * (ABNORMAL) Iron And Total Iron Binding Capacity (07/13/2024 1:15 PM EST) Iron 143 30 - 160 mcg/dL [facility] Total Iron Binding Capacity 243 228 - 428 mcg/dL [facility] Percent Iron Saturation 59(H) 15 - 50 % [facility] Unsaturated Iron Binding 100 ug/dL [facility] Blood Venous blood specimen / Unknown 07/13/2024 1:15 PM EST 07/13/2024 4:02 PM EST us Mery Phalen PALLIATIVE CARE NURSE LAB BLOOD ORDERABLES Final Res ult Performing Organization Address City/[facility]/ZIP Co de Phone Number [facility] [address] [place] [phone] * Ferritin (07/13/2024 1:15 PM EST) Ferritin 80 10 - 122 ng/mL [facility] Blood Venous blood specimen / Unknown 07/13/2024 1:15 PM EST 07/13/2024 4:02 PM EST Mery Masters PALLIATIVE CARE NURSE LAB BLOOD ORDERABLES Final Res ult [facility] [address] [place] [phone] * (ABNORMAL) CBC auto differential (07/13/2024 1:15 PM EST) Pathologist [facility] White Blood Count 6.0 4.8 - 10.8 X10*3/uL [facility] Red Blood Count 4.17(L) 4.20 - 5.50 X10*6/uL [facility] Hemoglobin 11.4(L) 12.0 - 16.0 g/dl [facility] Hematocrit 32.7(L) 37.0 - 47.0 % [facility] Mean Corpuscular Volume 78.4(L) 80.0 - 98.0 fL [facility] Mean Corpuscular Hemoglobin 27.3 27.0 - 33.0 pg [facility] Mean Corpuscular HGB Conc 34.9 31.0 - 35.0 g/dl [facility] Red Cell Distribution Width 13.2 11.0 - 16.0 % [facility] Platelet Count 229 160 - 400 X10*3/uL [facility] Mean Platelet Volume 12.1 9.4 - 12.3 fL [facility] Neutrophils Percent Auto 55.4 45 - 73 % [facility] Imm Gran Pct Auto 0.2 0.0 - 0.4 % [facility] Lymphocytes Percent Auto 35.6 20 - 40 % [facility] Monocytes Percent Auto 7.0 2 - 11 % [facility] Eosinophils Percent Auto 1.5 0 - 4 % [facility] Basophils Percent Auto 0.3 0 - 2 % [facility] NRBC Pct Auto 0.0 0.0 - 0.2 /100WBC [facility] Neutrophils Absolute Auto 3.3 2.0 - 8.3 x10*3/uL [facility] Imm Gran Abs Auto 0.01 0.00 - 0.03 X10*3/uL [facility] Lymphocytes Absolute Auto 2.1 1.2 - 4.9 X10*3/uL [facility] Monocytes Absolute Auto 0.4 0.1 - 1.2 X10*3/uL [facility] Eosinophils Absolute Auto 0.1 0.0 - 0.4 X10*3/uL [facility] Basophils Absolute Auto 0.0 0.0 - 0.2 X10*3/uL [facility] NRBC Abs Auto 0.000 0.0 - 0.012 X10*3/uL [facility] Blood Venous blood specimen / Unknown 07/13/2024 1:15 PM EST 07/13/2024 4:02 PM EST us Mery Masters PALLIATIVE CARE NURSE LAB BLOOD ORDERABLES Final Res ult [facility] [address] [place] [phone] * (ABNORMAL) Comprehensive Metabolic Panel (07/13/2024 1:15 PM EST) Sodium 140 135 - 145 mmol/L [facility] Potassium 3.9 3.3 - 5.1 mmol/L [facility] Chloride 109(H) 96 - 108 mmol/L [facility] Carbon Dioxide 25 22 - 29 mmol/L [facility] Anion Gap 10(L) 12 - 20 [facility] Urea Nitrogen (BUN) 10 9 - 16 mg/dL [facility] Creatinine, Serum 0.61 0.5 - 1.4 mg/dL [facility] Estimated Glomerular Filt Rate >60 [facility] Comment:Chronic Kidney Disea se: Estimated GFR < 60 mL/min/1.31y1Ydtdek Kidney Disease: Estimated GFR < 15 mL/min/1.73m2 Glucose 87 60 - 115 mg/dL [facility] Calcium 9.0 8.4 - 10.2 mg/dL [facility] Bilirubin, Total 1.4(H) 0.0 - 1.0 mg/dL [facility] Aspartate Amino Transferase 21 5 - 31 U/L [facility] Alanine Aminotransferase 18 0 - 31 U/L [facility] Total Protein 7.6 6.5 - 8.0 g/dL [facility] Albumin Level 4.3 3.5 - 5.0 g/dL [facility] Alkaline Phosphatase 38(L) 39 - 117 U/L [facility] Blood Venous blood specimen / Unknown 07/13/2024 1:15 PM EST 07/13/2024 4:02 PM EST Mery Masters [facility] BLOOD ORDERABLES Final Res ult Performing Organization Address [facility] Co de Phone Number [facility] [address] [place] [phone] * TSH with Reflex to Free T4 (07/13/2024 1:15 PM EST) TSH reflex Free T4 0.92 0.32 - 4.0 uIU/mL [facility] Blood 07/13/2024 1:15 PM EST 07/13/2024 4:02 PM EST Mery TargAnoxras PALLIATIVE CARE NURSE LAB BLOOD ORDERABLES Final Res ult Performing Organization Address City/[facility]/ZIP Co de Phone Number [facility] [address] [place] [phone] * Hemoglobin A1c (07/13/2024 1:15 PM EST) Hemoglobin A1c 4.7 <6.0 % [facility] Comment:Hemoglobin A1C Refer ence Range Adults: 4.8 - 6.0 % Non diabetic: < 6.0 % Goal: < 7.0 %Additional Action Suggested: > 8.0 %Note: Hemoglobin A1c results are invalid for patients with abnormal amounts of HbF. Blood transfusions may impact the HbA1c concentration in the patient sample. Estimated Average Glucose 88 mg/dL [facility] Comment:eAG = Estimated ave rage glucose which is %A1C expressed asaverage glucose, using the formula of the [id number]-MmvrlgnCftpljq Glucose study (ADAG), Diabetes Care, Vol.31,#8,Jan. 2007 Blood Venous blood specimen / Unknown 07/13/2024 1:15 PM EST 07/13/2024 4:02 PM EST us Mery Masters PALLIATIVE CARE NURSE LAB BLOOD ORDERABLES Final Res ult [facility] [address] [place] [phone] * Lipid Panel, Standard (07/13/2024 1:15 PM EST) Triglycerides 61 <150 mg/dL [facility] Comment:Desirable Triglyceri de: less than 150 mg/dLBorderline High Triglyceride 150-199 mg/dLHigh Triglyceride: 200-499 mg/dLVery High Triglyceride: greater than or equal to 5OO mg/dL Cholesterol 156 <200 mg/dL [facility] Comment:Desirable Cholestero l: less than 200 mg/dLBorderline High Cholesterol: 200-239 mg/dLHigh Cholesterol: greater than 239 mg/dL LDL Cholesterol Calculated 77 <100 mg/dL [facility] Comment:Desirable LDL: less than 100 mg/dLNear Optimal/Above Optimal LDL: 110- 129 mg/dLBorderline High LDL: 130-159 mg/dLHigh LDL: 160-189 mg/dLVery High LDL: greater than or equal to 190 mg/dL HDL Cholesterol 67 >40 mg/dL [facility] Comment:Desirable HDL: great er than 40 mg/dL Note: This HDL assay may give artificially low results in patients with liver disease. Blood Venous blood specimen / Unknown 07/13/2024 1:15 PM EST 07/13/2024 4:02 PM EST us Mery KWON LAB BLOOD ORDERABLES Final Res ult [facility] [address] [place] [phone] documented in this encounter Visit Diagnoses [...] documented as of this encounter Care Teams Pattern Drum Maker Relationship Specialty Start Date End Date Mery Masters FNP [address] [place] [address] PCP - General Family Medicine 07/03/21 documented as of this encounter
--- OUTSIDE RECORDS SUMMARY | 2024-07-21 16:30 | XMS_ITS | Encounter Summary ---
Author Organization [employer] Address [address] [facility] [address] [place] [address] Care Team Providers Care Professional Shopper Name Role Phone Mery Masters DOYLE Primary Care Provider Reason for Visit * Reason Comments Routine Cleaning Encounter Details Date Type Department Care Team ([facility] st Contact Info) Description 07/21/2024 11:00 AM EST Office Visit [facility] [address] [place] [address] Dany Carpenter Dental calculus (Primary Dx) Social History Tobacco Use Types Packs/Day Years [...] Pulse 65 07/21/2024 11:15 AM EST Temperature - - Respiratory Rate - - Oxygen Saturation - - Inhaled Oxygen Concentration - - Weight - - Height - - Body Mass Index - - documented in this encounter Progress Notes * Dany Carpenter - 07/21/2024 11:00 AM EST Patient ID: Patsy Abdi is a 28 y.o. female. Time Out: Timeout Date: 07/21/24, Timeout Time: 1116 Location: [facility] Tooth: Maxilla and Mandible Procedure: Prophylaxis Verified the above with patient, certified surgical first assistant, and provider. Confirmed via patient's chart, intraorally and by radiographs. Corporate Events Director: not applicable Medical Hx: Vitals: Blood pressure 122/64, pulse 65, last menstrual period 05/03/2024. Medications, Med Hx reviewed with patient and updated in chart. Treatment Provided Dental procedures in this visit D1110 - PROPHYLAXIS - ADULT Full (Completed) Service provider: Dany Carpenter Billing provider: Xavier Paredes DMD D1330 - ORAL HYGIENE INSTRUCTIONS (Completed) Service provider: Dany Carpenter Billing provider: Xavier Paredes DMD D9450 - CASE PRESENTATION, DETAILED AND EXTENSIVE TREATMENT PLANNING (Completed) Service provider: Dany Carpenter Billing provider: Xavier Paredes DMD Instruments Used: Ultrasonic Scalers and Prophy angle Fluoride: N/A Oral Cancer Screening: No lesions Head/Neck Exam: No Lesions Calculus: Light and Localized Plaque: Light and Generalized Stain: Light and Generalized Bleeding: Light and Localized Gingiva: Healthy OH: Fair Perio Chart: Not Completed Oral hygiene instructions provided to patient including brushing technique and flossing. Recommendations: Odonnell two times daily, modified ohara technique, Floss daily Recall Frequency: 6 mo NV: 6mr Hygienist: Dany Carpenter RDH documented in this encounter Plan of Treatment Scheduled Orders Name Type Priority Associated Diagnoses Orde r Schedule PROPHYLAXIS - ADULT Dental Routine 1 Occ urrences starting 07/21/2024 documented as of this encounter Procedures Procedure Name Priority Date/Time Associated Diagnosis Comments Full PROPHYLAXIS - ADULT Routine 025 11:00 AM EST ORAL HYGIENE INSTRUCTIONS Routine 2024 11:00 AM EST CASE PRESENTATION, DETAILED AND EXTENSIVE TREATMENT PLANNING Routine 07/21/2024 11:00 AM EST documented in this encounter Visit Diagnoses Diagnosis Dental calculus- Primary Accretions on teeth documented in this encounter Additional Health Concerns Assessment Noted Time PHQ-9 Depression Total Score: 0 07/13/19 25 11:28 AM EST documented as of this encounter Care Teams Professional Shopper Relationship Specialty Start Date End Date Mery Masters FNP [address] [place] [phone] PCP - General Family Medicine 07/03/21 documented as of this encounter
--- OUTSIDE RECORDS SUMMARY | 2024-07-21 16:30 | XMS_ITS | Encounter Summary ---
Author Organization [facility] Address [address] [facility] 7t [place] [address] Care Team Providers Care Air Drill Operator Name Role Phone Joniras Mery DOYLE Primary Care Provider [phone] Reason for Referral * Imaging (Urgent) - Authorized Specialty Diagnoses / Procedures Referred By Contmichael t Referred To Contact Radiology Diagnoses Mass overlapping multiple quadrants of left breast Procedures BI Mammogram Diagnostic Tomosynthesis Bilateral Kell Pritchett CNM [address] [place] [address] Phone: tel: fax: [address] Phone: tel: fax: Referral ID Status Reason Start Date Expiration Date V isits Requested Visits Authorized [id number] Authorized 07/13/2024 07/13/2025 1 1 * Imaging (Urgent) - Authorized Specialty Diagnoses / Procedures Referred By Contac t Referred To Contact Radiology Diagnoses Mass overlapping multiple quadrants of left breast Procedures BI US Breast Complete Left Kell Pritchett CNM [address] [place] [address] Phone: tel: fax: [address] Phone: tel: fax: Referral ID Status Reason Start Date Expiration Date V isits Requested Visits Authorized [id number] Authorized 07/13/2024 07/13/2025 1 1 Reason for Visit * Reason Comments Gynecologic Exam Encounter Details Date Type Department Care Team (Latest Contact Info) Description 07/13/2024 1:45 PM EST Procedure Visit [facility] [address] [place] [address] Kell Pritchett CNM [address] [place] [address] Cervical cancer screening (Primary Dx); Checking of [...] No triggering factors. No family history of breast/[employer]ENT cancer that she is aware of. No [...] documented as of this encounter Care Teams Air Drill Operator Relationship Specialty Start Date End Date Mery Masters FNP [address] [place] [phone] PCP - General Family Medicine 07/03/21 documented as of this encounter
--- OUTSIDE RECORDS SUMMARY | 2024-07-21 16:30 | XMS_ITS | Encounter Summary ---
Author Organization [employer] Address [address] [facility] 7 [place] [address] Care Team Providers Care Algorithm Design Engineer Name Role Phone Mery Masters Primary Care Provider [phone] Reason for Visit * Reason Onset Date Comments Appointment Request 08/20/2022 Encounter Details Date Type Department Care Team (Late st Contact Info) Description 08/20/2022 Telephone [facility] MEDICINE [address] [place] [address] Mery Masters FNP [address] [place] [address] Appointment Request Social History Tobacco Use Types [...] 3:02pm yr ) Please contact pt at [phone] documented in this encounter Plan of Treatment Not on file documented as of this encounter Visit Diagnoses Not on filedocumented in this encounter Care Teams Algorithm Design Engineer Relationship Specialty Start Date End Date Mery Masters FNP [address] [place] [phone] PCP - General Family Medicine 07/03/21 documented as of this encounter
--- OUTSIDE RECORDS SUMMARY | 2024-07-21 16:31 | XMS_ITS | Encounter Summary ---
Author Organization [employer] Address [address] [facility] 7 [place] [address] Care Team Providers Care Electromechanical Inspector Name Role Phone JoniMery mcginnis DOYLE Primary Care Provider [phone] Reason for Visit * Reason Onset Date Comments appt per provider 08/27/2023 Encounter Details Date Type Department Care Team (Late st Contact Info) Description 08/27/2023 Telephone [facility] ADULT DENTAL [address] [place] [address] Xavier Paredes, DMD [address] [place] [address] appt per provider Social History Tobacco Use [...] extraction. Mery Masters provider for patient in [facility] sent referral in system and questions patient appt for tx to be rendered due to patient being in pain. I did explain that she is able to come as an emergency patientif the pain is that bad but that I would send request to dental for scheduling per provider and [facility] referral request DR documented in this encounter Plan of Treatment Not on file documented as of this encounter Visit Diagnoses Not on filedocumented in this encounter Additional Health Concerns Assessment Noted Time PHQ-9 Depression Total Score: 3 08/14/19 24 9:59 AM EDT documented as of this encounter Care Teams Electromechanical Inspector Relationship Specialty Start Date End Date Mery Masters FNP [address] [place] [phone] PCP - General Family Medicine 07/03/21 documented as of this encounter
--- OUTSIDE RECORDS SUMMARY | 2024-07-21 16:31 | XMS_ITS | Encounter Summary ---
Author Organization [facility] Address [address] [facility] 7t [place] [address] Care Team Providers Care Surface Water Technician Name Role Phone JoniMery mcginnis DOYLE Primary Care Provider [phone] Encounter Details Date Type Department Care Team ([facility] st Contact Info) Description 06/25/2024 Telephone [facility] ADULT DENTAL [address] [place] [address] Kenny Vides, DMD [address] [place] [address] Social History Tobacco Use Types Packs/Day Years [...] documented as of this encounter Care Teams Surface Water Technician Relationship Specialty Start Date End Date Mery Masters FNP [address] [place] [phone] PCP - General Family Medicine 07/03/21 documented as of this encounter
--- OUTSIDE RECORDS SUMMARY | 2024-07-21 16:31 | XMS_ITS | Referral Summary ---
Author Organization [facility] Address [address] [place] [address] Care Team Providers Care Cellophane Worker Name Role Phone Mery Masters Primary Care Provider [phone] Allergies No known active allergies Medications topiramate [...] Currently on Midrodrine, Metoprolol, Fluodrocortisone Following with [facility] Cardiology - Dr Vasquez Assessment & Plan [...] maneuvers such as leg crossing and squatting. [email or web address] Migraine without aura and wi thout status [...] female with LIANA, migraines, who presents to [facility] for routine follow-up regarding [...] Treatment Not on file Insurance [address] [place] [id number] [facility] Care Teams Cellophane Worker Relationship Specialty Start Date End Date Mery Masters [address] [place] [address] PCP - General Family Medicine 08/16/23
--- OUTSIDE RECORDS SUMMARY | 2024-07-21 16:31 | XMS_ITS | Encounter Summary ---
Author Organization [employer] Address [address] [facility] 7t [place] [address] Care Team Providers Care Rn Transitional Care Name Role Phone JoniMery mcginnis DOYLE Primary Care Provider [phone] Encounter Details Date Type Department Care Team ([facility] st Contact Info) Description 07/06/2024 Orders Only [facility] ADULT DENTAL [address] [place], [place] [phone] Xavier Paredes, DMD [address] [place] [address] Social History Tobacco Use Types Packs/Day Years [...] others, in a hotel, in a senior living, living outside on the street, on a [...] Procedure Name Priority Date/Time Associated Diagnosis Comments HPV DNA, LOW/HIGH RISK Routine 07/13/2024 2:30 PM EST BACTERIAL VAGINOSIS PANEL Routine 07/13/2024 2:20 PM EST documented in this encounter Results * (ABNORMAL) HPV DNA, Low/High Risk (07/13/2024 2:30 PM EST) HPV High Risk Positive(A) Negative [facility] HPV Genotype 16 Negative Negative [facility] HPV Genotype 18 Negative Negative [facility] Comment:HPV testing performe d at [facility] (CLIA#[id number]), [address] [place] [address].Testing for HPV was performed using the Yo[employer]system. The presence of HPV in the female [...] 2:30 PM EST 07/14/2024 9:30 AM EST Kell Pritchett CNM LAB BLOOD ORDERABLES Clari l Result Performing Organization Address [facility] Co de Phone Number [facility] [address] [place] [phone] * Bacterial Vaginosis (07/13/2024 2:20 PM EST) TRICHOMONAS VAGINALIS DETECTION BY PCR NOT DETECTED Not Detect [facility] BACTERIAL VAGINOSIS DETECTION BY PCR NEGATIVE Negative [facility] Comment:The BV organism targ ets of [...] DETECTION BY PCR NOT DETECTED Not Detect [facility] Stella glab krusei PCR NOT DETECTED Not Detect [facility] 07/13/2024 2:20 PM EST 07/13/2024 4:46 PM EST us Mery KWON LAB MICROBIOLOGY - GENERAL ORD ERABLES Final Result Performing Organization Address [facility] Co de Phone Number [facility] [address] [place] [phone] documented in this encounter Visit Diagnoses Not on filedocumented in this encounter Additional Health Concerns Assessment Noted Time PHQ-9 Depression Total Score: 3 08/14/19 24 9:59 AM EDT documented as of this encounter Care Teams Rn Transitional Care Relationship Specialty Start Date End Date Mery Masters FNP [address] [place] [address] PCP - General Family Medicine 07/03/21 documented as of this encounter
--- OUTSIDE RECORDS SUMMARY | 2024-07-21 16:31 | XMS_ITS | Encounter Summary ---
Author Organization [employer] Address [address] [facility] [address] [place] [address] Care Team Providers Care Community Relations Advisor Name Role Phone Mery Masters Primary Care Provider [phone] Encounter Details Date Type Department Care Team ([facility] st Contact Info) Description 07/21/2024 Orders Only [facility] CHC MED & PEDS [address] [place], [place] [phone] Mery Masters FNP [address] [place] [address] Elevated bilirubin (Primary Dx) Social History Tobacco Use Types [...] as of this encounter Plan of Treatment Scheduled Orders Name Type Priority Associated Diagnoses Orde r Schedule Hepatic Function Panel Lab Routine Elevated bilirubin Expected: 07/21/2024 (Approximate), Expires: 07/21/2025 documented as of this encounter Visit Diagnoses Diagnosis Elevated bilirubin- Primary documented in this encounter Additional Health Concerns Assessment Noted Time PHQ-9 Depression Total Score: 0 07/13/19 25 11:28 AM EST documented as of this encounter Care Teams Community Relations Advisor Relationship Specialty Start Date End Date Mery Masters FNP [address] [place] [address] PCP - General Family Medicine 07/03/21 documented as of this encounter
--- OUTSIDE RECORDS SUMMARY | 2024-07-21 16:31 | XMS_ITS | Encounter Summary ---
Author Organization [employer] Address [address] [facility] 7 [place] [address] Care Team Providers Care Pouncer Machine Name Role Phone Mery Masters Primary Care Provider [phone] Reason for Visit * Reason Onset Date Comments Nurse Triage 06/20/2023 Encounter Details Date Type Department Care Team (Late st Contact Info) Description 06/20/2023 Telephone [facility] [address] [place] [address] Mery Masters FNP [address] [place], [place] [phone] Nurse Triage Social History Tobacco Use Types [...] POTS and dizziness. (Her address is in [place], so hopefully we can schedule her at [facility]) * Telephone Encounter - Ivy Lynn RN - 06/20/2023 12:22 PM EST called pt to triage, spoke to pt. through [employer]. pt states left ear ache and decreased [...] on filedocumented in this encounter Care Teams Pouncer Machine Relationship Specialty Start Date End Date Mery Masters FNP [address] [place] [phone] PCP - General Family Medicine 07/03/21 documented as of this encounter
--- OUTSIDE RECORDS SUMMARY | 2024-07-21 16:31 | XMS_ITS | Clinical Summary ---
Author Organization [facility] Address [address] [place] [address] Care Team Providers Care City Controller Name Role Phone Mery Masters Primary Care Provider [phone] Allergies No known active allergies Medications topiramate [...] Currently on Midrodrine, Metoprolol, Fluodrocortisone Following with [facility] Cardiology - Dr Vasquez Assessment & Plan [...] maneuvers such as leg crossing and squatting. [email or web address] Migraine without aura and wi thout status [...] female with LIANA, migraines, who presents to [facility] for routine follow-up regarding [...] Pediat miguelina (0-5 Years) and At-Risk Patients (6-50 Years) Aged Out No longer eligible b ased on patient's age to complete this topic Insurance [facility] [place] [id number] HS/FREE CARE Care Teams City Controller Relationship Specialty Start Date End Date Mery Masters [address] [place] [phone] PCP - General Family Medicine 08/16/23
--- OUTSIDE RECORDS SUMMARY | 2024-07-21 16:31 | XMS_ITS | Encounter Summary ---
Author Organization [employer] Address [address] [facility] 7 [place] [address] Care Team Providers Care Supervisor Painting Department Name Role Phone Mery Masters Primary Care Provider [phone] Reason for Visit * Reason Onset Date Comments Results 07/21/2024 Encounter Details Date Type Department Care Team ([facility] st Contact Info) Description 07/21/2024 Telephone [facility] CHC MED & PEDS [address] [place], [place] [phone] Mery Masters FNP [address] [place], [place] [phone] Results Social History Tobacco Use Types Packs/Day [...] encounter Miscellaneous Notes * Telephone Encounter - Pam Vicente - 07/21/2024 11:44 AM EST Patient in requesting lab results. Patient states she was supposed to get called and still waiting on lab results. Would like a f/u call. documented in this encounter Plan of Treatment Not on file documented as of this encounter Visit Diagnoses Not on filedocumented in this encounter Additional Health Concerns Assessment Noted Time PHQ-9 Depression Total Score: 0 07/13/19 25 11:28 AM EST documented as of this encounter Care Teams Supervisor Painting Department Relationship Specialty Start Date End Date Mery Masters FNP [address] [place] [phone] PCP - General Family Medicine 07/03/21 documented as of this encounter
--- OUTSIDE RECORDS SUMMARY | 2024-07-21 16:31 | XMS_ITS | Encounter Summary ---
Author Organization [employer] Address [address] [facility] 7 [place] [address] Care Team Providers Care Bander Operator Name Role Phone Mery Masters Primary Care Provider [phone] Reason for Visit * Reason Onset Date Comments Appointment Request 10/03/2023 Encounter Details Date Type Department Care Team ([facility] st Contact Info) Description 10/03/2023 Telephone [facility] [address] [place] [address] Mery Masters FNP [address] [place], [place] [phone] Appointment Request Social History Tobacco Use Types [...] agrees to f/u appt on 10/23/23 in [facility]. * Telephone Encounter - DOYLE Rodrigues [...] documented as of this encounter Care Teams Bander Operator Relationship Specialty Start Date End Date Mery Masters FNP [address] [place] [phone] PCP - General Family Medicine 07/03/21 documented as of this encounter
[2024-07-21 17:01] LABS: Alanine Aminotransferase 14 U/L (0-31); Albumin Level 4.6 g/dL (3.5-5.0); Alkaline Phosphatase 44 U/L (39-117); Aspartate Amino Transferase 16 U/L (5-31); Bilirubin Direct 0.3 mg/dL (0.0-0.5); Bilirubin Total 1.2 mg/dL (0.0-1.0); Total Protein 8.3 g/dL (6.5-8.0)
== END 2024-07-21 15:42 | disposition home or self-care (01) ==
LOC: HO.HHCL 15:41
PROVIDERS: Visit Provider Registered Nurse
DX: R17 Unspecified jaundice (principal)
CPT/HCPCS: 36415; 80076